=== PATIENT | female | born 1985 | race African-American/Black ===

== ENCOUNTER 2020-09-30 04:15 | Inpatient (IN) | payer OTHER ==
[~2020-09-30] VITALS: Ht 165.1 cm; Wt 182.0 kg
[~2020-09-30 04:15] MED LIST: ACET325T9 PO; FURO-69 PO; GLIP10TA13 PO; GLYB2.5T2 PO; IBUP-1060 PO; LABE200T4 PO; LISI1TAB23 PO; METH500T10 PO; NIFE10CA PO; NIFE20CA PO; NIFE30TA95 PO; OXYC1TAB15 PO; OXYC1TAB19 PO; PREN1COM12 PO; SERT25TA; TRAM50TA PO
--- NOTE | 2020-09-30 04:41 | PHYS DOC ---
Past Medical History Past Medical History: Hypertension Past Surgical History: Additional Past Surgical Histo: C-sec x3. Smoking Status: Never Smoker Alcohol Use: None Drug Use: None General Adult EDM: Chief Complaint: SHORTNESS OF BREATH HPI: HPI: Patient is a 34 year old female with past medical history hypertension diabetes presents with a chief complaint of shortness of breath. Patient was diagnosed with COVID-19 this past Thursday. Patient states she had symptoms which included shortness of breath cough fever muscle aches x1 week. Patient is not vaccinated against COVID-19. Patient states over the last 2 days shortness of breath is progressed to become worse. Patient states she cannot catch her breath therefore she called 911. Upon EMS arrival patient's oxygen saturation in the upper 80s on room air. On arrival patient patient on 15 L nonrebreather with oxygen saturations 91-92%. Patient is currently febrile 100.4 axillary. Review of Systems: Review of Systems: Review of systems: Constitutional symptoms- Positive fever, no chills. Eyes- No Discharge, No Visual Loss Respiratory symptoms- Positive shortness of breath, No wheezing, No Dyspnea on Exertion positive cough Cardiovascular Systems; Positive chest pain, No Palpitations, No syncope Gastrointestinal symptoms: NO abdominal pain, no nausea, no vomiting or diarrhea. Genitourinary symptoms: No dysuria. Musculoskeletal symptoms: No back pain No extremity pain. NEUROLOGICAL Symptoms: No headache, no generalized weakness; No focal Weakness Skin: No rash. Heart Score: C/O Chest Pain: N/A Risk Factors: Risk Factors: DM, Current or recent (<one month) smoker, HTN, HLP, family history of CAD, obesity. Risk Scores: Score 0 - 3: 2.5% MACE over next 6 weeks - Discharge Home Score 4 - 6: 20.3% MACE over next 6 weeks - Admit for Clinical Observation Score 7 - 10: 72.7% MACE over next 6 weeks - Early Invasive Strategies Current Medications: Current Medications Medications (Trade) Dose Ordered Sig/Vidal Start Time Stop Time Status Last Admin Dose Admin Acetaminophen (Tylenol) 650 mg 1X ONCE 09/30/20 04:45 09/30/20 04:46 UNV Dexamethasone Sodium Phosphate (Decadron) 10 mg 1X ONCE 09/30/20 05:00 09/30/20 05:01 Allergies: Allergies: Allergies Coded Allergies Type Severity Reaction Last Updated Verified No Known Drug Allergies 2/17/14 No Physical Exam: PE: General: alert, no acute distress. Skin: warm, dry and intact, no erythema, no rash. HENT: bilateral external ears normal, oropharynx moist, nose normal. Head:: Normocephalic, atraumatic. Neck: Trachea midline. Eyes: EOMI, Normal conjunctiva, No drainage CARDIOVASCULAR: Tachycardic RESPIRATORY: No respiratory distress., Tachypneic, decreased breath sounds diffuse Back: Full range of motion. MUSCULOSKELETAL: Full range of motion of bilateral upper and lower extremities. GASTROINTESTINAL: Abdomen soft without rebound or guarding. NEUROLOGICAL: Alert and noted to person, place and time. No neurological deficits observed Psychiatric: Cooperative. Normal judgment EKG: EKG: [] Performed at 0426 Rate 99 Normal sinus rhythm No ST elevation No ST depression No acute IN Radiology/Procedures: Radiology/Procedures: [] Impression: WET READ diffuse infiltrates Course & Med Decision Making: Course & Med Decision Making Pertinent Labs and Imaging studies reviewed. (See chart for details) []Patient hypoxic. Diagnoised with COVID 19 on thursday. Treated with omental oxygen, decadron, and tylenol. Lactic acid and blood cultures obtained. Admitted to hospitalist. Started on Levaquin Dragon Disclaimer: Jerzy Disclaimer: This electronic medical record was generated, in whole or in part, using a voice recognition dictation system. Departure Departure Impression: Primary Impression: COVID-19 Additional Impression: Hypoxia Disposition: ADMITTED INPATIENT Condition: STABLE LAITH SHAH DO Sep 30, 2020 04:41
[2020-09-30] MEDS ORDERED: DEXAMETHASONE SOD PHOS 4 MG/ML VIAL IVP ONE (05:00)
[2020-09-30] MEDS ORDERED: ACETAMINOPHEN 325 MG TABLET. PO ONE (05:00)
[2020-09-30] MEDS ORDERED: ONDANSETRON PF 4 MG/2 ML VIAL. IVP PRN (05:15)
--- NOTE | 2020-09-30 05:25 | RAD ---
AP chest x-ray HISTORY: Cough, nausea, vomiting, Covid infection. FINDINGS: Heart size upper limits normal. Mediastinal silhouette is normal. No pneumothorax. No pleur al effusions. Extensive bilateral pulmonary opacities with consolidation at the right middle lobe amy houetting the minor fissure and bilateral lower lobe consolidation with air bronchograms. IMPRESSION: Extensive pulmonary opacities with areas of consolidation at the lung bases most likely m ultilobar pneumonia versus noncardiogenic pulmonary edema from ARDS. Electronically signed by: Carlos Swartz MD (09/30/2020 5:23 AM) [facility]
[2020-09-30] MEDS: MORPHINE SULFATE 4 MG/ML INJ. IVP PRN ×3 (05:33→22:34)
--- NOTE | 2020-09-30 05:48 | EKG ---
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
[2020-09-30 05:54] LABS: BASO % 0 % (0-3); EOS % 0 % (0-3); HEMATOCRIT 38.2 % (36.0-47.0); HEMOGLOBIN 12.8 g/dL (12.0-15.5); LYMPH # 0.4 x10^3/uL (1.0-4.8); LYMPH % 3 % (24-48); MEAN CORPUSCULAR HEMOGLOBIN 28 pg (25-35); MEAN CORPUSCULAR HGB CONC 34 g/dL (31-37); MEAN CORPUSCULAR VOLUME 83 fL (79-100); MONO # 0.3 x10^3/uL (0.0-1.1); MONO % 2 % (0-9); NEUT # 11.5 x10^3/uL (1.8-7.7); NEUT % 94 % (31-73); PLATELET COUNT 268 x10^3/uL (140-400); RED BLOOD COUNT 4.62 x10^6/uL (3.50-5.40); RED CELL DISTRIBUTION WIDTH 13.6 % (11.5-14.5); WHITE BLOOD COUNT 12.2 x10^3/uL (4.0-11.0)
[2020-09-30 06:10] LABS: ALBUMIN 2.2 g/dL (3.4-5.0); ALBUMIN/GLOBULIN RATIO 0.4 (1.0-1.7); CALCIUM 8.8 mg/dL (8.5-10.1); CREATININE 0.8 mg/dL (0.6-1.0); GFR 98.8; TOTAL BILIRUBIN 0.4 mg/dL (0.2-1.0); TOTAL PROTEIN 7.9 g/dL (6.4-8.2)
[2020-09-30 06:12] LABS: POTASSIUM 2.8 mmol/L (3.5-5.1)
[2020-09-30] MEDS ORDERED: POTASSIUM CHLORIDE 20 MEQ TABLET.ER. PO ONE (06:30)
[2020-09-30 09:30] LABS: % BANDS 24 % (0-9); % LYMPHS 2 % (24-48); % MONOS 3 % (0-10); % SEGS 71 % (35-66); PLT ESTIMATE ADEQUATE (ADEQUATE)
[2020-09-30] MEDS ORDERED: DEXTROSE 50% 25 GM / 50ML DISP.SYRIN. IV PRN (12:45)
[2020-09-30 13:00] VITALS: BP 165/98
[2020-09-30] MEDS ORDERED: INSULIN LISPRO 300 UNITS/3 ML VIAL. SQ ONE (13:00)
[2020-09-30] MEDS ORDERED: guaiFENesin/CODEINE 100mg/10mg 5 ML LIQUID PO PRN (14:00)
[2020-09-30 15:00] VITALS: BP 169/93
[2020-09-30] MEDS ORDERED: REMDESIVIR LOAD in IV NORMAL SALINE 250ML TV IV ONE (15:00)
[2020-09-30] MEDS: ASPIRIN CHEWABLE 81 MG TABLET. PO SCH (15:59)
[2020-09-30] MEDS: MULTIVITAMIN with MINERAL TABLET. PO SCH (15:59)
[2020-09-30] MEDS: cefTRIAXone IV Push 1 GM VIAL. IVP SCH (15:59)
[2020-09-30] MEDS: ACETAMINOPHEN 325 MG TABLET. PO PRN ×2 (16:01→22:33)
[2020-09-30] MEDS: INSULIN LISPRO 300 UNITS/3 ML VIAL. SQ SCH (17:00)
[2020-09-30 19:00] VITALS: BP 138/79
[2020-09-30] MEDS ORDERED: HYDR25TA10 PO (20:26)
[2020-09-30] MEDS ORDERED: LOSA50TA15 PO (20:26)
[2020-09-30] MEDS ORDERED: FLUO60TA PO (20:26)
--- NOTE | 2020-09-30 20:29 | NUR ---
I.E. HOME MEDICATIONS: PATIENT UNABLE TO ACCURATELY REPORT HOME MEDICATIONS AND DOSAGES. COULD ONLY NAME HYDROCHLOROTHIAZIDE.
[2020-09-30] MEDS: methylPREDNISolone SOD SUCC PF 40 MG/ML VIAL. IV SCH (20:55)
[2020-09-30] MEDS ORDERED: INSULIN GLARGINE SYRINGE. SQ SCH (21:00)
[2020-09-30 22:00] VITALS: BP 144/82
[2020-09-30] MEDS ORDERED: ENOXAPARIN 40 MG/0.4 ML SYRINGE. SQ SCH (22:00)
--- NOTE | 2020-09-30 22:13 | CONS ---
PULMONARY CONSULTATION ATTENDING PHYSICIAN: Isai Laboy MD REASON FOR CONSULTATION: Respiratory failure, COVID-19 pneumonia, ARDS. HISTORY OF PRESENT ILLNESS: The patient is a 34-year-old morbidly obese female who has a BMI of 58. The patient was diagnosed with COVID-19 past Thursday. She was brought into the hospital with increasing cough, muscle aches and progressive dyspnea. She is not vaccinated against COVID-19. The patient called 911. She was brought into the emergency room. Her oxygen saturations were in the 80s on room air. She is now currently on the floor. She has high-grade fevers up to 102.3. The patient was seen by me via telemedicine. She has been on 15 liters nonrebreather mask and in addition, she is also on 15 liters high flow cannula. Her oxygen saturations with minimal activity drop in the high 80s. She denies any nausea, vomiting, no diarrhea. She says she does have some pain all her body. She is morbidly obese. She also has other comorbidities including diabetes and hypertension. PAST MEDICAL HISTORY: Significant for hypertension, diabetes. PAST SURGICAL HISTORY: . SOCIAL HISTORY: Nonsmoker. ALLERGIES: None. MEDICATIONS: Reviewed as listed in the MRAD including IV Solu-Medrol, doxycycline, remdesivir, and Rocephin. REVIEW OF SYSTEMS: A 12-point system obtained. Pertinent positives discussed in my presence illness, otherwise noncontributory. All systems that were negative were reviewed as well. FAMILY HISTORY: Noncontributory to lungs. PHYSICAL EXAMINATION: GENERAL: She is ill appearing. VITAL SIGNS: Blood pressure 138/79, pulse ox is 89-90% on maximum amount of oxygen as discussed above. Fever of 102.3. She appears mildly tachypneic. She is morbidly obese. EXTREMITIES: With trace pitting edema. No physical exam performed, but this is a visual inspection of the patient. LABORATORY DATA: Reviewed. White cell count 12.2, hemoglobin 12.8, platelets are 268. Potassium 2.8, BUN 6, creatinine 0.8. Chest x-ray reviewed. It revealed bilateral infiltrates. IMPRESSION: 1. Acute hypoxic respiratory failure secondary to COVID-19 viral pneumonia/ARDS/acute lung injury. 2. Underlying morbid obesity with a BMI of 58, is another main contributing factor to the severity of hypoxia. 3. No significant tobacco history. 4. Abnormal chest x-ray with bilateral interstitial infiltrates consistent with viral pneumonia. 5. Hypokalemia. 6. High-grade fever secondary to COVID-19 viral infection. RECOMMENDATIONS: 1. Discussed with RN and the patient. At this time, I would initiate Vapotherm at 100% FiO2 and 40 liters flow. I am concerned about her respiratory status and a high risk for intubation. I will transfer to the ICU if bed is available. 2. Continue present IV steroids. 3. Remdesivir per protocol. 4. Continue empiric antibiotics. 5. Monitor for fever. 6. Add Lovenox for DVT prophylaxis. 7. Replace potassium. 8. Discussed with RN. Chart reviewed, imaging studies reviewed. The patient is very critically ill. Critical care time 35 minutes including decision making. ANETTE DR: NATALYA/spencer TID: [id number]
[2020-09-30] MEDS ORDERED: STERILE WATER for RESP 1,000 ML BAG. INH PRN (22:15)
[2020-09-30] MEDS: DOXYCYCLINE HYCLATE 100 MG in IV DEXTROSE 5% 100ML 100 ML IV SCH (22:35)
[2020-10-01] VITALS (20 sets, daily range): BP systolic 0–167; BP diastolic 81–170
--- NOTE | 2020-10-01 04:41 | NUR ---
PT TRANSFERRED TO ROOM [address] [place] [address] AT APPROX 2130. PT WAS ON 15L O2 VIA NRB, O2 SATURATION 88%, AND VISIBLY ANXIOUS. REMDESIVIR RESTARTED, AND TELEHEALTH VISIT WITH DR CURTIS PERFORMED AT BEDSIDE. PER DR CURTIS, VAPOTHERM WAS ORDERED AND PT STATED SHE WAS AGREEABLE TO INTUBATION IF NEEDED. CALL TO DR MARIE PLACED FOR ORDER FOR MOSCOSO CATHETER AND IV ATIVAN FOR ANXIETY. PT WAS MOVED TO ROOM 66 D/T MONITOR CONNECTION ISSUES IN ROOM 676, VAPOTHERM INITIATED AT 40LPM OF O2 PLUS 15L NRB. MORPHINE AND ATIVAN ADMINISTERED, O2 SATURATION NOW 96%. PT WAS EDUCATED ON NEED FOR VAPOTHERM, POSSIBLE NEED FOR INTUBATION, NEED FOR PICC LINE, AND USE OF CALL LIGHT. PT CURRENTLY APPEARS TO BE RESTING COMFORTABLY AT THIS TIME. WILL CONTINUE TO MONITOR.
[2020-10-01 07:35] LABS: BASE EXCESS ABG 4 mmol/L (-3-3); HCO3 ABG 26 mmol/L (21-28); PCO2 ABG 32 mmHg (35-46); PO2 ABG 55 mmHg (85-108); SAT O2 ABG 93 % (92-99)
[2020-10-01 07:37] LABS: FIO2 ABG 100% VAPOTHERM
[2020-10-01] MEDS: ASPIRIN CHEWABLE 81 MG TABLET. PO SCH (08:21)
[2020-10-01] MEDS: MULTIVITAMIN with MINERAL TABLET. PO SCH (08:21)
[2020-10-01] MEDS: methylPREDNISolone SOD SUCC PF 40 MG/ML VIAL. IV SCH ×2 (08:21→21:39)
[2020-10-01] MEDS: FAMOTIDINE 20 MG/2 ML VIAL IVP SCH ×2 (08:21→21:39)
[2020-10-01] MEDS ORDERED: ETOMIDATE 20 MG/10 ML VIAL. IV ONE ×2 (09:11→09:30)
[2020-10-01] MEDS ORDERED: SUCCINYLCHOLINE 200 MG/10 ML VIAL. ONE (09:11)
--- NOTE | 2020-10-01 09:21 | PDOC ---
PULMONARY PROGRESS NOTES DATE: 10/01/20 TIME: 09:18 Subjective Patient is currently on 100% Vapotherm at 40 L with additional 100% nonrebreather, patient has tachycardic, tachypneic and hypertensive, she appears in mild distress Nursing reports that she is intermittently hypoxic, and taking off her mask Afebrile overnight Vitals Vital Signs Date Time Temp Pulse Resp B/P (MAP) Pulse Ox O2 Delivery O2 Flow Rate FiO2 10/01/20 08:05 66 vapotherm 40.0 10/01/20 02:40 95.7 112 19 136/87 (103) 95.7 Comments Patient seen during pandemic Mild distress Accessory muscle use No obvious rash or edema Labs Laboratory Tests Test 09/30/20 05:15 09/30/20 12:21 09/30/20 16:50 09/30/20 20:28 White Blood Count 12.2 x10^3/uL (4.0-11.0) Red Blood Count 4.62 x10^6/uL (3.50-5.40) Hemoglobin 12.8 g/dL (12.0-15.5) Hematocrit 38.2 % (36.0-47.0) Mean Corpuscular Volume 83 fL (79-100) Mean Corpuscular Hemoglobin 28 pg (25-35) Mean Corpuscular Hemoglobin Concent 34 g/dL (31-37) Red Cell Distribution Width 13.6 % (11.5-14.5) Platelet Count 268 x10^3/uL (140-400) Neutrophils (%) (Auto) 94 % (31-73) Lymphocytes (%) (Auto) 3 % (24-48) Monocytes (%) (Auto) 2 % (0-9) Eosinophils (%) (Auto) 0 % (0-3) Basophils (%) (Auto) 0 % (0-3) Neutrophils # (Auto) 11.5 x10^3/uL (1.8-7.7) Lymphocytes # (Auto) 0.4 x10^3/uL (1.0-4.8) Monocytes # (Auto) 0.3 x10^3/uL (0.0-1.1) Eosinophils # (Auto) 0.0 x10^3/uL (0.0-0.7) Basophils # (Auto) 0.0 x10^3/uL (0.0-0.2) Segmented Neutrophils % 71 % (35-66) Band Neutrophils % 24 % (0-9) Lymphocytes % 2 % (24-48) Monocytes % 3 % (0-10) Platelet Estimate Adequate (ADEQUATE) Sodium Level 138 mmol/L (136-145) Potassium Level 2.8 mmol/L (3.5-5.1) Chloride Level 96 mmol/L (98-107) Carbon Dioxide Level 26 mmol/L (21-32) Anion Gap 16 (6-14) Blood Urea Nitrogen 6 mg/dL (7-20) Creatinine 0.8 mg/dL (0.6-1.0) Estimated GFR (Cockcroft-Gault) 98.8 BUN/Creatinine Ratio 8 (6-20) Glucose Level 366 mg/dL (70-99) Lactic Acid Level 1.3 mmol/L (0.4-2.0) Calcium Level 8.8 mg/dL (8.5-10.1) Total Bilirubin 0.4 mg/dL (0.2-1.0) Aspartate Amino Transf (AST/SGOT) 50 U/L (15-37) Alanine Aminotransferase (ALT/SGPT) 46 U/L (14-59) Alkaline Phosphatase 93 U/L (46-116) Total Protein 7.9 g/dL (6.4-8.2) Albumin 2.2 g/dL (3.4-5.0) Albumin/Globulin Ratio 0.4 (1.0-1.7) Glucose (Fingerstick) 404 mg/dL (70-99) 326 mg/dL (70-99) 307 mg/dL (70-99) Test 10/01/20 07:30 O2 Saturation 93 % (92-99) Arterial Blood pH 7.53 (7.35-7.45) Arterial Blood pCO2 at Patient Temp 32 mmHg (35-46) Arterial Blood pO2 at Patient Temp 55 mmHg (85-108) Arterial Blood HCO3 26 mmol/L (21-28) Arterial Blood Base Excess 4 mmol/L (-3-3) FiO2 100% vapotherm Laboratory Tests Test 09/30/20 12:21 09/30/20 16:50 09/30/20 20:28 10/01/20 07:30 Glucose (Fingerstick) 404 mg/dL (70-99) 326 mg/dL (70-99) 307 mg/dL (70-99) O2 Saturation 93 % (92-99) Arterial Blood pH 7.53 (7.35-7.45) Arterial Blood pCO2 at Patient Temp 32 mmHg (35-46) Arterial Blood pO2 at Patient Temp 55 mmHg (85-108) Arterial Blood HCO3 26 mmol/L (21-28) Arterial Blood Base Excess 4 mmol/L (-3-3) FiO2 100% vapotherm Medications Active Scripts Medications Dose Route/Sig Max Daily Dose Days Date Category Fluoxetine Hcl 60 Mg Tablet 1 Tab PO DAILY 09/30/20 Reported Losartan Potassium 50 Mg Tablet 1 Tab PO DAILY 09/30/20 Reported Hydrochlorothiazide 25 Mg Tablet 1 Tab PO DAILY 09/30/20 Reported Labetalol Hcl 200 Mg Tablet 1 Tab PO BID 12/28/14 Rx Lasix (Furosemide) 20 Mg Tablet 1 Tab PO DAILY 12/28/14 Rx Percocet 5-325 Mg Tablet (Oxycodone/Acetaminophen) 1 Each Tablet 1 Tab PO Q4HRS W/A 12/28/14 Rx Ibuprofen 800 Mg Tablet 800 Mg PO Q6H PRN 12/28/14 Rx Methyldopa 500 Mg Tablet 500 Mg PO QID 12/23/14 Reported Zoloft (Sertraline Hcl) 25 Mg Tablet 25 Mg .ROUTE DAILY 12/23/14 Reported Glyburide 2.5 Mg Tablet 2.5 Mg PO QID 12/23/14 Reported Procardia (Nifedipine) 10 Mg Capsule 60 Mg PO DAILY 12/23/14 Reported Tylenol (Acetaminophen) 325 Mg Tablet 325 Mg PO 08/25/13 Reported Prena1 Plus Combo Pack ( No.39/Iron/Fa #6/Dha) 1 Each Combo..pkg 1 Each PO 08/25/13 Reported Impression . IMPRESSION: 1. Acute hypoxic respiratory failure secondary to COVID-19 viral pneumonia/ARDS/acute lung injury.----- worsening, plan for intubation 2. Underlying morbid obesity with a BMI of 58, is another main contributing factor to the severity of hypoxia. 3. No significant tobacco history. 4. Abnormal chest x-ray with bilateral interstitial infiltrates consistent with viral pneumonia. 5. Hypokalemia. 6. High-grade fever secondary to COVID-19 viral infection. Plan . Updated 10/01/2020 Patient is in mild distress, currently on Vapotherm 40 L 100% with additional 100% nonrebreather, proceed with intubation Chest x-ray and ABG, make changes as needed Continue IV steroids for full 10-day course, started on 09/30/2020 Continue remdesivir for full course Continue empiric antibiotics, currently on Rocephin and doxycycline HTN per PCP Monitor electrolytes per PCP Consult dietitian for tube feeding recommendations DVT/GI prophylaxis:lovenox Discussed with RN and RT message left for . will try to reach him again Critical care time 30 minutes 09/30/20 RECOMMENDATIONS: 1. Discussed with RN and the patient. At this time, I would initiate Vapotherm at 100% FiO2 and 40 liters flow. I am concerned about her respiratory status and a high risk for intubation. I will transfer to the ICU if bed is available. 2. Continue present IV steroids. 3. Remdesivir per protocol. 4. Continue empiric antibiotics. 5. Monitor for fever. 6. Add Lovenox for DVT prophylaxis. 7. Replace potassium. 8. Discussed with RN. Chart reviewed, imaging studies reviewed. The patient is very critically ill. NILO CURTIS MD Oct 01, 2020 09:21
[2020-10-01] MEDS: PROPOFOL 100 ML IV PRN ×5 (09:44→21:35)
[2020-10-01] MEDS ORDERED: SUCCINYLCHOLINE 200 MG/10 ML VIAL. IV ONE (09:45)
[2020-10-01] MEDS: MIDAZOLAM 100mg/100ml NS BAG 100 ML IV PRN ×2 (09:45→18:02)
[2020-10-01] MEDS ORDERED: PROPOFOL 10 MG/ML (20ML) VIAL. IV ONE (09:45)
[2020-10-01] MEDS: VECURONIUM BOLUS 10 MG VIAL. IV PRN (09:48)
--- NOTE | 2020-10-01 10:08 | PDOC1 ---
History and Physical Date of Admission Date of Admission DATE: 10/01/20 TIME: 10:05 Identification/Chief Complaint Chief Complaint SOA COVID POS History of Present Illness History of Present Illness 34 year old female past medical history hypertension diabetes presented with a chief complaint of shortness of breath. diagnosed with COVID-19 this past Thursday. in er c/o shortness of breath cough fever muscle aches x1 week. //not vaccinated against COVID-19. Patient states over the last 2 days shortness of breath is progressed to become worse. Patient states she cannot catch her breath therefore she called 911. Upon EMS arrival patient's oxygen saturation in the upper 80s on room air. On arrival in ER patient patient on 15 L nonrebreather NOW IN NEED OF INTUBATION FOR Covid 19 pneumonia // Viral sepsis Acute hypoxic resp failure Super morbid obesity CXR C/W Extensive pulmonary opacities with areas of consolidation // multilobar pneumonia versus noncardiogenic pulmonary edema from ARDS. Past Medical History Past Medical History Past Medical History Past Medical History: Hypertension Past Surgical History: Additional Past Surgical Histo: C-sec x3. Smoking Status: Never Smoker Alcohol Use: None Drug Use: None FHX OBESITY Family History Family History: Hypertension Social History Smoke: No ALCOHOL: none Drugs: None Current Problem List Problem List Problems Medical Problems: (1) COVID-19 Status: Acute (2) Hypoxia Status: Acute Current Medications Current Medications Current Medications Dexamethasone Sodium Phosphate (Decadron) 10 mg 1X ONCE IVP Last administered on 09/30/20at 04:48; Start 09/30/20 at 05:00; Stop 09/30/20 at 05:01; Status DC Acetaminophen (Tylenol) 650 mg 1X ONCE PO Last administered on 09/30/20at 04:56; Start 09/30/20 at 05:00; Stop 09/30/20 at 05:01; Status DC Ondansetron HCl (Zofran) 4 mg PRN Q8HRS PRN IVP NAUSEA/VOMITING 1ST CHOICE Last administered on 09/30/20at 05:32; Start 09/30/20 at 05:15; Stop 10/01/20 at 05:14; Status DC Morphine Sulfate (Morphine Sulfate) 4 mg PRN Q2HR PRN IVP SEVERE PAIN 7-10 Last administered on 09/30/20at 22:34; Start 09/30/20 at 05:15; Stop 10/01/20 at 05:14; Status DC Levofloxacin/ Dextrose 150 ml @ 100 mls/hr 1X ONCE IV Last administered on 09/30/20at 08:12; Start 09/30/20 at 06:00; Stop 09/30/20 at 07:29; Status DC Potassium Chloride (Klor-Con) 40 meq 1X ONCE PO Last administered on 09/30/20at 08:12; Start 09/30/20 at 06:30; Stop 09/30/20 at 06:31; Status DC Insulin Human Lispro (HumaLOG) 10 units 1X ONCE SQ Last administered on 09/30/20at 12:50; Start 09/30/20 at 13:00; Stop 09/30/20 at 13:01; Status DC Insulin Glargine (Lantus Syringe) 10 unit QHS SQ Last administered on 09/30/20at 20:56; Start 09/30/20 at 21:00 Insulin Human Lispro (HumaLOG) 0-7 UNITS TIDWMEALS SQ Last administered on 09/30/20at 17:00; Start 09/30/20 at 17:00 Dextrose (Dextrose 50%-Water Syringe) 12.5 gm PRN Q15MIN PRN IV SEE COMMENTS; Start 09/30/20 at 12:45 Acetaminophen (Tylenol) 650 mg PRN Q6HRS PRN PO MILD PAIN / TEMP > 100.3'F Last administered on 09/30/20at 22:33; Start 09/30/20 at 13:45 Remdesivir 200 mg/ Sodium Chloride 210 ml @ 210 mls/hr 1X ONCE IV Last administered on 09/30/20at 15:59; Start 09/30/20 at 15:00; Stop 09/30/20 at 15 :59; Status DC Remdesivir 100 mg/ Sodium Chloride 230 ml @ 460 mls/hr Q24H IV ; Start 10/01/20 at 15:00; Stop 10/04/20 at 15:29 Aspirin (Aspirin Chewable) 81 mg DAILYWBKFT PO Last administered on 10/01/20at 08:21; Start 09/30/20 at 15:00 Guaifenesin/ Codeine Phosphate (Robitussin Ac) 5 ml PRN Q6HRS PRN PO COUGH Last administered on 09/30/20 16:59; Start 09/30/20 at 14:00 Multivitamins (Thera M Plus) 1 tab DAILY PO Last administered on 10/01/20 08:21; Start 09/30/20 at 15:00 Ceftriaxone Sodium (Rocephin) 1 gm Q24H IVP Last administered on 09/30/20at 15:59; Start 09/30/20 at 15:00 Doxycycline Hyclate 100 mg/ Dextrose 100 ml @ 50 mls/hr Q12HR IV Last administered on 09/30/20at 22:35; Start 09/30/20 at 21:00 Methylprednisolone Sodium Succinate (SOLU-Medrol 40MG VIAL) 40 mg BID IV Last administered on 10/01/20 08:21; Start 09/30/20 at 21:00 Enoxaparin Sodium (Lovenox 40mg Syringe) 40 mg Q24H SQ ; Start 09/30/20 at 22:00; Status Cancel Enoxaparin Sodium (Lovenox 60mg Syringe) 60 mg Q12HR SQ Last administered on 10/01/20 08:22; Start 09/30/20 at 22:00 Sterile Water (WATER for RESP) 1,000 ml CONT PRN INH VIA VAPOTHERM DEVICE; St art 09/30/20 at 22:15 Lorazepam (Ativan Inj) 2 mg PRN Q4HRS PRN IVP ANXIETY / AGITATION Last administered on 10/01/20 04:20; Start 09/30/20 at 22:15 Famotidine (Pepcid Vial) 20 mg BID IVP Last administered on 10/01/20 08:21; Start 10/01/20 at 09:00 Fentanyl Citrate 30 ml @ 0 mls/hr CONT PRN IV SEE PROTOCOL Last administered on 10/01/20 09:55; Start 10/01/20 at 08:45 Propofol 100 ml @ 0 mls/hr CONT PRN IV PER PROTOCOL Last administered on 10/01/20 09:44; Start 10/01/20 at 08:45 Midazolam HCl 100 ml @ 0 mls/hr CONT PRN IV SEE PROTOCOL Last administered on 10/01/20 09:45; Start 10/01/20 at 08:45 Vecuronium Lingle (Norcuron Bolus) 6 mg Q4HRS PRN IV VENTILATOR COMPLIANCE Last administered on 10/01/20at 09:48; Start 10/01/20 at 08:45 Succinylcholine Chloride (Anectine) 200 mg STK-MED ONCE .ROUTE ; Start 10/01/20 at 09:11; Stop 10/01/20 at 09:11; Status DC Etomidate (Amidate) 20 mg STK-MED ONCE IV ; Start 10/01/20 at 09:11; Stop 10/01/20 at 09:11; Status DC Succinylcholine Chloride (Anectine) 100 mg 1X ONCE IV Last administered on 10/01/20at 09:42; Start 10/01/20 at 09:45; Stop 10/01/20 at 09:47; Status DC Propofol (Diprivan) 80 mg 1X ONCE IV Last administered on 10/01/20at 09:42; Start 10/01/20 at 09:45; Stop 10/01/20 at 09:47; Status DC Active Scripts Active Labetalol Hcl 200 Mg Tablet 1 Tab PO BID Lasix (Furosemide) 20 Mg Tablet 1 Tab PO DAILY Percocet 5-325 Mg Tablet (Oxycodone/Acetaminophen) 1 Each Tablet 1 Tab PO Q4HRS W/A Ibuprofen 800 Mg Tablet 800 Mg PO Q6H PRN Reported Fluoxetine Hcl 60 Mg Tablet 1 Tab PO DAILY Losartan Potassium 50 Mg Tablet 1 Tab PO DAILY Hydrochlorothiazide 25 Mg Tablet 1 Tab PO DAILY Methyldopa 500 Mg Tablet 500 Mg PO QID Zoloft (Sertraline Hcl) 25 Mg Tablet 25 Mg .ROUTE DAILY Glyburide 2.5 Mg Tablet 2.5 Mg PO QID Procardia (Nifedipine) 10 Mg Capsule 60 Mg PO DAILY Tylenol (Acetaminophen) 325 Mg Tablet 325 Mg PO Prena1 Plus Combo Pack ( No.39/Iron/Fa #6/Dha) 1 Each Combo..pkg 1 Each PO Allergies Allergies: Coded Allergies: No Known Drug Allergies (Unverified , 04/04/13) ROS Review of System Constitutional symptoms- Positive fever, no chills. Eyes- No Discharge, No Visual Loss Respiratory symptoms- Positive shortness of breath, No wheezing, No Dyspnea on Exertion positive cough Cardiovascular Systems; Positive chest pain, No Palpitations, No syncope Gastrointestinal symptoms: NO abdominal pain, no nausea, no vomiting or diarrhea. Genitourinary symptoms: No dysuria. Musculoskeletal symptoms: No back pain No extremity pain. NEUROLOGICAL Symptoms: No headache, no generalized weakness; No focal Weakness Skin: No rash. 14 PT ROS OTHERWISE NEG General: YES: Fatigue Physical Exam Physical Exam Head:: Normocephalic, atraumatic. Neck: Trachea midline. Eyes: EOMI, Normal conjunctiva, No drainage CARDIOVASCULAR: Tachycardic RESPIRATORY: No respiratory distress., Tachypneic, decreased breath sounds diffuse Back: Full range of motion. MUSCULOSKELETAL: Full range of motion of bilateral upper and lower extremities. GASTROINTESTINAL: Abdomen soft without rebound or guarding. HEENT: Atraumatic Extremities: No cyanosis Vitals Vitals Vital Signs Date Time Temp Pulse Resp B/P (MAP) Pulse Ox O2 Delivery O2 Flow Rate FiO2 10/01/20 09:55 24 80 10/01/20 09:44 Ventilator 10/01/20 08:05 40.0 10/01/20 02:40 95.7 112 136/87 (103) 95.7 Labs Labs Laboratory Tests Test 09/30/20 05:15 09/30/20 12:21 09/30/20 16:50 09/30/20 20:28 White Blood Count 12.2 x10^3/uL (4.0-11.0) Red Blood Count 4.62 x10^6/uL (3.50-5.40) Hemoglobin 12.8 g/dL (12.0-15.5) Hematocrit 38.2 % (36.0-47.0) Mean Corpuscular Volume 83 fL (79-100) Mean Corpuscular Hemoglobin 28 pg (25-35) Mean Corpuscular Hemoglobin Concent 34 g/dL (31-37) Red Cell Distribution Width 13.6 % (11.5-14.5) Platelet Count 268 x10^3/uL (140-400) Neutrophils (%) (Auto) 94 % (31-73) Lymphocytes (%) (Auto) 3 % (24-48) Monocytes (%) (Auto) 2 % (0-9) Eosinophils (%) (Auto) 0 % (0-3) Basophils (%) (Auto) 0 % (0-3) Neutrophils # (Auto) 11.5 x10^3/uL (1.8-7.7) Lymphocytes # (Auto) 0.4 x10^3/uL (1.0-4.8) Monocytes # (Auto) 0.3 x10^3/uL (0.0-1.1) Eosinophils # (Auto) 0.0 x10^3/uL (0.0-0.7) Basophils # (Auto) 0.0 x10^3/uL (0.0-0.2) Segmented Neutrophils % 71 % (35-66) Band Neutrophils % 24 % (0-9) Lymphocytes % 2 % (24-48) Monocytes % 3 % (0-10) Platelet Estimate Adequate (ADEQUATE) Sodium Level 138 mmol/L (136-145) Potassium Level 2.8 mmol/L (3.5-5.1) Chloride Level 96 mmol/L (98-107) Carbon Dioxide Level 26 mmol/L (21-32) Anion Gap 16 (6-14) Blood Urea Nitrogen 6 mg/dL (7-20) Creatinine 0.8 mg/dL (0.6-1.0) Estimated GFR (Cockcroft-Gault) 98.8 BUN/Creatinine Ratio 8 (6-20) Glucose Level 366 mg/dL (70-99) Lactic Acid Level 1.3 mmol/L (0.4-2.0) Calcium Level 8.8 mg/dL (8.5-10.1) Total Bilirubin 0.4 mg/dL (0.2-1.0) Aspartate Amino Transf (AST/SGOT) 50 U/L (15-37) Alanine Aminotransferase (ALT/SGPT) 46 U/L (14-59) Alkaline Phosphatase 93 U/L (46-116) Total Protein 7.9 g/dL (6.4-8.2) Albumin 2.2 g/dL (3.4-5.0) Albumin/Globulin Ratio 0.4 (1.0-1.7) Glucose (Fingerstick) 404 mg/dL (70-99) 326 mg/dL (70-99) 307 mg/dL (70-99) Test 10/01/20 07:30 O2 Saturation 93 % (92-99) Arterial Blood pH 7.53 (7.35-7.45) Arterial Blood pCO2 at Patient Temp 32 mmHg (35-46) Arterial Blood pO2 at Patient Temp 55 mmHg (85-108) Arterial Blood HCO3 26 mmol/L (21-28) Arterial Blood Base Excess 4 mmol/L (-3-3) FiO2 100% vapotherm Laboratory Tests Test 09/30/20 12:21 09/30/20 16:50 09/30/20 20:28 10/01/20 07:30 Glucose (Fingerstick) 404 mg/dL (70-99) 326 mg/dL (70-99) 307 mg/dL (70-99) O2 Saturation 93 % (92-99) Arterial Blood pH 7.53 (7.35-7.45) Arterial Blood pCO2 at Patient Temp 32 mmHg (35-46) Arterial Blood pO2 at Patient Temp 55 mmHg (85-108) Arterial Blood HCO3 26 mmol/L (21-28) Arterial Blood Base Excess 4 mmol/L (-3-3) FiO2 100% vapotherm Images Images PATIENT: GABRIEL BROWN ACCOUNT: [id number] : 1985 LOCATION: ER AGE: 34 SEX: F EXAM STATUS: PRE ER ORD. PHYSICIAN: LAITH SHAH DO REASON: sob, COUGH, N/V/D, COVID + PROCEDURE: CHEST AP ONLY AP chest x-ray HISTORY: Cough, nausea, vomiting, Covid infection. FINDINGS: Heart size upper limits normal. Mediastinal silhouette is normal. No pneumothorax. No pleural effusions. Extensive bilateral pulmonary opacities with consolidation at the right middle lobe silhouetting the minor fissure and bilateral lower lobe consolidation with air bronchograms. IMPRESSION: Extensive pulmonary opacities with areas of consolidation at the lung bases most likely multilobar pneumonia versus noncardiogenic pulmonary edema from ARDS. Electronically signed by: Edgar Medina MD (09/30/2020 5:23 AM) [facility] DICTATED and SIGNED BY: EDGAR MEDINA MD DATE: 09/30/20 [id number] VTE Prophylaxis Ordered VTE Prophylaxis Devices: Yes VTE Pharmacological Prophylaxi: Yes Assessment/Plan Assessment/Plan IMPRESSION: Covid 19 pneumonia/ ARDS Viral sepsis Acute hypoxic resp failure Super morbid obesity Extensive pulmonary opacities with areas of consolidation // multilobar pneumonia versus noncardiogenic pulmonary edema from ARDS. plan ADMIT ICU BED Consult pulmonary dvt prophylaxis Vapotherm 40 L 100% with additional 100% nonrebreather, plan intubation 8-16 IV STEROIDS COVID 19 PROTOCOL IV DOXYCYCLINE 100MG BID SERIAL CXR Critically ill 35 MIN CC TIME Justifications for Admission Other Justification JERZY PRICE MD Oct 01, 2020 10:08
[2020-10-01] MEDS ORDERED: HEPARIN for SUB-Q USE 5,000 UNIT/ML VIAL. SQ SCH (10:15)
[2020-10-01] MEDS ORDERED: ONDANSETRON PF 4 MG/2 ML VIAL. IVP PRN (10:15)
[2020-10-01] MEDS ORDERED: BISACODYL 10 MG SUPP.RECT. PR PRN (10:15)
[2020-10-01] MEDS ORDERED: 0.9 % SODIUM CHLORIDE 10 ML DISP.SYRIN. IV PRN (10:15)
[2020-10-01] MEDS: INSULIN LISPRO 300 UNITS/3 ML VIAL. SQ SCH ×3 (10:45→18:07)
[2020-10-01] MEDS ORDERED: FAMOTIDINE 20 MG/2 ML VIAL IVP SCH (11:00)
--- NOTE | 2020-10-01 11:29 | NUR ---
SS following for discharge planning. SS reviewed pt chart and discussed with pt RN. Pt is from home and is now intubated and is currently on the vent at 100%. COVID19 positive. Pt on IV Remdesivir, IV Solu Medrol, IV Rocephin, and IV Doxycycline. Pt on Vec pushes, Fentanyl, Versed, and Propofol. Not stable. SS will continue to follow for discharge planning.
[2020-10-01] MEDS: DOXYCYCLINE HYCLATE 100 MG in IV DEXTROSE 5% 100ML 100 ML IV SCH ×2 (11:39→21:39)
[2020-10-01] MEDS: IV NORMAL SALINE 1000ML BAG 1,000 ML IV SCH ×2 (11:41→20:15)
--- NOTE | 2020-10-01 11:59 | NUR ---
At 0935 patient intubated requiring rapid titration of versed d/t non-compliance with ventilator. Starting rate at 1mg/hr and patient stabilized at 10mg/hr with a RASS score of -2. Versed gtt currently infusing at 10. Max rate during this time was 10mg/hr of medication administered during charting block and ended at 1000. Patient in rhythm, HR-105 , [id number]
--- NOTE | 2020-10-01 12:00 | RAD ---
XR CHEST 1V History: Reason: ett and gatric tube placement / Spl. Instructions: / History: Comparison: September 30, 2020 Findings: Increased diffuse pulmonary consolidations, right greater than left. Possible small left pleural effu glen. No pneumothorax. Interval right mainstem intubation. Enteric tube with tip below the diaphragm beyond the image. Impression: 1. Right mainstem intubation. Recommend retraction. 2. Increased diffuse pulmonary consolidations. FOR INTERNAL CODING PURPOSES Critical result: Findings discussed with nursing team Alex at 10/01/2020 11:56 AM. RESULT CODE: (C) Electronically signed by: Bertin Briceno DO (10/01/2020 11:57 AM) [id number]
[2020-10-01 12:07] LABS: BASE EXCESS COOX 3 mmol/L (-3-3); HCO3 COOX 28 mmol/L (21-28); METHEMOGLOBIN 0.4 % (0.0-1.9); OXYHEMOGLOBIN 96.5 %; PCO2 COOX 43 mmHg (35-46); PO2 COOX 93 mmHg (85-108); SAT O2 COOX 97 % (92-99)
[2020-10-01] MEDS: ACETAMINOPHEN 650 MG/20.3 ML SOLUTION. PEG PRN (12:29)
--- NOTE | 2020-10-01 13:47 | NUR ---
Allergies and reactions nkda INR none BUN 6 Cr 0.8 Platelets 268 Blood culture done yes 09-30-20 blood culture results no growth yet Order Verified yes Consent signed yes Previous PICC placement unknown Past Medical/Surgical history and current diagnosis reviewed yes Diabetes Problems breathing lying flat Septicemia/Bacteremia Special considerations for PICC line placement Infections Severe peripheral edema PICC placement indication Caustic medication class drug usage, Multiple/ Frequent blood draws, Poor peripheral intravenous access Paulina Monteiro RN PICC Nurse Addendum: 10/01/20 at 1355 by PAULINA MONTEIRO RN Amended: Links added.
--- NOTE | 2020-10-01 13:53 | NUR ---
Procedure: Following complete explanation of the PICC procedure including the indications, risks, and potential complications, informed consent was obtained. The possibility for infection was discussed along with signs, symptoms, and prevention. All the questions were answered.yes Written and verbal patient education was provided. yes Hand hygiene performed. yes Standardized central line checklist was utilized. yes The patient was placed in the supine position, the arm was prepped with chlorhexidine and patient draped with maximum sterile barrier. 2 mL 1% lidocaine was infiltrated into the skin to provide local anesthesia. A thorough assessment of right upper extremity completed. Using real-time ultrasound guidance and standardized micro puncture set, the basilic vein was punctured and a peel away sheath was placed using the modified Seldinger technique. A tip location device was used to ensure adequate catheter placement. The catheter was secured using a securement device and an antimicrobial patch was applied directly on the insertion site followed by a transparent dressing. All ports withdraw blood and flush without resistance. Patient tolerated the procedure without apparent complication(s). triple Lumen Power PICC placement successful and uncomplicated. Placement verified by EKG tip confirmation system and/or chest x-ray. Tip located in the CAJ Complications:none Addendum: 10/01/20 at 1355 by PEPE BERGER RN Amended: Links added.
[2020-10-01] MEDS: REMDESIVIR 100mg in NORMAL SALINE 250ML X 4 DAYS IV SCH (15:40)
[2020-10-01] MEDS: cefTRIAXone IV Push 1 GM VIAL. IVP SCH (15:40)
--- NOTE | 2020-10-01 17:20 | RAD ---
XR CHEST 1V CLINICAL INDICATIONS: Reason: ET tube repositioning, check position COMPARISON: Same day performed at 10:51 AM FINDINGS/ IMPRESSION: ET tube has been pulled back and now the tip is located 6 cm above the level of the ronald a. NG tube tip cannot be seen in this study. Right upper extremity PICC line has been placed and the tip is seen within the mid superior vena cava above the level of the right atrium. No pneumothorax is seen. Diffuse bilateral consolidative lung infiltrates are again apparent with relative sparing of b oth upper lobes. This is unchanged on right side. There has been mild improvement within the left mid lung zone from the prior study. Dense consolidation is still present within the left lower lung zone. Heart size and mediastinum are stable. Electronically signed by: Nolan Peace MD (10/01/2020 5:17 PM) [id number]
--- NOTE | 2020-10-01 19:09 | PDOC ---
Provider Note Date of Service: DATE: 10/01/20 TIME: 19:03 Provider Note Called to ICU for respiratory distress due to COVID 19. Propofol 80 mg and Anectine 100 mg IV for anesthesia. Intubated 1st try with [place] scope and #7.0 ETT. Cuff up. Equal and bilat breath sounds. CO2 detected by CO2 detector. Taped in place by R.T. Placed on vert. CXR pending. No complications. Justifications for Admission Other Justification ABDULAZIZ IBRAHIM MD Oct 01, 2020 19:08
[2020-10-01] MEDS ORDERED: INSULIN GLARGINE SYRINGE. SQ SCH (21:00)
[2020-10-02] VITALS (25 sets, daily range): BP systolic 99–132; BP diastolic 67–91
[2020-10-02] MEDS: PROPOFOL 100 ML IV PRN ×7 (00:25→22:52)
[2020-10-02] MEDS: MIDAZOLAM 100mg/100ml NS BAG 100 ML IV PRN ×2 (04:15→14:08)
--- NOTE | 2020-10-02 04:54 | RAD ---
AP chest x-ray HISTORY: Pneumonia. COMPARISON: Chest x-ray October 02, 2019 FINDINGS: Endotracheal tube tip 3 cm above the masood. Nasogastric tube extends to the abdomen. Right PICC line tip right atrium. Mild cardiomegaly is stable. No pneumothorax. There are extensive bilate ral pulmonary opacities grossly stable with areas of consolidation at the peripheral aspect of the mi d to inferior lungs. IMPRESSION: Lines and tubes as described above. Chest disease is stable. Electronically signed by: Carlos Swartz MD (10/02/2020 4:52 AM) [facility]
[2020-10-02 05:58] LABS: BASO % 0 % (0-3); EOS % 0 % (0-3); HEMATOCRIT 33.8 % (36.0-47.0); HEMOGLOBIN 11.2 g/dL (12.0-15.5); LYMPH # 0.5 x10^3/uL (1.0-4.8); LYMPH % 4 % (24-48); MEAN CORPUSCULAR HEMOGLOBIN 28 pg (25-35); MEAN CORPUSCULAR HGB CONC 33 g/dL (31-37); MEAN CORPUSCULAR VOLUME 83 fL (79-100); MONO # 0.6 x10^3/uL (0.0-1.1); MONO % 5 % (0-9); NEUT # 12.3 x10^3/uL (1.8-7.7); NEUT % 91 % (31-73); PLATELET COUNT 321 x10^3/uL (140-400); RED BLOOD COUNT 4.07 x10^6/uL (3.50-5.40); RED CELL DISTRIBUTION WIDTH 14.4 % (11.5-14.5); WHITE BLOOD COUNT 13.4 x10^3/uL (4.0-11.0)
[2020-10-02] MEDS ORDERED: DEXTROSE 50% 25 GM / 50ML DISP.SYRIN. IV PRN (06:00)
[2020-10-02] MEDS: IV NORMAL SALINE 1000ML BAG 1,000 ML IV SCH ×2 (06:03→18:37)
[2020-10-02] MEDS: INSULIN LISPRO 300 UNITS/3 ML VIAL. SQ SCH ×7 (06:08→18:00)
[2020-10-02 06:16] LABS: ALBUMIN 1.6 g/dL (3.4-5.0); ALBUMIN/GLOBULIN RATIO 0.3 (1.0-1.7); CALCIUM 8.6 mg/dL (8.5-10.1); GFR 76.3; POTASSIUM 3.6 mmol/L (3.5-5.1); TOTAL BILIRUBIN 0.3 mg/dL (0.2-1.0); TOTAL PROTEIN 7.2 g/dL (6.4-8.2)
[2020-10-02] MEDS: methylPREDNISolone SOD SUCC PF 40 MG/ML VIAL. IV SCH (08:13)
[2020-10-02] MEDS: MULTIVITAMINS,THERAPEUTIC 5 ML ORAL LIQUID. PEG SCH (08:13)
[2020-10-02] MEDS: ASPIRIN CHEWABLE 81 MG TABLET. PO SCH (08:13)
[2020-10-02] MEDS: FAMOTIDINE 20 MG/2 ML VIAL IVP SCH ×2 (08:14→21:25)
[2020-10-02] MEDS: DOXYCYCLINE HYCLATE 100 MG in IV DEXTROSE 5% 100ML 100 ML IV SCH ×2 (08:19→21:28)
[2020-10-02] MEDS: ELECTROLYTE (ICU) PROTOCOL. MC SCH (08:19)
[2020-10-02 08:55] LABS: BASE EXCESS ABG 0 mmol/L (-3-3); HCO3 ABG 24 mmol/L (21-28); PCO2 ABG 36 mmHg (35-46); PO2 ABG 66 mmHg (85-108); SAT O2 ABG 94 % (92-99)
[2020-10-02] MEDS ORDERED: INSULIN GLARGINE SYRINGE. SQ SCH (09:00)
[2020-10-02 09:43] LABS: FIO2 ABG 100% VENT
--- NOTE | 2020-10-02 09:59 | PDOC ---
[employer] PROGRESS NOTE Date of Service DOS: DATE: 10/02/20 TIME: 09:51 Chief Complaint Chief Complaint Covid 19 pneumonia/ ARDS Viral sepsis Acute hypoxic resp failure Super morbid obesity Extensive pulmonary opacities with areas of consolidation // multilobar pneumonia versus noncardiogenic pulmonary edema from ARDS. plan ADMIT ICU BED Consult pulmonary dvt prophylaxis Vapotherm 40 L 100% with additional 100% nonrebreather, plan intubation 8- IV STEROIDS COVID 19 PROTOCOL IV DOXYCYCLINE 100MG BID SERIAL CXR Critically ill History of Present Illness History of Present Illness 34 year old female past medical history hypertension diabetes presented with a chief complaint of shortness of breath. diagnosed with COVID-19 this past Thursday. in er c/o shortness of breath cough fever muscle aches x1 week. //not vaccinated against COVID-19. Patient states over the last 2 days shortness of breath is progressed to become worse. Patient states she cannot catch her breath therefore she called 911. Upon EMS arrival patient's oxygen saturation in the upper 80s on room air. On arrival in ER patient patient on 15 L nonrebreather NOW IN NEED OF INTUBATION FOR Covid 19 pneumonia // Viral sepsis Acute hypoxic resp failure Super morbid obesity CXR C/W Extensive pulmonary opacities with areas of consolidation // multilobar pneumonia versus noncardiogenic pulmonary edema from ARDS. 10/02/2020: Afe low-grade fever in ICU yesterday (99.6 F). Intubated in ICU yesterday, on vent with FiO2 100%, PEEP 8. She was initiated on remdesivir. We will continue treatment with IV steroids and antibiotics. Still hyperglycemic today; will adjust insulin. Appreciate pulmonology recommendations and management patient. Critical care time 30 minutes spent reviewing charts, reviewing labs, examination, discussion with RN. Vitals/I&O Vitals/I&O: Vital Signs Date Time Temp Pulse Resp B/P (MAP) Pulse Ox O2 Delivery O2 Flow Rate FiO2 10/02/20 07:52 94 Ventilator 10/02/20 06:00 92 20 107/73 (84) 10/02/20 04:00 99.6 99.6 10/01/20 10:25 98.0 I & O 10/01/20 10/01/20 10/02/20 15:00 23:00 07:00 Intake Total 100 ml 1201 ml 1905 ml Output Total 750 ml 430 ml 715 ml Balance -650 ml 771 ml 1190 ml Physical Exam General: Other (Intubated and sedated) Heart: Regular rate Lungs: Other (Intubated) Abdomen: Soft, No tenderness Extremities: No clubbing, No cyanosis Skin: No rashes, No breakdown Labs Labs: Laboratory Tests Test 10/01/20 10:37 10/01/20 11:55 10/01/20 12:18 10/01/20 14:30 Glucose (Fingerstick) 309 mg/dL (70-99) 301 mg/dL (70-99) O2 Saturation 97 % (92-99) Arterial Blood pH 7.43 (7.35-7.45) Arterial Blood pCO2 at Patient Temp 43 mmHg (35-46) Arterial Blood pO2 at Patient Temp 93 mmHg (85-108) Arterial Blood HCO3 28 mmol/L (21-28) Arterial Blood Base Excess 3 mmol/L (-3-3) Oxyhemoglobin 96.5 % Methemoglobin 0.4 % (0.0-1.9) Carbon Monoxide, Quantitative 0.3 % (0.0-1.9) FiO2 100 Lactate Dehydrogenase 554 U/L (81-234) Troponin I Quantitative 0.434 ng/mL (0.000-0.055) Thyroid Stimulating Hormone (TSH) 0.140 uIU/mL (0.358-3.74) Test 10/01/20 18:05 10/01/20 23:40 10/02/20 05:30 10/02/20 05:33 Glucose (Fingerstick) 319 mg/dL (70-99) 344 mg/dL (70-99) 370 mg/dL (70-99) White Blood Count 13.4 x10^3/uL (4.0-11.0) Red Blood Count 4.07 x10^6/uL (3.50-5.40) Hemoglobin 11.2 g/dL (12.0-15.5) Hematocrit 33.8 % (36.0-47.0) Mean Corpuscular Volume 83 fL (79-100) Mean Corpuscular Hemoglobin 28 pg (25-35) Mean Corpuscular Hemoglobin Concent 33 g/dL (31-37) Red Cell Distribution Width 14.4 % (11.5-14.5) Platelet Count 321 x10^3/uL (140-400) Neutrophils (%) (Auto) 91 % (31-73) Lymphocytes (%) (Auto) 4 % (24-48) Monocytes (%) (Auto) 5 % (0-9) Eosinophils (%) (Auto) 0 % (0-3) Basophils (%) (Auto) 0 % (0-3) Neutrophils # (Auto) 12.3 x10^3/uL (1.8-7.7) Lymphocytes # (Auto) 0.5 x10^3/uL (1.0-4.8) Monocytes # (Auto) 0.6 x10^3/uL (0.0-1.1) Eosinophils # (Auto) 0.0 x10^3/uL (0.0-0.7) Basophils # (Auto) 0.0 x10^3/uL (0.0-0.2) Sodium Level 134 mmol/L (136-145) Potassium Level 3.6 mmol/L (3.5-5.1) Chloride Level 98 mmol/L (98-107) Carbon Dioxide Level 31 mmol/L (21-32) Anion Gap 5 (6-14) Blood Urea Nitrogen 24 mg/dL (7-20) Creatinine 1.0 mg/dL (0.6-1.0) Estimated GFR (Cockcroft-Gault) 76.3 BUN/Creatinine Ratio 24 (6-20) Glucose Level 355 mg/dL (70-99) Calcium Level 8.6 mg/dL (8.5-10.1) Total Bilirubin 0.3 mg/dL (0.2-1.0) Aspartate Amino Transf (AST/SGOT) 152 U/L (15-37) Alanine Aminotransferase (ALT/SGPT) 87 U/L (14-59) Alkaline Phosphatase 110 U/L (46-116) Total Protein 7.2 g/dL (6.4-8.2) Albumin 1.6 g/dL (3.4-5.0) Albumin/Globulin Ratio 0.3 (1.0-1.7) Test 10/02/20 08:00 O2 Saturation 94 % (92-99) Arterial Blood pH 7.44 (7.35-7.45) Arterial Blood pCO2 at Patient Temp 36 mmHg (35-46) Arterial Blood pO2 at Patient Temp 66 mmHg (85-108) Arterial Blood HCO3 24 mmol/L (21-28) Arterial Blood Base Excess 0 mmol/L (-3-3) FiO2 100% vent Assessment and Plan Assessmemt and Plan Problems Medical Problems: (1) COVID-19 Status: Acute (2) Hypoxia Status: Acute Comment Review of Relevant I have reviewed the following items adryan (where applicable) has been applied. Medications: Current Medications Medications (Trade) Dose Ordered Sig/Vidal Route PRN Reason Start Time Stop Time Status Last Admin Dose Admin Remdesivir 100 mg/ Sodium Chloride 230 ml @ 460 mls/hr Q24H IV 10/01/20 15:00 10/04/20 15:29 10/01/20 15:40 Sodium Chloride 1,000 ml @ 100 mls/hr Q10H IV 10/01/20 10:15 10/02/20 06:03 Insulin Human Lispro (HumaLOG) 0-7 UNITS Q6HRS SQ 10/01/20 12:00 10/02/20 06:00 DC 10/02/20 00:00 Acetaminophen (Tylenol) 650 mg PRN Q6HRS PRN PEG MILD PAIN / TEMP > 100.3'F 10/01/20 11:30 10/01/20 12:29 Multivitamins/ Minerals Therapeutic (Centrum Multivit-Mineral Liq) 5 ml DAILY PEG 10/02/20 09:00 10/02/20 08:13 Insulin Glargine (Lantus Syringe) 20 unit QHS SQ 10/01/20 21:00 10/02/20 06:00 DC 10/01/20 21:39 Insulin Glargine (Lantus Syringe) 20 unit BID SQ 10/02/20 09:00 10/02/20 08:46 Insulin Human Lispro (HumaLOG) 3 units Q6HRS SQ 10/02/20 06:00 10/02/20 06:08 Insulin Human Lispro (HumaLOG) 0-9 UNITS Q6HRS SQ 10/02/20 06:00 10/02/20 06:08 Justifications for Admission Other Justification NINOSKA CARMONA MD Oct 02, 2020 09:59
--- NOTE | 2020-10-02 10:30 | PDOC ---
PULMONARY PROGRESS NOTES DATE: 10/02/20 TIME: 10:28 Subjective intubated 10/01/20 remains on vent support 100% and PEEP of 8 low grade fever overnight Vitals Vital Signs Date Time Temp Pulse Resp B/P (MAP) Pulse Ox O2 Delivery O2 Flow Rate FiO2 10/02/20 10:00 91 20 110/67 (81) 94 Ventilator 10/02/20 08:00 99.2 99.2 10/01/20 10:25 98.0 Comments Patient seen during pandemic RRR no distress intubated No obvious rash or edema Lungs: Other (Intubated) Labs Laboratory Tests Test 09/30/20 12:21 09/30/20 16:50 09/30/20 20:28 10/01/20 07:30 Glucose (Fingerstick) 404 mg/dL (70-99) 326 mg/dL (70-99) 307 mg/dL (70-99) O2 Saturation 93 % (92-99) Arterial Blood pH 7.53 (7.35-7.45) Arterial Blood pCO2 at Patient Temp 32 mmHg (35-46) Arterial Blood pO2 at Patient Temp 55 mmHg (85-108) Arterial Blood HCO3 26 mmol/L (21-28) Arterial Blood Base Excess 4 mmol/L (-3-3) FiO2 100% vapotherm Test 10/01/20 10:37 10/01/20 11:55 10/01/20 12:18 10/01/20 14:30 Glucose (Fingerstick) 309 mg/dL (70-99) 301 mg/dL (70-99) O2 Saturation 97 % (92-99) Arterial Blood pH 7.43 (7.35-7.45) Arterial Blood pCO2 at Patient Temp 43 mmHg (35-46) Arterial Blood pO2 at Patient Temp 93 mmHg (85-108) Arterial Blood HCO3 28 mmol/L (21-28) Arterial Blood Base Excess 3 mmol/L (-3-3) Oxyhemoglobin 96.5 % Methemoglobin 0.4 % (0.0-1.9) Carbon Monoxide, Quantitative 0.3 % (0.0-1.9) FiO2 100 Lactate Dehydrogenase 554 U/L (81-234) Troponin I Quantitative 0.434 ng/mL (0.000-0.055) Thyroid Stimulating Hormone (TSH) 0.140 uIU/mL (0.358-3.74) Test 10/01/20 18:05 10/01/20 23:40 10/02/20 05:30 10/02/20 05:33 Glucose (Fingerstick) 319 mg/dL (70-99) 344 mg/dL (70-99) 370 mg/dL (70-99) White Blood Count 13.4 x10^3/uL (4.0-11.0) Red Blood Count 4.07 x10^6/uL (3.50-5.40) Hemoglobin 11.2 g/dL (12.0-15.5) Hematocrit 33.8 % (36.0-47.0) Mean Corpuscular Volume 83 fL (79-100) Mean Corpuscular Hemoglobin 28 pg (25-35) Mean Corpuscular Hemoglobin Concent 33 g/dL (31-37) Red Cell Distribution Width 14.4 % (11.5-14.5) Platelet Count 321 x10^3/uL (140-400) Neutrophils (%) (Auto) 91 % (31-73) Lymphocytes (%) (Auto) 4 % (24-48) Monocytes (%) (Auto) 5 % (0-9) Eosinophils (%) (Auto) 0 % (0-3) Basophils (%) (Auto) 0 % (0-3) Neutrophils # (Auto) 12.3 x10^3/uL (1.8-7.7) Lymphocytes # (Auto) 0.5 x10^3/uL (1.0-4.8) Monocytes # (Auto) 0.6 x10^3/uL (0.0-1.1) Eosinophils # (Auto) 0.0 x10^3/uL (0.0-0.7) Basophils # (Auto) 0.0 x10^3/uL (0.0-0.2) Sodium Level 134 mmol/L (136-145) Potassium Level 3.6 mmol/L (3.5-5.1) Chloride Level 98 mmol/L (98-107) Carbon Dioxide Level 31 mmol/L (21-32) Anion Gap 5 (6-14) Blood Urea Nitrogen 24 mg/dL (7-20) Creatinine 1.0 mg/dL (0.6-1.0) Estimated GFR (Cockcroft-Gault) 76.3 BUN/Creatinine Ratio 24 (6-20) Glucose Level 355 mg/dL (70-99) Calcium Level 8.6 mg/dL (8.5-10.1) Total Bilirubin 0.3 mg/dL (0.2-1.0) Aspartate Amino Transf (AST/SGOT) 152 U/L (15-37) Alanine Aminotransferase (ALT/SGPT) 87 U/L (14-59) Alkaline Phosphatase 110 U/L (46-116) Total Protein 7.2 g/dL (6.4-8.2) Albumin 1.6 g/dL (3.4-5.0) Albumin/Globulin Ratio 0.3 (1.0-1.7) Test 10/02/20 08:00 O2 Saturation 94 % (92-99) Arterial Blood pH 7.44 (7.35-7.45) Arterial Blood pCO2 at Patient Temp 36 mmHg (35-46) Arterial Blood pO2 at Patient Temp 66 mmHg (85-108) Arterial Blood HCO3 24 mmol/L (21-28) Arterial Blood Base Excess 0 mmol/L (-3-3) FiO2 100% vent Laboratory Tests Test 10/01/20 10:37 10/01/20 11:55 10/01/20 12:18 10/01/20 14:30 Glucose (Fingerstick) 309 mg/dL (70-99) 301 mg/dL (70-99) O2 Saturation 97 % (92-99) Arterial Blood pH 7.43 (7.35-7.45) Arterial Blood pCO2 at Patient Temp 43 mmHg (35-46) Arterial Blood pO2 at Patient Temp 93 mmHg (85-108) Arterial Blood HCO3 28 mmol/L (21-28) Arterial Blood Base Excess 3 mmol/L (-3-3) Oxyhemoglobin 96.5 % Methemoglobin 0.4 % (0.0-1.9) Carbon Monoxide, Quantitative 0.3 % (0.0-1.9) FiO2 100 Lactate Dehydrogenase 554 U/L (81-234) Troponin I Quantitative 0.434 ng/mL (0.000-0.055) Thyroid Stimulating Hormone (TSH) 0.140 uIU/mL (0.358-3.74) Test 10/01/20 18:05 10/01/20 23:40 10/02/20 05:30 10/02/20 05:33 Glucose (Fingerstick) 319 mg/dL (70-99) 344 mg/dL (70-99) 370 mg/dL (70-99) White Blood Count 13.4 x10^3/uL (4.0-11.0) Red Blood Count 4.07 x10^6/uL (3.50-5.40) Hemoglobin 11.2 g/dL (12.0-15.5) Hematocrit 33.8 % (36.0-47.0) Mean Corpuscular Volume 83 fL (79-100) Mean Corpuscular Hemoglobin 28 pg (25-35) Mean Corpuscular Hemoglobin Concent 33 g/dL (31-37) Red Cell Distribution Width 14.4 % (11.5-14.5) Platelet Count 321 x10^3/uL (140-400) Neutrophils (%) (Auto) 91 % (31-73) Lymphocytes (%) (Auto) 4 % (24-48) Monocytes (%) (Auto) 5 % (0-9) Eosinophils (%) (Auto) 0 % (0-3) Basophils (%) (Auto) 0 % (0-3) Neutrophils # (Auto) 12.3 x10^3/uL (1.8-7.7) Lymphocytes # (Auto) 0.5 x10^3/uL (1.0-4.8) Monocytes # (Auto) 0.6 x10^3/uL (0.0-1.1) Eosinophils # (Auto) 0.0 x10^3/uL (0.0-0.7) Basophils # (Auto) 0.0 x10^3/uL (0.0-0.2) Sodium Level 134 mmol/L (136-145) Potassium Level 3.6 mmol/L (3.5-5.1) Chloride Level 98 mmol/L (98-107) Carbon Dioxide Level 31 mmol/L (21-32) Anion Gap 5 (6-14) Blood Urea Nitrogen 24 mg/dL (7-20) Creatinine 1.0 mg/dL (0.6-1.0) Estimated GFR (Cockcroft-Gault) 76.3 BUN/Creatinine Ratio 24 (6-20) Glucose Level 355 mg/dL (70-99) Calcium Level 8.6 mg/dL (8.5-10.1) Total Bilirubin 0.3 mg/dL (0.2-1.0) Aspartate Amino Transf (AST/SGOT) 152 U/L (15-37) Alanine Aminotransferase (ALT/SGPT) 87 U/L (14-59) Alkaline Phosphatase 110 U/L (46-116) Total Protein 7.2 g/dL (6.4-8.2) Albumin 1.6 g/dL (3.4-5.0) Albumin/Globulin Ratio 0.3 (1.0-1.7) Test 10/02/20 08:00 O2 Saturation 94 % (92-99) Arterial Blood pH 7.44 (7.35-7.45) Arterial Blood pCO2 at Patient Temp 36 mmHg (35-46) Arterial Blood pO2 at Patient Temp 66 mmHg (85-108) Arterial Blood HCO3 24 mmol/L (21-28) Arterial Blood Base Excess 0 mmol/L (-3-3) FiO2 100% vent Medications Active Scripts Medications Dose Route/Sig Max Daily Dose Days Date Category Fluoxetine Hcl 60 Mg Tablet 1 Tab PO DAILY 09/30/20 Reported Losartan Potassium 50 Mg Tablet 1 Tab PO DAILY 09/30/20 Reported Hydrochlorothiazide 25 Mg Tablet 1 Tab PO DAILY 09/30/20 Reported Labetalol Hcl 200 Mg Tablet 1 Tab PO BID 12/28/14 Rx Lasix (Furosemide) 20 Mg Tablet 1 Tab PO DAILY 12/28/14 Rx Percocet 5-325 Mg Tablet (Oxycodone/Acetaminophen) 1 Each Tablet 1 Tab PO Q4HRS W/A 12/28/14 Rx Ibuprofen 800 Mg Tablet 800 Mg PO Q6H PRN 12/28/14 Rx Methyldopa 500 Mg Tablet 500 Mg PO QID 12/23/14 Reported Zoloft (Sertraline Hcl) 25 Mg Tablet 25 Mg .ROUTE DAILY 12/23/14 Reported Glyburide 2.5 Mg Tablet 2.5 Mg PO QID 12/23/14 Reported Procardia (Nifedipine) 10 Mg Capsule 60 Mg PO DAILY 12/23/14 Reported Tylenol (Acetaminophen) 325 Mg Tablet 325 Mg PO 08/25/13 Reported Prena1 Plus Combo Pack ( No.39/Iron/Fa #6/Dha) 1 Each Combo..pkg 1 Each PO 08/25/13 Reported Impression . IMPRESSION: 1. Acute hypoxic respiratory failure secondary to COVID-19 viral pneumonia/ARDS/acute lung injury.----- worsening,now intubated 2. Underlying morbid obesity with a BMI of 58, is another main contributing factor to the severity of hypoxia. 3. No significant tobacco history. 4. Abnormal chest x-ray with bilateral interstitial infiltrates consistent with viral pneumonia. 5. Hypokalemia. 6. High-grade fever secondary to COVID-19 viral infection. Plan . Updated 10/02/2020 Continue current vent support 20/500/100/8 Chest x-ray and ABG, make changes as needed-- no changes today Continue IV steroids for full 10-day course, started on 09/30/2020 Continue remdesivir for full course Continue empiric antibiotics, currently on Rocephin and doxycycline Continue tube feeding recommendations DVT/GI prophylaxis:lovenox Discussed with RN and RT D/W Critical care time 30 minutes NILO CURTIS MD Oct 02, 2020 10:30
[2020-10-02] MEDS: glyBURIDE 1.25 MG TABLET PO SCH ×3 (12:31→21:39)
[2020-10-02] MEDS ORDERED: INSULIN LISPRO 300 UNITS/3 ML VIAL. SQ ONE ×3 (13:00→21:30)
[2020-10-02] MEDS: cefTRIAXone IV Push 1 GM VIAL. IVP SCH (15:55)
[2020-10-02] MEDS: REMDESIVIR 100mg in NORMAL SALINE 250ML X 4 DAYS IV SCH (15:56)
[2020-10-02] MEDS: ACETAMINOPHEN 650 MG/20.3 ML SOLUTION. PEG PRN (20:24)
--- NOTE | 2020-10-02 21:10 | NUR ---
Patient FSBS at 2205 resulted 304; paged Dr Bass at 2100. Dr Bass returned page, notified of FSBS result. Orders received to give Humalog Insulin 11UNITS subcutaneous now, change FSBS and Insulin sliding scale to Q4HRS, and increase sliding scale insulin to an additona 2UNITS/Level for eating and bedtime. See labs/orders.
[2020-10-02] MEDS: INSULIN GLARGINE SYRINGE. SQ SCH (21:27)
[2020-10-03] VITALS (24 sets, daily range): BP systolic 114–144; BP diastolic 71–93
[2020-10-03] MEDS: INSULIN LISPRO 300 UNITS/3 ML VIAL. SQ SCH ×10 (00:17→20:39)
[2020-10-03] MEDS: MIDAZOLAM 100mg/100ml NS BAG 100 ML IV PRN ×2 (01:48→12:34)
[2020-10-03] MEDS: PROPOFOL 100 ML IV PRN ×6 (02:34→19:52)
--- NOTE | 2020-10-03 06:17 | RAD ---
AP chest x-ray HISTORY: Respiratory failure. COMPARISON: Chest x-ray October 03, 2011 FINDINGS: Endotracheal tube tip 4 cm above the masood. Nasogastric tube extends to the abdomen. Mild cardiomegaly stable. Right PICC line tip is obscured by overlying soft tissue density extends at leas t to the SVC. No pneumothorax. Pulmonary opacities with areas of dense consolidation at the lateral r ight upper lobe and at the bilateral lower lobes grossly stable. There appears be some improved aerat ion with decreased density of the left perihilar upper lobe and lingula. IMPRESSION: Lines and tubes as described above. Extensive pulmonary infiltrates again demonstrated wi th some improved aeration at the left perihilar upper lobe and lingula as described above. Electronically signed by: Carlos Swartz MD (10/03/2020 6:14 AM) [facility]
--- NOTE | 2020-10-03 06:59 | PDOC ---
PULMONARY PROGRESS NOTES DATE: 10/03/20 TIME: 06:57 Subjective intubated 10/01/20 remains on vent support 100% and PEEP of 8 Fever overnight no overnight concerns from nursing Vitals Vital Signs Date Time Temp Pulse Resp B/P (MAP) Pulse Ox O2 Delivery O2 Flow Rate FiO2 10/03/20 06:47 87 20 122/79 (93) 98 Ventilator 10/03/20 04:00 100.1 100.1 Comments Patient seen during pandemic RRR no distress intubated No obvious rash or edema Lungs: Other (Intubated) Labs Laboratory Tests Test 10/01/20 07:30 10/01/20 10:37 10/01/20 11:55 10/01/20 12:18 O2 Saturation 93 % (92-99) 97 % (92-99) Arterial Blood pH 7.53 (7.35-7.45) 7.43 (7.35-7.45) Arterial Blood pCO2 at Patient Temp 32 mmHg (35-46) 43 mmHg (35-46) Arterial Blood pO2 at Patient Temp 55 mmHg (85-108) 93 mmHg (85-108) Arterial Blood HCO3 26 mmol/L (21-28) 28 mmol/L (21-28) Arterial Blood Base Excess 4 mmol/L (-3-3) 3 mmol/L (-3-3) FiO2 100% vapotherm 100 Glucose (Fingerstick) 309 mg/dL (70-99) 301 mg/dL (70-99) Oxyhemoglobin 96.5 % Methemoglobin 0.4 % (0.0-1.9) Carbon Monoxide, Quantitative 0.3 % (0.0-1.9) Test 10/01/20 14:30 10/01/20 18:05 10/01/20 23:40 10/02/20 05:30 Lactate Dehydrogenase 554 U/L (81-234) Troponin I Quantitative 0.434 ng/mL (0.000-0.055) Thyroid Stimulating Hormone (TSH) 0.140 uIU/mL (0.358-3.74) Glucose (Fingerstick) 319 mg/dL (70-99) 344 mg/dL (70-99) White Blood Count 13.4 x10^3/uL (4.0-11.0) Red Blood Count 4.07 x10^6/uL (3.50-5.40) Hemoglobin 11.2 g/dL (12.0-15.5) Hematocrit 33.8 % (36.0-47.0) Mean Corpuscular Volume 83 fL (79-100) Mean Corpuscular Hemoglobin 28 pg (25-35) Mean Corpuscular Hemoglobin Concent 33 g/dL (31-37) Red Cell Distribution Width 14.4 % (11.5-14.5) Platelet Count 321 x10^3/uL (140-400) Neutrophils (%) (Auto) 91 % (31-73) Lymphocytes (%) (Auto) 4 % (24-48) Monocytes (%) (Auto) 5 % (0-9) Eosinophils (%) (Auto) 0 % (0-3) Basophils (%) (Auto) 0 % (0-3) Neutrophils # (Auto) 12.3 x10^3/uL (1.8-7.7) Lymphocytes # (Auto) 0.5 x10^3/uL (1.0-4.8) Monocytes # (Auto) 0.6 x10^3/uL (0.0-1.1) Eosinophils # (Auto) 0.0 x10^3/uL (0.0-0.7) Basophils # (Auto) 0.0 x10^3/uL (0.0-0.2) Sodium Level 134 mmol/L (136-145) Potassium Level 3.6 mmol/L (3.5-5.1) Chloride Level 98 mmol/L (98-107) Carbon Dioxide Level 31 mmol/L (21-32) Anion Gap 5 (6-14) Blood Urea Nitrogen 24 mg/dL (7-20) Creatinine 1.0 mg/dL (0.6-1.0) Estimated GFR (Cockcroft-Gault) 76.3 BUN/Creatinine Ratio 24 (6-20) Glucose Level 355 mg/dL (70-99) Calcium Level 8.6 mg/dL (8.5-10.1) Total Bilirubin 0.3 mg/dL (0.2-1.0) Aspartate Amino Transf (AST/SGOT) 152 U/L (15-37) Alanine Aminotransferase (ALT/SGPT) 87 U/L (14-59) Alkaline Phosphatase 110 U/L (46-116) Total Protein 7.2 g/dL (6.4-8.2) Albumin 1.6 g/dL (3.4-5.0) Albumin/Globulin Ratio 0.3 (1.0-1.7) Test 10/02/20 05:33 10/02/20 08:00 10/02/20 11:28 10/02/20 15:20 Glucose (Fingerstick) 370 mg/dL (70-99) 368 mg/dL (70-99) O2 Saturation 94 % (92-99) Arterial Blood pH 7.44 (7.35-7.45) Arterial Blood pCO2 at Patient Temp 36 mmHg (35-46) Arterial Blood pO2 at Patient Temp 66 mmHg (85-108) Arterial Blood HCO3 24 mmol/L (21-28) Arterial Blood Base Excess 0 mmol/L (-3-3) FiO2 100% vent Prothrombin Time 15.0 SEC (11.7-14.0) Prothromb Time International Ratio 1.2 (0.8-1.1) Activated Partial Thromboplast Time 31 SEC (24-38) Test 10/02/20 17:57 10/02/20 20:05 10/03/20 00:13 10/03/20 06:00 Glucose (Fingerstick) 356 mg/dL (70-99) 304 mg/dL (70-99) 243 mg/dL (70-99) 199 mg/dL (70-99) Laboratory Tests Test 10/02/20 08:00 10/02/20 11:28 10/02/20 15:20 10/02/20 17:57 O2 Saturation 94 % (92-99) Arterial Blood pH 7.44 (7.35-7.45) Arterial Blood pCO2 at Patient Temp 36 mmHg (35-46) Arterial Blood pO2 at Patient Temp 66 mmHg (85-108) Arterial Blood HCO3 24 mmol/L (21-28) Arterial Blood Base Excess 0 mmol/L (-3-3) FiO2 100% vent Glucose (Fingerstick) 368 mg/dL (70-99) 356 mg/dL (70-99) Prothrombin Time 15.0 SEC (11.7-14.0) Prothromb Time International Ratio 1.2 (0.8-1.1) Activated Partial Thromboplast Time 31 SEC (24-38) Test 10/02/20 20:05 10/03/20 00:13 10/03/20 06:00 Glucose (Fingerstick) 304 mg/dL (70-99) 243 mg/dL (70-99) 199 mg/dL (70-99) Medications Active Scripts Medications Dose Route/Sig Max Daily Dose Days Date Category Fluoxetine Hcl 60 Mg Tablet 1 Tab PO DAILY 09/30/20 Reported Losartan Potassium 50 Mg Tablet 1 Tab PO DAILY 09/30/20 Reported Hydrochlorothiazide 25 Mg Tablet 1 Tab PO DAILY 09/30/20 Reported Labetalol Hcl 200 Mg Tablet 1 Tab PO BID 12/28/14 Rx Lasix (Furosemide) 20 Mg Tablet 1 Tab PO DAILY 12/28/14 Rx Percocet 5-325 Mg Tablet (Oxycodone/Acetaminophen) 1 Each Tablet 1 Tab PO Q4HRS W/A 12/28/14 Rx Ibuprofen 800 Mg Tablet 800 Mg PO Q6H PRN 12/28/14 Rx Methyldopa 500 Mg Tablet 500 Mg PO QID 12/23/14 Reported Zoloft (Sertraline Hcl) 25 Mg Tablet 25 Mg .ROUTE DAILY 12/23/14 Reported Glyburide 2.5 Mg Tablet 2.5 Mg PO QID 12/23/14 Reported Procardia (Nifedipine) 10 Mg Capsule 60 Mg PO DAILY 12/23/14 Reported Tylenol (Acetaminophen) 325 Mg Tablet 325 Mg PO 08/25/13 Reported Prena1 Plus Combo Pack ( No.39/Iron/Fa #6/Dha) 1 Each Combo..pkg 1 Each PO 08/25/13 Reported Comments Chest x-ray reviewed dated 10/03/2020. Extensive bilateral infiltrates. Slightly decreased in the right lower lobe. Impression . IMPRESSION: 1. Acute hypoxic respiratory failure secondary to COVID-19 viral pneumonia/ARDS/acute lung injury.----- worsening,now intubated 10/01/20 2. Underlying morbid obesity with a BMI of 58, is another main contributing factor to the severity of hypoxia. 3. No significant tobacco history. 4. Abnormal chest x-ray with bilateral interstitial infiltrates consistent with viral pneumonia. 5. Hypokalemia. 6. High-grade fever secondary to COVID-19 viral infection. Plan . Updated 10/03/2020 Continue current vent support 20/500/100/8 Chest x-ray and ABG, make changes as needed Symptomatic treatment of fever Continue IV steroids for full 10-day course, started on 09/30/2020 Continue remdesivir for full course Continue empiric antibiotics, currently on Rocephin and doxycycline Continue tube feeding recommendations DVT/GI prophylaxis:lovenox Discussed with RN and RT Critical care time 30 minutes NILO CURTIS MD Oct 03, 2020 06:59
[2020-10-03] MEDS: ACETAMINOPHEN 650 MG/20.3 ML SOLUTION. PEG PRN (07:37)
[2020-10-03] MEDS: MULTIVITAMINS,THERAPEUTIC 5 ML ORAL LIQUID. PEG SCH (07:37)
[2020-10-03] MEDS: ASPIRIN CHEWABLE 81 MG TABLET. PO SCH (07:37)
[2020-10-03] MEDS: FAMOTIDINE 20 MG/2 ML VIAL IVP SCH ×2 (07:38→20:31)
[2020-10-03] MEDS: DEXAMETHASONE SOD PHOS 4 MG/ML VIAL IVP SCH (07:38)
[2020-10-03] MEDS: IV NORMAL SALINE 1000ML BAG 1,000 ML IV SCH ×3 (07:39→20:39)
[2020-10-03 07:41] LABS: BASE EXCESS ABG 4 mmol/L (-3-3); HCO3 ABG 28 mmol/L (21-28); PCO2 ABG 42 mmHg (35-46); PO2 ABG 69 mmHg (85-108); SAT O2 ABG 94 % (92-99)
[2020-10-03] MEDS: DOXYCYCLINE HYCLATE 100 MG in IV DEXTROSE 5% 100ML 100 ML IV SCH ×2 (07:44→20:32)
[2020-10-03] MEDS: INSULIN GLARGINE SYRINGE. SQ SCH ×2 (08:40→20:31)
--- NOTE | 2020-10-03 08:42 | PDOC ---
[employer] PROGRESS NOTE Date of Service DOS: DATE: 10/03/20 TIME: 08:38 Chief Complaint Chief Complaint Covid 19 pneumonia/ ARDS Viral sepsis Acute hypoxic resp failure Super morbid obesity Extensive pulmonary opacities with areas of consolidation // multilobar pneumonia versus noncardiogenic pulmonary edema from ARDS. plan ADMIT ICU BED Consult pulmonary dvt prophylaxis Vapotherm 40 L 100% with additional 100% nonrebreather, plan intubation 8-16 IV STEROIDS COVID 19 PROTOCOL IV DOXYCYCLINE 100MG BID SERIAL CXR Critically ill History of Present Illness History of Present Illness 34 year old female past medical history hypertension diabetes presented with a chief complaint of shortness of breath. diagnosed with COVID-19 this past Thursday. in er c/o shortness of breath cough fever muscle aches x1 week. //not vaccinated against COVID-19. Patient states over the last 2 days shortness of breath is progressed to become worse. Patient states she cannot catch her breath therefore she called 911. Upon EMS arrival patient's oxygen saturation in the upper 80s on room air. On arrival in ER patient patient on 15 L nonrebreather NOW IN NEED OF INTUBATION FOR Covid 19 pneumonia // Viral sepsis Acute hypoxic resp failure Super morbid obesity CXR C/W Extensive pulmonary opacities with areas of consolidation // multilobar pneumonia versus noncardiogenic pulmonary edema from ARDS. 10/02/2020: Afe low-grade fever in ICU yesterday (99.6 F). Intubated in ICU yesterday, on vent with FiO2 100%, PEEP 8. She was initiated on remdesivir. We will continue treatment with IV steroids and antibiotics. Still hyperglycemic today; will adjust insulin. Appreciate pulmonology recommendations and management patient. Critical care time 30 minutes spent reviewing charts, reviewing labs, examination, discussion with RN. 10/03/2020: Febrile overnight with T-max 101.1 F. On vent with FiO2 100%, PEEP 8. Chest x-ray today showed extensive pulmonary infiltrates again demonstrated with some improved aeration at the left perihilar upper lobe and lingula. Morning labs pending at this time. Continue IV antibiotics. Continue IV Decadron to complete 10-day treatment. Continue supportive care. Critical care time 30 minutes spent reviewing charts, reviewing labs, reviewing imaging, and discussion with RN. Vitals/I&O Vitals/I&O: Vital Signs Date Time Temp Pulse Resp B/P (MAP) Pulse Ox O2 Delivery O2 Flow Rate FiO2 10/03/20 07:27 98 Ventilator 10/03/20 06:47 87 20 122/79 (93) 10/03/20 06:26 98.0 10/03/20 04:00 100.1 100.1 I & O 10/02/20 10/02/20 10/03/20 14:59 22:59 06:59 Intake Total 300 ml 2615 ml 2589 ml Output Total 625 ml 685 ml 430 ml Balance -325 ml 1930 ml 2159 ml Physical Exam General: Other (Intubated and sedated) Heart: Regular rate Lungs: Other (Intubated) Abdomen: Soft, No tenderness Extremities: No clubbing, No cyanosis Skin: No rashes, No breakdown Labs Labs: Laboratory Tests Test 10/02/20 11:28 10/02/20 15:20 10/02/20 17:57 10/02/20 20:05 Glucose (Fingerstick) 368 mg/dL (70-99) 356 mg/dL (70-99) 304 mg/dL (70-99) Prothrombin Time 15.0 SEC (11.7-14.0) Prothromb Time International Ratio 1.2 (0.8-1.1) Activated Partial Thromboplast Time 31 SEC (24-38) Test 10/03/20 00:13 10/03/20 06:00 10/03/20 07:56 Glucose (Fingerstick) 243 mg/dL (70-99) 199 mg/dL (70-99) 206 mg/dL (70-99) Assessment and Plan Assessmemt and Plan Problems Medical Problems: (1) COVID-19 Status: Acute (2) Hypoxia Status: Acute Comment Review of Relevant I have reviewed the following items adryan (where applicable) has been applied. Medications: Current Medications Medications (Trade) Dose Ordered Sig/Vidal Route PRN Reason Start Time Stop Time Status Last Admin Dose Admin Multivitamins/ Minerals Therapeutic (Centrum Multivit-Mineral Liq) 5 ml DAILY PEG 10/02/20 09:00 10/03/20 07:37 Insulin Glargine (Lantus Syringe) 20 unit BID SQ 10/02/20 09:00 10/02/20 10:17 DC 10/02/20 08:46 Dexamethasone Sodium Phosphate (Decadron) 6 mg DAILY IVP 10/03/20 09:00 10/03/20 07:38 Glyburide (Diabeta) 2.5 mg QIDACHS PO 10/02/20 11:30 10/02/20 21:39 Insulin Glargine (Lantus Syringe) 24 unit BID SQ 10/02/20 21:00 10/02/20 21:27 Insulin Human Lispro (HumaLOG) 20 units 1X ONCE SQ 10/02/20 13:00 10/02/20 13:01 DC 10/02/20 12:44 Insulin Human Lispro (HumaLOG) 15 units 1X ONCE SQ 10/02/20 19:00 10/02/20 19:01 DC 10/02/20 18:36 Insulin Human Lispro (HumaLOG) 0-9 UNITS Q6HRS SQ 10/03/20 00:00 10/03/20 06:51 DC 10/03/20 06:03 Insulin Human Lispro (HumaLOG) 11 units 1X ONCE SQ 10/02/20 21:30 10/02/20 21:31 DC 10/02/20 21:26 Insulin Human Lispro (HumaLOG) 0-9 UNITS Q4HRS SQ 10/03/20 08:00 10/03/20 08:15 Justifications for Admission Other Justification NINOSKA CARMONA MD Oct 03, 2020 08:42
[2020-10-03] MEDS: ELECTROLYTE (ICU) PROTOCOL. MC SCH (09:00)
[2020-10-03 09:04] LABS: FIO2 ABG 100/VENT
[2020-10-03 09:32] LABS: BASO # 0.1 x10^3/uL (0.0-0.2); BASO % 0 % (0-3); EOS % 0 % (0-3); HEMATOCRIT 33.7 % (36.0-47.0); HEMOGLOBIN 11.3 g/dL (12.0-15.5); LYMPH # 0.7 x10^3/uL (1.0-4.8); LYMPH % 5 % (24-48); MEAN CORPUSCULAR HEMOGLOBIN 28 pg (25-35); MEAN CORPUSCULAR HGB CONC 34 g/dL (31-37); MEAN CORPUSCULAR VOLUME 84 fL (79-100); MONO # 0.9 x10^3/uL (0.0-1.1); MONO % 7 % (0-9); NEUT # 12.3 x10^3/uL (1.8-7.7); NEUT % 88 % (31-73); PLATELET COUNT 339 x10^3/uL (140-400); RED BLOOD COUNT 4.04 x10^6/uL (3.50-5.40); RED CELL DISTRIBUTION WIDTH 14.4 % (11.5-14.5)
[2020-10-03 09:46] LABS: C-REACTIVE PROTEIN 114.8 mg/L (0-3.3); CALCIUM 8.2 mg/dL (8.5-10.1); CREATININE 0.9 mg/dL (0.6-1.0); GFR 86.2; POTASSIUM 3.5 mmol/L (3.5-5.1)
[2020-10-03] MEDS ORDERED: POTASSIUM CHLORIDE 20MEQ 100 ML IV ONE (12:00)
[2020-10-03] MEDS: cefTRIAXone IV Push 1 GM VIAL. IVP SCH (13:09)
[2020-10-03] MEDS: glyBURIDE 1.25 MG TABLET PO SCH ×4 (13:09→20:31)
[2020-10-03] MEDS: REMDESIVIR 100mg in NORMAL SALINE 250ML X 4 DAYS IV SCH ×2 (15:00→16:53)
--- NOTE | 2020-10-03 15:19 | NUR ---
SS following up with discharge planning. SS reviewed pt chart and discussed with pt RN. Pt is currently on the vent at 100%. COVID19 positive. Pt on IV Remdesivir, IV Decadron, IV Rocephin, and IV Doxycycline. Pt on Fentanyl and Versed. Not stable. SS will continue to follow for discharge planning.
[2020-10-04] VITALS (23 sets, daily range): BP systolic 113–136; BP diastolic 70–92
[2020-10-04] MEDS: PROPOFOL 100 ML IV PRN ×8 (00:01→23:08)
[2020-10-04] MEDS: MIDAZOLAM 100mg/100ml NS BAG 100 ML IV PRN ×3 (00:02→19:44)
[2020-10-04] MEDS: INSULIN LISPRO 300 UNITS/3 ML VIAL. SQ SCH ×11 (00:07→23:04)
[2020-10-04 05:38] LABS: BASO % 0 % (0-3); EOS % 0 % (0-3); HEMATOCRIT 34.7 % (36.0-47.0); HEMOGLOBIN 11.3 g/dL (12.0-15.5); LYMPH # 0.7 x10^3/uL (1.0-4.8); LYMPH % 5 % (24-48); MEAN CORPUSCULAR HEMOGLOBIN 27 pg (25-35); MEAN CORPUSCULAR HGB CONC 33 g/dL (31-37); MEAN CORPUSCULAR VOLUME 84 fL (79-100); MONO # 0.9 x10^3/uL (0.0-1.1); MONO % 6 % (0-9); NEUT % 90 % (31-73); PLATELET COUNT 329 x10^3/uL (140-400); RED BLOOD COUNT 4.14 x10^6/uL (3.50-5.40); RED CELL DISTRIBUTION WIDTH 14.3 % (11.5-14.5); WHITE BLOOD COUNT 15.6 x10^3/uL (4.0-11.0)
[2020-10-04 05:59] LABS: CALCIUM 8.3 mg/dL (8.5-10.1); CREATININE 0.8 mg/dL (0.6-1.0); GFR 98.8; POTASSIUM 3.5 mmol/L (3.5-5.1)
[2020-10-04] MEDS: ASPIRIN CHEWABLE 81 MG TABLET. PO SCH (07:55)
[2020-10-04] MEDS: MULTIVITAMINS,THERAPEUTIC 5 ML ORAL LIQUID. PEG SCH (07:56)
[2020-10-04] MEDS: FAMOTIDINE 20 MG/2 ML VIAL IVP SCH ×2 (07:56→21:27)
[2020-10-04] MEDS: glyBURIDE 1.25 MG TABLET PO SCH ×4 (07:56→21:31)
[2020-10-04] MEDS ORDERED: POTASSIUM BICARB 20 MEQ EFFERVESCENT TABLET. PEG ONE (08:00)
[2020-10-04] MEDS: ELECTROLYTE (ICU) PROTOCOL. MC SCH (08:01)
[2020-10-04] MEDS: DEXAMETHASONE SOD PHOS 4 MG/ML VIAL IVP SCH (08:02)
[2020-10-04] MEDS: IV NORMAL SALINE 1000ML BAG 1,000 ML IV SCH ×2 (08:11→21:18)
[2020-10-04] MEDS: INSULIN GLARGINE SYRINGE. SQ SCH ×3 (08:20→21:28)
--- NOTE | 2020-10-04 08:23 | PDOC ---
[employer] PROGRESS NOTE Date of Service DOS: DATE: 10/04/20 TIME: 08:17 Chief Complaint Chief Complaint Covid 19 pneumonia/ ARDS Viral sepsis Acute hypoxic resp failure Super morbid obesity Extensive pulmonary opacities with areas of consolidation // multilobar pneumonia versus noncardiogenic pulmonary edema from ARDS. plan ADMIT ICU BED Consult pulmonary dvt prophylaxis Vapotherm 40 L 100% with additional 100% nonrebreather, plan intubation 8-16 IV STEROIDS COVID 19 PROTOCOL IV DOXYCYCLINE 100MG BID SERIAL CXR Critically ill History of Present Illness History of Present Illness 34 year old female past medical history hypertension diabetes presented with a chief complaint of shortness of breath. diagnosed with COVID-19 this past Thursday. in er c/o shortness of breath cough fever muscle aches x1 week. //not vaccinated against COVID-19. Patient states over the last 2 days shortness of breath is progressed to become worse. Patient states she cannot catch her breath therefore she called 911. Upon EMS arrival patient's oxygen saturation in the upper 80s on room air. On arrival in ER patient patient on 15 L nonrebreather NOW IN NEED OF INTUBATION FOR Covid 19 pneumonia // Viral sepsis Acute hypoxic resp failure Super morbid obesity CXR C/W Extensive pulmonary opacities with areas of consolidation // multilobar pneumonia versus noncardiogenic pulmonary edema from ARDS. 10/02/2020: Afe low-grade fever in ICU yesterday (99.6 F). Intubated in ICU yesterday, on vent with FiO2 100%, PEEP 8. She was initiated on remdesivir. We will continue treatment with IV steroids and antibiotics. Still hyperglycemic today; will adjust insulin. Appreciate pulmonology recommendations and management patient. Critical care time 30 minutes spent reviewing charts, reviewing labs, examination, discussion with RN. 10/03/2020: Febrile overnight with T-max 101.1 F. On vent with FiO2 100%, PEEP 8. Chest x-ray today showed extensive pulmonary infiltrates again demonstrated with some improved aeration at the left perihilar upper lobe and lingula. Morning labs pending at this time. Continue IV antibiotics. Continue IV Decadron to complete 10-day treatment. Continue supportive care. Critical care time 30 minutes spent reviewing charts, reviewing labs, reviewing imaging, and discussion with RN. 10/04/2020: Febrile overnight with T-max 100.3 F. On ventilator with FiO2 100%, PEEP 8. Last dose of remdesivir today. Continue IV antibiotics. Continue IV Decadron to complete 10-day treatment. Continue supportive care. Critical care time 30 minutes spent reviewing charts, reviewing labs, reviewing imaging, and discussion with RN. Vitals/I&O Vitals/I&O: Vital Signs Date Time Temp Pulse Resp B/P (MAP) Pulse Ox O2 Delivery O2 Flow Rate FiO2 10/04/20 08:05 99 Ventilator 10/04/20 07:00 93 20 116/82 (93) 10/04/20 04:26 98.0 10/04/20 04:00 99.3 99.3 I & O 10/03/20 10/03/20 10/04/20 15:00 23:00 07:00 Intake Total 550 ml 3557 ml 2309 ml Output Total 475 ml 660 ml 490 ml Balance 75 ml 2897 ml 1819 ml Physical Exam General: Other (Intubated and sedated) Heart: Regular rate Lungs: Other (Intubated) Abdomen: Soft, No tenderness Extremities: No clubbing, No cyanosis Skin: No rashes, No breakdown Labs Labs: Laboratory Tests Test 10/03/20 09:20 10/03/20 12:41 10/03/20 16:10 10/03/20 20:37 White Blood Count 14.0 x10^3/uL (4.0-11.0) Red Blood Count 4.04 x10^6/uL (3.50-5.40) Hemoglobin 11.3 g/dL (12.0-15.5) Hematocrit 33.7 % (36.0-47.0) Mean Corpuscular Volume 84 fL (79-100) Mean Corpuscular Hemoglobin 28 pg (25-35) Mean Corpuscular Hemoglobin Concent 34 g/dL (31-37) Red Cell Distribution Width 14.4 % (11.5-14.5) Platelet Count 339 x10^3/uL (140-400) Neutrophils (%) (Auto) 88 % (31-73) Lymphocytes (%) (Auto) 5 % (24-48) Monocytes (%) (Auto) 7 % (0-9) Eosinophils (%) (Auto) 0 % (0-3) Basophils (%) (Auto) 0 % (0-3) Neutrophils # (Auto) 12.3 x10^3/uL (1.8-7.7) Lymphocytes # (Auto) 0.7 x10^3/uL (1.0-4.8) Monocytes # (Auto) 0.9 x10^3/uL (0.0-1.1) Eosinophils # (Auto) 0.0 x10^3/uL (0.0-0.7) Basophils # (Auto) 0.1 x10^3/uL (0.0-0.2) Sodium Level 141 mmol/L (136-145) Potassium Level 3.5 mmol/L (3.5-5.1) Chloride Level 103 mmol/L (98-107) Carbon Dioxide Level 31 mmol/L (21-32) Anion Gap 7 (6-14) Blood Urea Nitrogen 26 mg/dL (7-20) Creatinine 0.9 mg/dL (0.6-1.0) Estimated GFR (Cockcroft-Gault) 86.2 Glucose Level 291 mg/dL (70-99) Calcium Level 8.2 mg/dL (8.5-10.1) C-Reactive Protein, Quantitative 114.8 mg/L (0-3.3) Glucose (Fingerstick) 312 mg/dL (70-99) 321 mg/dL (70-99) 258 mg/dL (70-99) Test 10/04/20 00:05 10/04/20 05:05 10/04/20 05:11 Glucose (Fingerstick) 270 mg/dL (70-99) 232 mg/dL (70-99) White Blood Count 15.6 x10^3/uL (4.0-11.0) Red Blood Count 4.14 x10^6/uL (3.50-5.40) Hemoglobin 11.3 g/dL (12.0-15.5) Hematocrit 34.7 % (36.0-47.0) Mean Corpuscular Volume 84 fL (79-100) Mean Corpuscular Hemoglobin 27 pg (25-35) Mean Corpuscular Hemoglobin Concent 33 g/dL (31-37) Red Cell Distribution Width 14.3 % (11.5-14.5) Platelet Count 329 x10^3/uL (140-400) Neutrophils (%) (Auto) 90 % (31-73) Lymphocytes (%) (Auto) 5 % (24-48) Monocytes (%) (Auto) 6 % (0-9) Eosinophils (%) (Auto) 0 % (0-3) Basophils (%) (Auto) 0 % (0-3) Neutrophils # (Auto) 14.0 x10^3/uL (1.8-7.7) Lymphocytes # (Auto) 0.7 x10^3/uL (1.0-4.8) Monocytes # (Auto) 0.9 x10^3/uL (0.0-1.1) Eosinophils # (Auto) 0.0 x10^3/uL (0.0-0.7) Basophils # (Auto) 0.0 x10^3/uL (0.0-0.2) Sodium Level 139 mmol/L (136-145) Potassium Level 3.5 mmol/L (3.5-5.1) Chloride Level 103 mmol/L (98-107) Carbon Dioxide Level 30 mmol/L (21-32) Anion Gap 6 (6-14) Blood Urea Nitrogen 18 mg/dL (7-20) Creatinine 0.8 mg/dL (0.6-1.0) Estimated GFR (Cockcroft-Gault) 98.8 Glucose Level 234 mg/dL (70-99) Calcium Level 8.3 mg/dL (8.5-10.1) Assessment and Plan Assessmemt and Plan Problems Medical Problems: (1) COVID-19 Status: Acute (2) Hypoxia Status: Acute Comment Review of Relevant I have reviewed the following items adryan (where applicable) has been applied. Medications: Current Medications Medications (Trade) Dose Ordered Sig/Vidal Route PRN Reason Start Time Stop Time Status Last Admin Dose Admin Dexamethasone Sodium Phosphate (Decadron) 6 mg DAILY IVP 10/03/20 09:00 10/04/20 08:02 Potassium Chloride/Water 100 ml @ 100 mls/hr 1X ONCE IV 10/03/20 12:00 10/03/20 12:59 DC 10/03/20 12:35 Potassium Bicarbonate (Potassium Effervescent Tablet) 40 meq 1X ONCE PEG 10/04/20 08:00 10/04/20 08:01 DC 10/04/20 07:56 Justifications for Admission Other Justification NINOSKA CARMONA MD Oct 04, 2020 08:23
[2020-10-04 09:06] LABS: BASE EXCESS ABG 2 mmol/L (-3-3); HCO3 ABG 26 mmol/L (21-28); PCO2 ABG 40 mmHg (35-46); PO2 ABG 86 mmHg (85-108); SAT O2 ABG 97 % (92-99)
[2020-10-04 09:08] LABS: FIO2 ABG 100% VENT
--- NOTE | 2020-10-04 09:55 | NUR ---
SS following up with discharge planning. SS reviewed pt chart and discussed with pt RN. Pt is currently on the vent at 100%. COVID19 positive. Pt on IV Remdesivir, IV Decadron, IV Rocephin, and IV Doxycycline. Pt on Fentanyl, Versed, and Propofol. Not stable. SS will continue to follow for discharge planning.
[2020-10-04] MEDS: DOXYCYCLINE HYCLATE 100 MG in IV DEXTROSE 5% 100ML 100 ML IV SCH ×2 (10:45→21:18)
--- NOTE | 2020-10-04 10:50 | PDOC ---
PULMONARY PROGRESS NOTES DATE: 10/04/20 TIME: 10:49 Subjective intubated 10/01/20 remains on vent support 100% and PEEP of 8 Fever overnight no overnight concerns from nursing Vitals Vital Signs Date Time Temp Pulse Resp B/P (MAP) Pulse Ox O2 Delivery O2 Flow Rate FiO2 10/04/20 10:03 Ventilator 10/04/20 10:00 100 20 122/82 (95) 94 10/04/20 08:00 99.0 99.0 10/04/20 04:26 98.0 Comments Patient seen during pandemic RRR no distress intubated No obvious rash or edema Lungs: Other (Intubated) Labs Laboratory Tests Test 10/02/20 11:28 10/02/20 15:20 10/02/20 17:57 10/02/20 20:05 Glucose (Fingerstick) 368 mg/dL (70-99) 356 mg/dL (70-99) 304 mg/dL (70-99) Prothrombin Time 15.0 SEC (11.7-14.0) Prothromb Time International Ratio 1.2 (0.8-1.1) Activated Partial Thromboplast Time 31 SEC (24-38) Test 10/03/20 00:13 10/03/20 06:00 10/03/20 07:30 10/03/20 07:56 Glucose (Fingerstick) 243 mg/dL (70-99) 199 mg/dL (70-99) 206 mg/dL (70-99) O2 Saturation 94 % (92-99) Arterial Blood pH 7.44 (7.35-7.45) Arterial Blood pCO2 at Patient Temp 42 mmHg (35-46) Arterial Blood pO2 at Patient Temp 69 mmHg (85-108) Arterial Blood HCO3 28 mmol/L (21-28) Arterial Blood Base Excess 4 mmol/L (-3-3) FiO2 100/vent Test 10/03/20 09:20 10/03/20 12:41 10/03/20 16:10 10/03/20 20:37 White Blood Count 14.0 x10^3/uL (4.0-11.0) Red Blood Count 4.04 x10^6/uL (3.50-5.40) Hemoglobin 11.3 g/dL (12.0-15.5) Hematocrit 33.7 % (36.0-47.0) Mean Corpuscular Volume 84 fL (79-100) Mean Corpuscular Hemoglobin 28 pg (25-35) Mean Corpuscular Hemoglobin Concent 34 g/dL (31-37) Red Cell Distribution Width 14.4 % (11.5-14.5) Platelet Count 339 x10^3/uL (140-400) Neutrophils (%) (Auto) 88 % (31-73) Lymphocytes (%) (Auto) 5 % (24-48) Monocytes (%) (Auto) 7 % (0-9) Eosinophils (%) (Auto) 0 % (0-3) Basophils (%) (Auto) 0 % (0-3) Neutrophils # (Auto) 12.3 x10^3/uL (1.8-7.7) Lymphocytes # (Auto) 0.7 x10^3/uL (1.0-4.8) Monocytes # (Auto) 0.9 x10^3/uL (0.0-1.1) Eosinophils # (Auto) 0.0 x10^3/uL (0.0-0.7) Basophils # (Auto) 0.1 x10^3/uL (0.0-0.2) Sodium Level 141 mmol/L (136-145) Potassium Level 3.5 mmol/L (3.5-5.1) Chloride Level 103 mmol/L (98-107) Carbon Dioxide Level 31 mmol/L (21-32) Anion Gap 7 (6-14) Blood Urea Nitrogen 26 mg/dL (7-20) Creatinine 0.9 mg/dL (0.6-1.0) Estimated GFR (Cockcroft-Gault) 86.2 Glucose Level 291 mg/dL (70-99) Calcium Level 8.2 mg/dL (8.5-10.1) C-Reactive Protein, Quantitative 114.8 mg/L (0-3.3) Glucose (Fingerstick) 312 mg/dL (70-99) 321 mg/dL (70-99) 258 mg/dL (70-99) Test 10/04/20 00:05 10/04/20 05:05 10/04/20 05:11 10/04/20 09:00 Glucose (Fingerstick) 270 mg/dL (70-99) 232 mg/dL (70-99) White Blood Count 15.6 x10^3/uL (4.0-11.0) Red Blood Count 4.14 x10^6/uL (3.50-5.40) Hemoglobin 11.3 g/dL (12.0-15.5) Hematocrit 34.7 % (36.0-47.0) Mean Corpuscular Volume 84 fL (79-100) Mean Corpuscular Hemoglobin 27 pg (25-35) Mean Corpuscular Hemoglobin Concent 33 g/dL (31-37) Red Cell Distribution Width 14.3 % (11.5-14.5) Platelet Count 329 x10^3/uL (140-400) Neutrophils (%) (Auto) 90 % (31-73) Lymphocytes (%) (Auto) 5 % (24-48) Monocytes (%) (Auto) 6 % (0-9) Eosinophils (%) (Auto) 0 % (0-3) Basophils (%) (Auto) 0 % (0-3) Neutrophils # (Auto) 14.0 x10^3/uL (1.8-7.7) Lymphocytes # (Auto) 0.7 x10^3/uL (1.0-4.8) Monocytes # (Auto) 0.9 x10^3/uL (0.0-1.1) Eosinophils # (Auto) 0.0 x10^3/uL (0.0-0.7) Basophils # (Auto) 0.0 x10^3/uL (0.0-0.2) Sodium Level 139 mmol/L (136-145) Potassium Level 3.5 mmol/L (3.5-5.1) Chloride Level 103 mmol/L (98-107) Carbon Dioxide Level 30 mmol/L (21-32) Anion Gap 6 (6-14) Blood Urea Nitrogen 18 mg/dL (7-20) Creatinine 0.8 mg/dL (0.6-1.0) Estimated GFR (Cockcroft-Gault) 98.8 Glucose Level 234 mg/dL (70-99) Calcium Level 8.3 mg/dL (8.5-10.1) O2 Saturation 97 % (92-99) Arterial Blood pH 7.44 (7.35-7.45) Arterial Blood pCO2 at Patient Temp 40 mmHg (35-46) Arterial Blood pO2 at Patient Temp 86 mmHg (85-108) Arterial Blood HCO3 26 mmol/L (21-28) Arterial Blood Base Excess 2 mmol/L (-3-3) FiO2 100% vent Laboratory Tests Test 10/03/20 12:41 10/03/20 16:10 10/03/20 20:37 10/04/20 00:05 Glucose (Fingerstick) 312 mg/dL (70-99) 321 mg/dL (70-99) 258 mg/dL (70-99) 270 mg/dL (70-99) Test 10/04/20 05:05 10/04/20 05:11 10/04/20 09:00 White Blood Count 15.6 x10^3/uL (4.0-11.0) Red Blood Count 4.14 x10^6/uL (3.50-5.40) Hemoglobin 11.3 g/dL (12.0-15.5) Hematocrit 34.7 % (36.0-47.0) Mean Corpuscular Volume 84 fL (79-100) Mean Corpuscular Hemoglobin 27 pg (25-35) Mean Corpuscular Hemoglobin Concent 33 g/dL (31-37) Red Cell Distribution Width 14.3 % (11.5-14.5) Platelet Count 329 x10^3/uL (140-400) Neutrophils (%) (Auto) 90 % (31-73) Lymphocytes (%) (Auto) 5 % (24-48) Monocytes (%) (Auto) 6 % (0-9) Eosinophils (%) (Auto) 0 % (0-3) Basophils (%) (Auto) 0 % (0-3) Neutrophils # (Auto) 14.0 x10^3/uL (1.8-7.7) Lymphocytes # (Auto) 0.7 x10^3/uL (1.0-4.8) Monocytes # (Auto) 0.9 x10^3/uL (0.0-1.1) Eosinophils # (Auto) 0.0 x10^3/uL (0.0-0.7) Basophils # (Auto) 0.0 x10^3/uL (0.0-0.2) Sodium Level 139 mmol/L (136-145) Potassium Level 3.5 mmol/L (3.5-5.1) Chloride Level 103 mmol/L (98-107) Carbon Dioxide Level 30 mmol/L (21-32) Anion Gap 6 (6-14) Blood Urea Nitrogen 18 mg/dL (7-20) Creatinine 0.8 mg/dL (0.6-1.0) Estimated GFR (Cockcroft-Gault) 98.8 Glucose Level 234 mg/dL (70-99) Calcium Level 8.3 mg/dL (8.5-10.1) Glucose (Fingerstick) 232 mg/dL (70-99) O2 Saturation 97 % (92-99) Arterial Blood pH 7.44 (7.35-7.45) Arterial Blood pCO2 at Patient Temp 40 mmHg (35-46) Arterial Blood pO2 at Patient Temp 86 mmHg (85-108) Arterial Blood HCO3 26 mmol/L (21-28) Arterial Blood Base Excess 2 mmol/L (-3-3) FiO2 100% vent Medications Active Scripts Medications Dose Route/Sig Max Daily Dose Days Date Category Fluoxetine Hcl 60 Mg Tablet 1 Tab PO DAILY 09/30/20 Reported Losartan Potassium 50 Mg Tablet 1 Tab PO DAILY 09/30/20 Reported Hydrochlorothiazide 25 Mg Tablet 1 Tab PO DAILY 09/30/20 Reported Labetalol Hcl 200 Mg Tablet 1 Tab PO BID 12/28/14 Rx Lasix (Furosemide) 20 Mg Tablet 1 Tab PO DAILY 12/28/14 Rx Percocet 5-325 Mg Tablet (Oxycodone/Acetaminophen) 1 Each Tablet 1 Tab PO Q4HRS W/A 12/28/14 Rx Ibuprofen 800 Mg Tablet 800 Mg PO Q6H PRN 12/28/14 Rx Methyldopa 500 Mg Tablet 500 Mg PO QID 12/23/14 Reported Zoloft (Sertraline Hcl) 25 Mg Tablet 25 Mg .ROUTE DAILY 12/23/14 Reported Glyburide 2.5 Mg Tablet 2.5 Mg PO QID 12/23/14 Reported Procardia (Nifedipine) 10 Mg Capsule 60 Mg PO DAILY 12/23/14 Reported Tylenol (Acetaminophen) 325 Mg Tablet 325 Mg PO 08/25/13 Reported Prena1 Plus Combo Pack ( No.39/Iron/Fa #6/Dha) 1 Each Combo..pkg 1 Each PO 08/25/13 Reported Comments Chest x-ray reviewed dated 10/03/2020. Extensive bilateral infiltrates. Slightly decreased in the right lower lobe. Impression . IMPRESSION: 1. Acute hypoxic respiratory failure secondary to COVID-19 viral pneumonia/ARDS/acute lung injury.----- worsening,now intubated 10/01/20 2. Underlying morbid obesity with a BMI of 58, is another main contributing factor to the severity of hypoxia. 3. No significant tobacco history. 4. Abnormal chest x-ray with bilateral interstitial infiltrates consistent with viral pneumonia. 5. Hypokalemia. 6. High-grade fever secondary to COVID-19 viral infection. Plan . Updated 10/04/2020 Continue current vent support 20/500/90/8 Chest x-ray and ABG, make changes as needed Symptomatic treatment of fever Continue IV steroids for full 10-day course, started on 09/30/2020 Continue remdesivir for full course Continue empiric antibiotics, currently on Rocephin and doxycycline Continue tube feeding recommendations DVT/GI prophylaxis:lovenox Discussed with RN and RT Critical care time 30 minutes Updated 10/03/2020 Continue current vent support 20/500/100/8 Chest x-ray and ABG, make changes as needed Symptomatic treatment of fever Continue IV steroids for full 10-day course, started on 09/30/2020 Continue remdesivir for full course Continue empiric antibiotics, currently on Rocephin and doxycycline Continue tube feeding recommendations DVT/GI prophylaxis:lovenox Discussed with RN and RT Critical care time 30 minutes NILO CURTIS MD Oct 04, 2020 10:50
--- NOTE | 2020-10-04 13:01 | NUR ---
here and purse and tristan, phone nozzle tender and cell phone, slippers, and pajamas given to him.
[2020-10-04] MEDS: cefTRIAXone IV Push 1 GM VIAL. IVP SCH (16:42)
[2020-10-04] MEDS: REMDESIVIR 100mg in NORMAL SALINE 250ML X 4 DAYS IV SCH (16:42)
[2020-10-05] VITALS (24 sets, daily range): BP systolic 109–156; BP diastolic 69–108
[2020-10-05] MEDS: INSULIN LISPRO 300 UNITS/3 ML VIAL. SQ SCH ×7 (00:28→18:24)
[2020-10-05] MEDS: VECURONIUM BOLUS 10 MG VIAL. IV PRN ×5 (01:33→22:00)
[2020-10-05] MEDS: PROPOFOL 100 ML IV PRN ×10 (02:21→23:41)
[2020-10-05 06:40] LABS: BASO % 0 % (0-3); CALCIUM 8.2 mg/dL (8.5-10.1); CREATININE 0.7 mg/dL (0.6-1.0); EOS % 0 % (0-3); GFR 115.2; HEMATOCRIT 34.6 % (36.0-47.0); LYMPH # 0.8 x10^3/uL (1.0-4.8); LYMPH % 5 % (24-48); MEAN CORPUSCULAR HEMOGLOBIN 27 pg (25-35); MEAN CORPUSCULAR HGB CONC 32 g/dL (31-37); MEAN CORPUSCULAR VOLUME 84 fL (79-100); MONO % 6 % (0-9); NEUT # 14.8 x10^3/uL (1.8-7.7); NEUT % 89 % (31-73); PLATELET COUNT 283 x10^3/uL (140-400); POTASSIUM 3.9 mmol/L (3.5-5.1); RED BLOOD COUNT 4.11 x10^6/uL (3.50-5.40); RED CELL DISTRIBUTION WIDTH 14.7 % (11.5-14.5); WHITE BLOOD COUNT 16.7 x10^3/uL (4.0-11.0)
[2020-10-05] MEDS ORDERED: IV NORMAL SALINE 500ML BAG 500 ML IV PRN (08:00)
[2020-10-05] MEDS ORDERED: ATROPINE 0.5 MG/5 ML DISP.SYRINGE. IV PRN (08:00)
[2020-10-05 08:03] LABS: BASE EXCESS ABG 1 mmol/L (-3-3); HCO3 ABG 27 mmol/L (21-28); PCO2 ABG 45 mmHg (35-46); SAT O2 ABG 85 % (92-99)
[2020-10-05 08:04] LABS: FIO2 ABG 100; PO2 ABG 49 mmHg (85-108)
[2020-10-05] MEDS: DEXMEDETOMIDINE 400 MCG in IV NORMAL SALINE 100ML 96 ML IV PRN ×6 (08:46→23:42)
[2020-10-05] MEDS: MIDAZOLAM 100mg/100ml NS BAG 100 ML IV PRN ×2 (08:47→18:24)
[2020-10-05] MEDS: INSULIN GLARGINE SYRINGE. SQ SCH ×2 (08:51→21:50)
[2020-10-05] MEDS: DOXYCYCLINE HYCLATE 100 MG in IV DEXTROSE 5% 100ML 100 ML IV SCH ×2 (08:51→21:47)
[2020-10-05] MEDS: DEXAMETHASONE SOD PHOS 4 MG/ML VIAL IVP SCH (08:52)
[2020-10-05] MEDS: glyBURIDE 1.25 MG TABLET PO SCH ×4 (08:52→21:49)
[2020-10-05] MEDS: FAMOTIDINE 20 MG/2 ML VIAL IVP SCH ×2 (08:52→21:49)
[2020-10-05] MEDS: ASPIRIN CHEWABLE 81 MG TABLET. PO SCH (08:52)
[2020-10-05] MEDS: ELECTROLYTE (ICU) PROTOCOL. MC SCH (08:53)
[2020-10-05] MEDS: MULTIVITAMINS,THERAPEUTIC 5 ML ORAL LIQUID. PEG SCH (08:53)
--- NOTE | 2020-10-05 08:55 | PDOC ---
[employer] PROGRESS NOTE Date of Service DOS: DATE: 10/05/20 TIME: 08:54 Chief Complaint Chief Complaint Covid 19 pneumonia/ ARDS Viral sepsis Acute hypoxic resp failure Super morbid obesity Extensive pulmonary opacities with areas of consolidation // multilobar pneumonia versus noncardiogenic pulmonary edema from ARDS. plan ADMIT ICU BED Consult pulmonary dvt prophylaxis Vapotherm 40 L 100% with additional 100% nonrebreather, plan intubation 8-16 IV STEROIDS COVID 19 PROTOCOL IV DOXYCYCLINE 100MG BID SERIAL CXR Critically ill History of Present Illness History of Present Illness 34 year old female past medical history hypertension diabetes presented with a chief complaint of shortness of breath. diagnosed with COVID-19 this past Thursday. in er c/o shortness of breath cough fever muscle aches x1 week. //not vaccinated against COVID-19. Patient states over the last 2 days shortness of breath is progressed to become worse. Patient states she cannot catch her breath therefore she called 911. Upon EMS arrival patient's oxygen saturation in the upper 80s on room air. On arrival in ER patient patient on 15 L nonrebreather NOW IN NEED OF INTUBATION FOR Covid 19 pneumonia // Viral sepsis Acute hypoxic resp failure Super morbid obesity CXR C/W Extensive pulmonary opacities with areas of consolidation // multilobar pneumonia versus noncardiogenic pulmonary edema from ARDS. 10/02/2020: Afe low-grade fever in ICU yesterday (99.6 F). Intubated in ICU yesterday, on vent with FiO2 100%, PEEP 8. She was initiated on remdesivir. We will continue treatment with IV steroids and antibiotics. Still hyperglycemic today; will adjust insulin. Appreciate pulmonology recommendations and management patient. Critical care time 30 minutes spent reviewing charts, reviewing labs, examination, discussion with RN. 10/03/2020: Febrile overnight with T-max 101.1 F. On vent with FiO2 100%, PEEP 8. Chest x-ray today showed extensive pulmonary infiltrates again demonstrated with some improved aeration at the left perihilar upper lobe and lingula. Morning labs pending at this time. Continue IV antibiotics. Continue IV Decadron to complete 10-day treatment. Continue supportive care. Critical care time 30 minutes spent reviewing charts, reviewing labs, reviewing imaging, and discussion with RN. 10/04/2020: Febrile overnight with T-max 100.3 F. On ventilator with FiO2 100%, PEEP 8. Last dose of remdesivir today. Continue IV antibiotics. Continue IV Decadron to complete 10-day treatment. Continue supportive care. Critical care time 30 minutes spent reviewing charts, reviewing labs, reviewing imaging, and discussion with RN. 10/05/2020: Afebrile overnight. On vent with FiO2 100%, PEEP 8. She has completed remdesivir. We will continue with IV steroids and IV antibiotics to complete 10-day treatment (last day should be 10/11/2020). Continue supportive care. Critical care time 30 minutes spent reviewing charts, reviewing labs, reviewing imaging, and discussion with RN. Vitals/I&O Vitals/I&O: Vital Signs Date Time Temp Pulse Resp B/P (MAP) Pulse Ox O2 Delivery O2 Flow Rate FiO2 10/05/20 08:48 24 88 Ventilator 10/05/20 07:00 92 112/76 (88) 10/05/20 04:00 99.2 99.2 10/05/20 03:25 98.0 I & O 10/04/20 10/04/20 10/05/20 15:00 23:00 07:00 Intake Total 400 ml 1844 ml 1265 ml Output Total 315 ml 855 ml 435 ml Balance 85 ml 989 ml 830 ml Physical Exam General: Other (Intubated and sedated) Heart: Regular rate Lungs: Other (Intubated) Abdomen: Soft, No tenderness Extremities: No clubbing, No cyanosis Skin: No rashes, No breakdown Labs Labs: Laboratory Tests Test 10/04/20 09:00 10/04/20 12:26 10/04/20 16:48 10/04/20 23:02 O2 Saturation 97 % (92-99) Arterial Blood pH 7.44 (7.35-7.45) Arterial Blood pCO2 at Patient Temp 40 mmHg (35-46) Arterial Blood pO2 at Patient Temp 86 mmHg (85-108) Arterial Blood HCO3 26 mmol/L (21-28) Arterial Blood Base Excess 2 mmol/L (-3-3) FiO2 100% vent Glucose (Fingerstick) 262 mg/dL (70-99) 315 mg/dL (70-99) 245 mg/dL (70-99) Test 8/20/21 00:25 10/05/20 03:47 10/05/20 05:40 10/05/20 05:47 Glucose (Fingerstick) 240 mg/dL (70-99) 197 mg/dL (70-99) 186 mg/dL (70-99) White Blood Count 16.7 x10^3/uL (4.0-11.0) Red Blood Count 4.11 x10^6/uL (3.50-5.40) Hemoglobin 11.0 g/dL (12.0-15.5) Hematocrit 34.6 % (36.0-47.0) Mean Corpuscular Volume 84 fL (79-100) Mean Corpuscular Hemoglobin 27 pg (25-35) Mean Corpuscular Hemoglobin Concent 32 g/dL (31-37) Red Cell Distribution Width 14.7 % (11.5-14.5) Platelet Count 283 x10^3/uL (140-400) Neutrophils (%) (Auto) 89 % (31-73) Lymphocytes (%) (Auto) 5 % (24-48) Monocytes (%) (Auto) 6 % (0-9) Eosinophils (%) (Auto) 0 % (0-3) Basophils (%) (Auto) 0 % (0-3) Neutrophils # (Auto) 14.8 x10^3/uL (1.8-7.7) Lymphocytes # (Auto) 0.8 x10^3/uL (1.0-4.8) Monocytes # (Auto) 1.0 x10^3/uL (0.0-1.1) Eosinophils # (Auto) 0.0 x10^3/uL (0.0-0.7) Basophils # (Auto) 0.0 x10^3/uL (0.0-0.2) Sodium Level 140 mmol/L (136-145) Potassium Level 3.9 mmol/L (3.5-5.1) Chloride Level 106 mmol/L (98-107) Carbon Dioxide Level 30 mmol/L (21-32) Anion Gap 4 (6-14) Blood Urea Nitrogen 15 mg/dL (7-20) Creatinine 0.7 mg/dL (0.6-1.0) Estimated GFR (Cockcroft-Gault) 115.2 Glucose Level 199 mg/dL (70-99) Calcium Level 8.2 mg/dL (8.5-10.1) Triglycerides Level 235 mg/dL (0-150) Test 10/05/20 07:59 O2 Saturation 85 % (92-99) Arterial Blood pH 7.39 (7.35-7.45) Arterial Blood pCO2 at Patient Temp 45 mmHg (35-46) Arterial Blood pO2 at Patient Temp 49 mmHg (85-108) Arterial Blood HCO3 27 mmol/L (21-28) Arterial Blood Base Excess 1 mmol/L (-3-3) FiO2 100 Assessment and Plan Assessmemt and Plan Problems Medical Problems: (1) COVID-19 Status: Acute (2) Hypoxia Status: Acute Comment Review of Relevant I have reviewed the following items adryan (where applicable) has been applied. Medications: Current Medications Medications (Trade) Dose Ordered Sig/Vidal Route PRN Reason Start Time Stop Time Status Last Admin Dose Admin Insulin Glargine (Lantus Syringe) 28 unit BID SQ 10/04/20 09:00 10/05/20 08:51 Dexmedetomidine HCl 400 mcg/ Sodium Chloride 100 ml @ 0 mls/hr CONT PRN IV PER PROTOCOL 10/05/20 08:00 10/05/20 08:46 Justifications for Admission Other Justification NINOSKA CARMONA MD Oct 05, 2020 08:55
--- NOTE | 2020-10-05 09:49 | PDOC ---
PULMONARY PROGRESS NOTES DATE: 10/05/20 TIME: 09:47 Subjective intubated 10/01/20 remains on vent support 100% and PEEP of 8 Fever overnight Patient had increased work of breathing last night. She desaturated. Precedex was added. She is now in sync with the ventilator and saturations are in the mid 90s. Vitals Vital Signs Date Time Temp Pulse Resp B/P (MAP) Pulse Ox O2 Delivery O2 Flow Rate FiO2 10/05/20 09:21 90 Ventilator 10/05/20 09:18 20 10/05/20 09:00 93 113/70 (84) 10/05/20 08:00 99.4 99.4 10/05/20 03:25 98.0 Comments Patient seen during pandemic RRR no distress intubated No obvious rash or edema Labs Laboratory Tests Test 10/03/20 12:41 10/03/20 16:10 10/03/20 20:37 10/04/20 00:05 Glucose (Fingerstick) 312 mg/dL (70-99) 321 mg/dL (70-99) 258 mg/dL (70-99) 270 mg/dL (70-99) Test 10/04/20 05:05 10/04/20 05:11 10/04/20 09:00 10/04/20 12:26 White Blood Count 15.6 x10^3/uL (4.0-11.0) Red Blood Count 4.14 x10^6/uL (3.50-5.40) Hemoglobin 11.3 g/dL (12.0-15.5) Hematocrit 34.7 % (36.0-47.0) Mean Corpuscular Volume 84 fL (79-100) Mean Corpuscular Hemoglobin 27 pg (25-35) Mean Corpuscular Hemoglobin Concent 33 g/dL (31-37) Red Cell Distribution Width 14.3 % (11.5-14.5) Platelet Count 329 x10^3/uL (140-400) Neutrophils (%) (Auto) 90 % (31-73) Lymphocytes (%) (Auto) 5 % (24-48) Monocytes (%) (Auto) 6 % (0-9) Eosinophils (%) (Auto) 0 % (0-3) Basophils (%) (Auto) 0 % (0-3) Neutrophils # (Auto) 14.0 x10^3/uL (1.8-7.7) Lymphocytes # (Auto) 0.7 x10^3/uL (1.0-4.8) Monocytes # (Auto) 0.9 x10^3/uL (0.0-1.1) Eosinophils # (Auto) 0.0 x10^3/uL (0.0-0.7) Basophils # (Auto) 0.0 x10^3/uL (0.0-0.2) Sodium Level 139 mmol/L (136-145) Potassium Level 3.5 mmol/L (3.5-5.1) Chloride Level 103 mmol/L (98-107) Carbon Dioxide Level 30 mmol/L (21-32) Anion Gap 6 (6-14) Blood Urea Nitrogen 18 mg/dL (7-20) Creatinine 0.8 mg/dL (0.6-1.0) Estimated GFR (Cockcroft-Gault) 98.8 Glucose Level 234 mg/dL (70-99) Calcium Level 8.3 mg/dL (8.5-10.1) Glucose (Fingerstick) 232 mg/dL (70-99) 262 mg/dL (70-99) O2 Saturation 97 % (92-99) Arterial Blood pH 7.44 (7.35-7.45) Arterial Blood pCO2 at Patient Temp 40 mmHg (35-46) Arterial Blood pO2 at Patient Temp 86 mmHg (85-108) Arterial Blood HCO3 26 mmol/L (21-28) Arterial Blood Base Excess 2 mmol/L (-3-3) FiO2 100% vent Test 10/04/20 16:48 10/04/20 23:02 10/05/20 00:25 10/05/20 03:47 Glucose (Fingerstick) 315 mg/dL (70-99) 245 mg/dL (70-99) 240 mg/dL (70-99) 197 mg/dL (70-99) Test 10/05/20 05:40 10/05/20 05:47 10/05/20 07:59 White Blood Count 16.7 x10^3/uL (4.0-11.0) Red Blood Count 4.11 x10^6/uL (3.50-5.40) Hemoglobin 11.0 g/dL (12.0-15.5) Hematocrit 34.6 % (36.0-47.0) Mean Corpuscular Volume 84 fL (79-100) Mean Corpuscular Hemoglobin 27 pg (25-35) Mean Corpuscular Hemoglobin Concent 32 g/dL (31-37) Red Cell Distribution Width 14.7 % (11.5-14.5) Platelet Count 283 x10^3/uL (140-400) Neutrophils (%) (Auto) 89 % (31-73) Lymphocytes (%) (Auto) 5 % (24-48) Monocytes (%) (Auto) 6 % (0-9) Eosinophils (%) (Auto) 0 % (0-3) Basophils (%) (Auto) 0 % (0-3) Neutrophils # (Auto) 14.8 x10^3/uL (1.8-7.7) Lymphocytes # (Auto) 0.8 x10^3/uL (1.0-4.8) Monocytes # (Auto) 1.0 x10^3/uL (0.0-1.1) Eosinophils # (Auto) 0.0 x10^3/uL (0.0-0.7) Basophils # (Auto) 0.0 x10^3/uL (0.0-0.2) Sodium Level 140 mmol/L (136-145) Potassium Level 3.9 mmol/L (3.5-5.1) Chloride Level 106 mmol/L (98-107) Carbon Dioxide Level 30 mmol/L (21-32) Anion Gap 4 (6-14) Blood Urea Nitrogen 15 mg/dL (7-20) Creatinine 0.7 mg/dL (0.6-1.0) Estimated GFR (Cockcroft-Gault) 115.2 Glucose Level 199 mg/dL (70-99) Calcium Level 8.2 mg/dL (8.5-10.1) Triglycerides Level 235 mg/dL (0-150) Glucose (Fingerstick) 186 mg/dL (70-99) O2 Saturation 85 % (92-99) Arterial Blood pH 7.39 (7.35-7.45) Arterial Blood pCO2 at Patient Temp 45 mmHg (35-46) Arterial Blood pO2 at Patient Temp 49 mmHg (85-108) Arterial Blood HCO3 27 mmol/L (21-28) Arterial Blood Base Excess 1 mmol/L (-3-3) FiO2 100 Laboratory Tests Test 10/04/20 12:26 10/04/20 16:48 10/04/20 23:02 10/05/20 00:25 Glucose (Fingerstick) 262 mg/dL (70-99) 315 mg/dL (70-99) 245 mg/dL (70-99) 240 mg/dL (70-99) Test 10/05/20 03:47 10/05/20 05:40 10/05/20 05:47 10/05/20 07:59 Glucose (Fingerstick) 197 mg/dL (70-99) 186 mg/dL (70-99) White Blood Count 16.7 x10^3/uL (4.0-11.0) Red Blood Count 4.11 x10^6/uL (3.50-5.40) Hemoglobin 11.0 g/dL (12.0-15.5) Hematocrit 34.6 % (36.0-47.0) Mean Corpuscular Volume 84 fL (79-100) Mean Corpuscular Hemoglobin 27 pg (25-35) Mean Corpuscular Hemoglobin Concent 32 g/dL (31-37) Red Cell Distribution Width 14.7 % (11.5-14.5) Platelet Count 283 x10^3/uL (140-400) Neutrophils (%) (Auto) 89 % (31-73) Lymphocytes (%) (Auto) 5 % (24-48) Monocytes (%) (Auto) 6 % (0-9) Eosinophils (%) (Auto) 0 % (0-3) Basophils (%) (Auto) 0 % (0-3) Neutrophils # (Auto) 14.8 x10^3/uL (1.8-7.7) Lymphocytes # (Auto) 0.8 x10^3/uL (1.0-4.8) Monocytes # (Auto) 1.0 x10^3/uL (0.0-1.1) Eosinophils # (Auto) 0.0 x10^3/uL (0.0-0.7) Basophils # (Auto) 0.0 x10^3/uL (0.0-0.2) Sodium Level 140 mmol/L (136-145) Potassium Level 3.9 mmol/L (3.5-5.1) Chloride Level 106 mmol/L (98-107) Carbon Dioxide Level 30 mmol/L (21-32) Anion Gap 4 (6-14) Blood Urea Nitrogen 15 mg/dL (7-20) Creatinine 0.7 mg/dL (0.6-1.0) Estimated GFR (Cockcroft-Gault) 115.2 Glucose Level 199 mg/dL (70-99) Calcium Level 8.2 mg/dL (8.5-10.1) Triglycerides Level 235 mg/dL (0-150) O2 Saturation 85 % (92-99) Arterial Blood pH 7.39 (7.35-7.45) Arterial Blood pCO2 at Patient Temp 45 mmHg (35-46) Arterial Blood pO2 at Patient Temp 49 mmHg (85-108) Arterial Blood HCO3 27 mmol/L (21-28) Arterial Blood Base Excess 1 mmol/L (-3-3) FiO2 100 Medications Active Scripts Medications Dose Route/Sig Max Daily Dose Days Date Category Fluoxetine Hcl 60 Mg Tablet 1 Tab PO DAILY 09/30/20 Reported Losartan Potassium 50 Mg Tablet 1 Tab PO DAILY 09/30/20 Reported Hydrochlorothiazide 25 Mg Tablet 1 Tab PO DAILY 09/30/20 Reported Labetalol Hcl 200 Mg Tablet 1 Tab PO BID 12/28/14 Rx Lasix (Furosemide) 20 Mg Tablet 1 Tab PO DAILY 12/28/14 Rx Percocet 5-325 Mg Tablet (Oxycodone/Acetaminophen) 1 Each Tablet 1 Tab PO Q4HRS W/A 12/28/14 Rx Ibuprofen 800 Mg Tablet 800 Mg PO Q6H PRN 12/28/14 Rx Methyldopa 500 Mg Tablet 500 Mg PO QID 12/23/14 Reported Zoloft (Sertraline Hcl) 25 Mg Tablet 25 Mg .ROUTE DAILY 12/23/14 Reported Glyburide 2.5 Mg Tablet 2.5 Mg PO QID 12/23/14 Reported Procardia (Nifedipine) 10 Mg Capsule 60 Mg PO DAILY 12/23/14 Reported Tylenol (Acetaminophen) 325 Mg Tablet 325 Mg PO 08/25/13 Reported Prena1 Plus Combo Pack ( No.39/Iron/Fa #6/Dha) 1 Each Combo..pkg 1 Each PO 08/25/13 Reported Comments Chest x-ray reviewed dated 10/03/2020. Extensive bilateral infiltrates. Slightly decreased in the right lower lobe. Impression . IMPRESSION: 1. Acute hypoxic respiratory failure secondary to COVID-19 viral pneumonia/ARDS/acute lung injury.----- worsening,now intubated 10/01/20. Currently on 100% oxygen and 8 of PEEP. 2. Underlying morbid obesity with a BMI of 58, is another main contributing factor to the severity of hypoxia. 3. No significant tobacco history. 4. Abnormal chest x-ray with bilateral interstitial infiltrates consistent with viral pneumonia. 5. Hypokalemia. 6. High-grade fever secondary to COVID-19 viral infection. Plan . Updated 10/05/2020 Continue current vent support 20/500/100/8 Continue maximum sedation along with as needed paralytics. Chest x-ray and ABG, make changes as needed Symptomatic treatment of fever Continue IV steroids for full 10-day course, started on 09/30/2020 Continue remdesivir for full course Continue empiric antibiotics, currently on Rocephin and doxycycline Continue tube feeding recommendations DVT/GI prophylaxis:lovenox Discussed with RN and RT I talked to patient's brother Thony. I have updated him about her condition. We will continue present aggressive care. Critical care time 30 minutes Updated 10/04/2020 Continue current vent support 20/500/90/8 Chest x-ray and ABG, make changes as needed Symptomatic treatment of fever Continue IV steroids for full 10-day course, started on 09/30/2020 Continue remdesivir for full course Continue empiric antibiotics, currently on Rocephin and doxycycline Continue tube feeding recommendations DVT/GI prophylaxis:lovenox Discussed with RN and RT Critical care time 30 minutes Updated 10/03/2020 Continue current vent support 20/500/100/8 Chest x-ray and ABG, make changes as needed Symptomatic treatment of fever Continue IV steroids for full 10-day course, started on 09/30/2020 Continue remdesivir for full course Continue empiric antibiotics, currently on Rocephin and doxycycline Continue tube feeding recommendations DVT/GI prophylaxis:lovenox Discussed with RN and RT Critical care time 30 minutes NILO CURTIS MD Oct 05, 2020 09:49
[2020-10-05] MEDS ORDERED: MINERAL OIL/PETROLATUM,WHITE OPHTH OINT 3.5GM TUBE. OU PRN (13:45)
[2020-10-05] MEDS: fentaNYL HIGH DOSE PCA 55 ML IV PRN (14:55)
--- NOTE | 2020-10-05 15:30 | NUR ---
SS following up with discharge planning. SS reviewed pt chart and discussed with pt RN. Pt is currently on the vent at 100%. COVID19 positive. Pt on IV Decadron, IV Rocephin, and IV Doxycycline. Pt on Fentanyl, Versed, Propofol, and Precedex. Not stable. SS will continue to follow for discharge planning.
[2020-10-05] MEDS: cefTRIAXone IV Push 1 GM VIAL. IVP SCH (16:25)
[2020-10-06] VITALS (24 sets, daily range): BP systolic 118–147; BP diastolic 76–99
[2020-10-06] MEDS: INSULIN LISPRO 300 UNITS/3 ML VIAL. SQ SCH ×8 (00:27→18:18)
[2020-10-06] MEDS: PROPOFOL 100 ML IV PRN ×9 (02:15→23:39)
[2020-10-06] MEDS: VECURONIUM BOLUS 10 MG VIAL. IV PRN ×2 (02:39→06:03)
[2020-10-06] MEDS: DEXMEDETOMIDINE 400 MCG in IV NORMAL SALINE 100ML 96 ML IV PRN ×5 (03:00→21:54)
[2020-10-06] MEDS: MIDAZOLAM 100mg/100ml NS BAG 100 ML IV PRN ×2 (03:01→15:59)
[2020-10-06 06:16] LABS: BASO # 0.1 x10^3/uL (0.0-0.2); BASO % 1 % (0-3); EOS % 0 % (0-3); HEMATOCRIT 36.8 % (36.0-47.0); HEMOGLOBIN 11.7 g/dL (12.0-15.5); LYMPH # 0.8 x10^3/uL (1.0-4.8); LYMPH % 5 % (24-48); MEAN CORPUSCULAR HEMOGLOBIN 27 pg (25-35); MEAN CORPUSCULAR HGB CONC 32 g/dL (31-37); MEAN CORPUSCULAR VOLUME 85 fL (79-100); MONO # 1.1 x10^3/uL (0.0-1.1); MONO % 8 % (0-9); NEUT % 86 % (31-73); PLATELET COUNT 317 x10^3/uL (140-400); RED BLOOD COUNT 4.34 x10^6/uL (3.50-5.40); RED CELL DISTRIBUTION WIDTH 14.8 % (11.5-14.5); WHITE BLOOD COUNT 15.1 x10^3/uL (4.0-11.0)
[2020-10-06] MEDS: ACETAMINOPHEN 650 MG/20.3 ML SOLUTION. PEG PRN ×3 (06:22→23:28)
[2020-10-06 06:27] LABS: CALCIUM 8.7 mg/dL (8.5-10.1); CREATININE 0.9 mg/dL (0.6-1.0); GFR 86.2; POTASSIUM 4.5 mmol/L (3.5-5.1)
--- NOTE | 2020-10-06 06:48 | PDOC ---
PULMONARY PROGRESS NOTES DATE: 10/06/20 TIME: 06:44 Subjective intubated 10/01/20 remains on vent support 100% and PEEP of 8 tachypneac desat 88% uses acc muscles on vec prn sedated on prop versed fentanyl precedex max T 103 Vitals Vital Signs Date Time Temp Pulse Resp B/P (MAP) Pulse Ox O2 Delivery O2 Flow Rate FiO2 10/06/20 06:00 96 20 125/83 (97) 87 Ventilator 10/06/20 04:00 101.9 101.9 Comments Patient seen during sedated on vent nc at RRR accessory muscle use obese intubated No obvious rash or edema Labs Laboratory Tests Test 10/04/20 09:00 10/04/20 12:26 10/04/20 16:48 10/04/20 23:02 O2 Saturation 97 % (92-99) Arterial Blood pH 7.44 (7.35-7.45) Arterial Blood pCO2 at Patient Temp 40 mmHg (35-46) Arterial Blood pO2 at Patient Temp 86 mmHg (85-108) Arterial Blood HCO3 26 mmol/L (21-28) Arterial Blood Base Excess 2 mmol/L (-3-3) FiO2 100% vent Glucose (Fingerstick) 262 mg/dL (70-99) 315 mg/dL (70-99) 245 mg/dL (70-99) Test 10/05/20 00:25 10/05/20 03:47 10/05/20 05:40 10/05/20 05:47 Glucose (Fingerstick) 240 mg/dL (70-99) 197 mg/dL (70-99) 186 mg/dL (70-99) White Blood Count 16.7 x10^3/uL (4.0-11.0) Red Blood Count 4.11 x10^6/uL (3.50-5.40) Hemoglobin 11.0 g/dL (12.0-15.5) Hematocrit 34.6 % (36.0-47.0) Mean Corpuscular Volume 84 fL (79-100) Mean Corpuscular Hemoglobin 27 pg (25-35) Mean Corpuscular Hemoglobin Concent 32 g/dL (31-37) Red Cell Distribution Width 14.7 % (11.5-14.5) Platelet Count 283 x10^3/uL (140-400) Neutrophils (%) (Auto) 89 % (31-73) Lymphocytes (%) (Auto) 5 % (24-48) Monocytes (%) (Auto) 6 % (0-9) Eosinophils (%) (Auto) 0 % (0-3) Basophils (%) (Auto) 0 % (0-3) Neutrophils # (Auto) 14.8 x10^3/uL (1.8-7.7) Lymphocytes # (Auto) 0.8 x10^3/uL (1.0-4.8) Monocytes # (Auto) 1.0 x10^3/uL (0.0-1.1) Eosinophils # (Auto) 0.0 x10^3/uL (0.0-0.7) Basophils # (Auto) 0.0 x10^3/uL (0.0-0.2) Sodium Level 140 mmol/L (136-145) Potassium Level 3.9 mmol/L (3.5-5.1) Chloride Level 106 mmol/L (98-107) Carbon Dioxide Level 30 mmol/L (21-32) Anion Gap 4 (6-14) Blood Urea Nitrogen 15 mg/dL (7-20) Creatinine 0.7 mg/dL (0.6-1.0) Estimated GFR (Cockcroft-Gault) 115.2 Glucose Level 199 mg/dL (70-99) Calcium Level 8.2 mg/dL (8.5-10.1) Triglycerides Level 235 mg/dL (0-150) Test 10/05/20 07:59 10/05/20 12:08 10/05/20 18:17 10/06/20 00:23 O2 Saturation 85 % (92-99) Arterial Blood pH 7.39 (7.35-7.45) Arterial Blood pCO2 at Patient Temp 45 mmHg (35-46) Arterial Blood pO2 at Patient Temp 49 mmHg (85-108) Arterial Blood HCO3 27 mmol/L (21-28) Arterial Blood Base Excess 1 mmol/L (-3-3) FiO2 100 Glucose (Fingerstick) 244 mg/dL (70-99) 288 mg/dL (70-99) 190 mg/dL (70-99) Test 10/06/20 05:50 10/06/20 06:10 White Blood Count 15.1 x10^3/uL (4.0-11.0) Red Blood Count 4.34 x10^6/uL (3.50-5.40) Hemoglobin 11.7 g/dL (12.0-15.5) Hematocrit 36.8 % (36.0-47.0) Mean Corpuscular Volume 85 fL (79-100) Mean Corpuscular Hemoglobin 27 pg (25-35) Mean Corpuscular Hemoglobin Concent 32 g/dL (31-37) Red Cell Distribution Width 14.8 % (11.5-14.5) Platelet Count 317 x10^3/uL (140-400) Neutrophils (%) (Auto) 86 % (31-73) Lymphocytes (%) (Auto) 5 % (24-48) Monocytes (%) (Auto) 8 % (0-9) Eosinophils (%) (Auto) 0 % (0-3) Basophils (%) (Auto) 1 % (0-3) Neutrophils # (Auto) 13.0 x10^3/uL (1.8-7.7) Lymphocytes # (Auto) 0.8 x10^3/uL (1.0-4.8) Monocytes # (Auto) 1.1 x10^3/uL (0.0-1.1) Eosinophils # (Auto) 0.0 x10^3/uL (0.0-0.7) Basophils # (Auto) 0.1 x10^3/uL (0.0-0.2) Sodium Level 144 mmol/L (136-145) Potassium Level 4.5 mmol/L (3.5-5.1) Chloride Level 110 mmol/L (98-107) Carbon Dioxide Level 31 mmol/L (21-32) Anion Gap 3 (6-14) Blood Urea Nitrogen 14 mg/dL (7-20) Creatinine 0.9 mg/dL (0.6-1.0) Estimated GFR (Cockcroft-Gault) 86.2 Glucose Level 187 mg/dL (70-99) Calcium Level 8.7 mg/dL (8.5-10.1) Glucose (Fingerstick) 170 mg/dL (70-99) Laboratory Tests Test 10/05/20 07:59 10/05/20 12:08 10/05/20 18:17 10/06/20 00:23 O2 Saturation 85 % (92-99) Arterial Blood pH 7.39 (7.35-7.45) Arterial Blood pCO2 at Patient Temp 45 mmHg (35-46) Arterial Blood pO2 at Patient Temp 49 mmHg (85-108) Arterial Blood HCO3 27 mmol/L (21-28) Arterial Blood Base Excess 1 mmol/L (-3-3) FiO2 100 Glucose (Fingerstick) 244 mg/dL (70-99) 288 mg/dL (70-99) 190 mg/dL (70-99) Test 10/06/20 05:50 10/06/20 06:10 White Blood Count 15.1 x10^3/uL (4.0-11.0) Red Blood Count 4.34 x10^6/uL (3.50-5.40) Hemoglobin 11.7 g/dL (12.0-15.5) Hematocrit 36.8 % (36.0-47.0) Mean Corpuscular Volume 85 fL (79-100) Mean Corpuscular Hemoglobin 27 pg (25-35) Mean Corpuscular Hemoglobin Concent 32 g/dL (31-37) Red Cell Distribution Width 14.8 % (11.5-14.5) Platelet Count 317 x10^3/uL (140-400) Neutrophils (%) (Auto) 86 % (31-73) Lymphocytes (%) (Auto) 5 % (24-48) Monocytes (%) (Auto) 8 % (0-9) Eosinophils (%) (Auto) 0 % (0-3) Basophils (%) (Auto) 1 % (0-3) Neutrophils # (Auto) 13.0 x10^3/uL (1.8-7.7) Lymphocytes # (Auto) 0.8 x10^3/uL (1.0-4.8) Monocytes # (Auto) 1.1 x10^3/uL (0.0-1.1) Eosinophils # (Auto) 0.0 x10^3/uL (0.0-0.7) Basophils # (Auto) 0.1 x10^3/uL (0.0-0.2) Sodium Level 144 mmol/L (136-145) Potassium Level 4.5 mmol/L (3.5-5.1) Chloride Level 110 mmol/L (98-107) Carbon Dioxide Level 31 mmol/L (21-32) Anion Gap 3 (6-14) Blood Urea Nitrogen 14 mg/dL (7-20) Creatinine 0.9 mg/dL (0.6-1.0) Estimated GFR (Cockcroft-Gault) 86.2 Glucose Level 187 mg/dL (70-99) Calcium Level 8.7 mg/dL (8.5-10.1) Glucose (Fingerstick) 170 mg/dL (70-99) Medications Active Scripts Medications Dose Route/Sig Max Daily Dose Days Date Category Fluoxetine Hcl 60 Mg Tablet 1 Tab PO DAILY 09/30/20 Reported Losartan Potassium 50 Mg Tablet 1 Tab PO DAILY 09/30/20 Reported Hydrochlorothiazide 25 Mg Tablet 1 Tab PO DAILY 09/30/20 Reported Labetalol Hcl 200 Mg Tablet 1 Tab PO BID 12/28/14 Rx Lasix (Furosemide) 20 Mg Tablet 1 Tab PO DAILY 12/28/14 Rx Percocet 5-325 Mg Tablet (Oxycodone/Acetaminophen) 1 Each Tablet 1 Tab PO Q4HRS W/A 12/28/14 Rx Ibuprofen 800 Mg Tablet 800 Mg PO Q6H PRN 12/28/14 Rx Methyldopa 500 Mg Tablet 500 Mg PO QID 12/23/14 Reported Zoloft (Sertraline Hcl) 25 Mg Tablet 25 Mg .ROUTE DAILY 12/23/14 Reported Glyburide 2.5 Mg Tablet 2.5 Mg PO QID 12/23/14 Reported Procardia (Nifedipine) 10 Mg Capsule 60 Mg PO DAILY 12/23/14 Reported Tylenol (Acetaminophen) 325 Mg Tablet 325 Mg PO 08/25/13 Reported Prena1 Plus Combo Pack ( No.39/Iron/Fa #6/Dha) 1 Each Combo..pkg 1 Each PO 08/25/13 Reported Comments cxr 10/06 reviewed, b lat infilt ett too high Chest x-ray reviewed dated 10/03/2020. Extensive bilateral infiltrates. Slightly decreased in the right lower lobe. Impression . IMPRESSION: 1. Acute hypoxic respiratory failure secondary to COVID-19 viral pneumonia/ARDS/acute lung injury.----- worsening,now intubated 10/01/20. Currently on 100% oxygen and 8 of PEEP. 2. Underlying morbid obesity with a BMI of 58, is another main contributing factor to the severity of hypoxia. 3. No significant tobacco history. 4. Abnormal chest x-ray with bilateral interstitial infiltrates consistent with viral pneumonia. 5. electrolyte abnl resolved 6. High-grade fever secondary to COVID-19 viral infection. Plan . Updated 10/06/2020 Continue current vent support 20/500/100/8 uses accessory muscles desat sat 88% will start vec gtt abg reviewed, increase peep to 10 rr to 26 cxr reviewed, advance ett 2 cm t max 103 consult id Continue maximum sedation along with as needed paralytics. Symptomatic treatment of fever Continue IV steroids for full 10-day course, started on 09/30/2020 Continue remdesivir for full course Continue empiric antibiotics, currently on Rocephin and doxycycline Continue tube feeding recommendations DVT/GI prophylaxis:lovenox Discussed with RN and RT dr kohler discussed w patient's brother Thony. continue present aggressive care. Critical care time 30 minutes Updated 10/05/2020 Continue current vent support 20/500/100/8 Continue maximum sedation along with as needed paralytics. Chest x-ray and ABG, make changes as needed Symptomatic treatment of fever Continue IV steroids for full 10-day course, started on 09/30/2020 Continue remdesivir for full course Continue empiric antibiotics, currently on Rocephin and doxycycline Continue tube feeding recommendations DVT/GI prophylaxis:lovenox Discussed with RN and RT I talked to patient's brother Thony. I have updated him about her condition. We will continue present aggressive care. Critical care time 30 minutes Updated 10/04/2020 Continue current vent support 20/500/90/8 Chest x-ray and ABG, make changes as needed Symptomatic treatment of fever Continue IV steroids for full 10-day course, started on 09/30/2020 Continue remdesivir for full course Continue empiric antibiotics, currently on Rocephin and doxycycline Continue tube feeding recommendations DVT/GI prophylaxis:lovenox Discussed with RN and RT Critical care time 30 minutes Updated 10/03/2020 Continue current vent support 20/500/100/8 Chest x-ray and ABG, make changes as needed Symptomatic treatment of fever Continue IV steroids for full 10-day course, started on 09/30/2020 Continue remdesivir for full course Continue empiric antibiotics, currently on Rocephin and doxycycline Continue tube feeding recommendations DVT/GI prophylaxis:lovenox Discussed with RN and RT Critical care time 30 minutes DEMETRICE ODOM MD Oct 06, 2020 06:48
[2020-10-06] MEDS: glyBURIDE 1.25 MG TABLET PO SCH ×3 (07:30→20:42)
[2020-10-06] MEDS: VECURONIUM BROMIDE 50 MG in IV NORMAL SALINE 50ML 50 ML IV PRN ×3 (08:23→19:27)
[2020-10-06] MEDS: fentaNYL HIGH DOSE PCA 55 ML IV PRN (08:23)
[2020-10-06 08:47] LABS: BASE EXCESS ABG 2 mmol/L (-3-3); HCO3 ABG 28 mmol/L (21-28); PCO2 ABG 51 mmHg (35-46); SAT O2 ABG 81 % (92-99)
[2020-10-06 08:49] LABS: PO2 ABG 46 mmHg (85-108)
[2020-10-06] MEDS: ELECTROLYTE (ICU) PROTOCOL. MC SCH (09:00)
--- NOTE | 2020-10-06 10:07 | PDOC ---
[employer] PROGRESS NOTE Date of Service DOS: DATE: 10/06/20 TIME: 10:02 Chief Complaint Chief Complaint Covid 19 pneumonia/ ARDS Viral sepsis Acute hypoxic resp failure Super morbid obesity Extensive pulmonary opacities with areas of consolidation // multilobar pneumonia versus noncardiogenic pulmonary edema from ARDS. plan ADMIT ICU BED Consult pulmonary dvt prophylaxis Vapotherm 40 L 100% with additional 100% nonrebreather, plan intubation 8-16 IV STEROIDS COVID 19 PROTOCOL IV DOXYCYCLINE 100MG BID SERIAL CXR Critically ill History of Present Illness History of Present Illness 34 year old female past medical history hypertension diabetes presented with a chief complaint of shortness of breath. diagnosed with COVID-19 this past Thursday. in er c/o shortness of breath cough fever muscle aches x1 week. //not vaccinated against COVID-19. Patient states over the last 2 days shortness of breath is progressed to become worse. Patient states she cannot catch her breath therefore she called 911. Upon EMS arrival patient's oxygen saturation in the upper 80s on room air. On arrival in ER patient patient on 15 L nonrebreather NOW IN NEED OF INTUBATION FOR Covid 19 pneumonia // Viral sepsis Acute hypoxic resp failure Super morbid obesity CXR C/W Extensive pulmonary opacities with areas of consolidation // multilobar pneumonia versus noncardiogenic pulmonary edema from ARDS. 10/02/2020: Afe low-grade fever in ICU yesterday (99.6 F). Intubated in ICU yesterday, on vent with FiO2 100%, PEEP 8. She was initiated on remdesivir. We will continue treatment with IV steroids and antibiotics. Still hyperglycemic today; will adjust insulin. Appreciate pulmonology recommendations and management patient. Critical care time 30 minutes spent reviewing charts, reviewing labs, examination, discussion with RN. 10/03/2020: Febrile overnight with T-max 101.1 F. On vent with FiO2 100%, PEEP 8. Chest x-ray today showed extensive pulmonary infiltrates again demonstrated with some improved aeration at the left perihilar upper lobe and lingula. Morning labs pending at this time. Continue IV antibiotics. Continue IV Decadron to complete 10-day treatment. Continue supportive care. Critical care time 30 minutes spent reviewing charts, reviewing labs, reviewing imaging, and discussion with RN. 10/04/2020: Febrile overnight with T-max 100.3 F. On ventilator with FiO2 100%, PEEP 8. Last dose of remdesivir today. Continue IV antibiotics. Continue IV Decadron to complete 10-day treatment. Continue supportive care. Critical care time 30 minutes spent reviewing charts, reviewing labs, reviewing imaging, and discussion with RN. 10/05/2020: Afebrile overnight. On vent with FiO2 100%, PEEP 8. She has completed remdesivir. We will continue with IV steroids and IV antibiotics to complete 10-day treatment (last day should be 10/11/2020). Continue supportive care. Critical care time 30 minutes spent reviewing charts, reviewing labs, reviewing imaging, and discussion with RN. 10/06/2020: Febrile overnight with T-max 100.3 F. On vent with FiO2 100%, PEEP 8. WBC 15.1. Continue Tylenol as needed (rectal suppository prn if needed). We will continue with IV steroids and IV antibiotics to complete 10-day treatment (last day should be 10/11/2020). Continue supportive care. Critical care time 30 minutes spent reviewing charts, reviewing labs, reviewing imaging, and discussion with RN. Vitals/I&O Vitals/I&O: Vital Signs Date Time Temp Pulse Resp B/P (MAP) Pulse Ox O2 Delivery O2 Flow Rate FiO2 10/06/20 08:23 22 10/06/20 06:00 96 125/83 (97) 87 Ventilator 10/06/20 04:00 101.9 101.9 I & O 10/05/20 10/05/20 10/06/20 15:00 23:00 07:00 Intake Total 410 ml 1772 ml 2449.6 ml Output Total 160 ml 2870 ml 905 ml Balance 250 ml -1098 ml 1544.6 ml Physical Exam Physical Exam: Visual exam performed under COVID-19 pandemic General: Other (Intubated and sedated) Heart: Regular rate Lungs: Other (Increased work of breathing) Abdomen: Soft, No tenderness Extremities: No clubbing, No cyanosis Skin: No rashes, No breakdown Labs Labs: Laboratory Tests Test 10/05/20 12:08 10/05/20 18:17 10/06/20 00:23 10/06/20 05:50 Glucose (Fingerstick) 244 mg/dL (70-99) 288 mg/dL (70-99) 190 mg/dL (70-99) White Blood Count 15.1 x10^3/uL (4.0-11.0) Red Blood Count 4.34 x10^6/uL (3.50-5.40) Hemoglobin 11.7 g/dL (12.0-15.5) Hematocrit 36.8 % (36.0-47.0) Mean Corpuscular Volume 85 fL (79-100) Mean Corpuscular Hemoglobin 27 pg (25-35) Mean Corpuscular Hemoglobin Concent 32 g/dL (31-37) Red Cell Distribution Width 14.8 % (11.5-14.5) Platelet Count 317 x10^3/uL (140-400) Neutrophils (%) (Auto) 86 % (31-73) Lymphocytes (%) (Auto) 5 % (24-48) Monocytes (%) (Auto) 8 % (0-9) Eosinophils (%) (Auto) 0 % (0-3) Basophils (%) (Auto) 1 % (0-3) Neutrophils # (Auto) 13.0 x10^3/uL (1.8-7.7) Lymphocytes # (Auto) 0.8 x10^3/uL (1.0-4.8) Monocytes # (Auto) 1.1 x10^3/uL (0.0-1.1) Eosinophils # (Auto) 0.0 x10^3/uL (0.0-0.7) Basophils # (Auto) 0.1 x10^3/uL (0.0-0.2) Sodium Level 144 mmol/L (136-145) Potassium Level 4.5 mmol/L (3.5-5.1) Chloride Level 110 mmol/L (98-107) Carbon Dioxide Level 31 mmol/L (21-32) Anion Gap 3 (6-14) Blood Urea Nitrogen 14 mg/dL (7-20) Creatinine 0.9 mg/dL (0.6-1.0) Estimated GFR (Cockcroft-Gault) 86.2 Glucose Level 187 mg/dL (70-99) Calcium Level 8.7 mg/dL (8.5-10.1) Test 10/06/20 06:10 10/06/20 08:00 Glucose (Fingerstick) 170 mg/dL (70-99) O2 Saturation 81 % (92-99) Arterial Blood pH 7.36 (7.35-7.45) Arterial Blood pCO2 at Patient Temp 51 mmHg (35-46) Arterial Blood pO2 at Patient Temp 46 mmHg (85-108) Arterial Blood HCO3 28 mmol/L (21-28) Arterial Blood Base Excess 2 mmol/L (-3-3) Assessment and Plan Assessmemt and Plan Problems Medical Problems: (1) COVID-19 Status: Acute (2) Hypoxia Status: Acute Comment Review of Relevant I have reviewed the following items adryan (where applicable) has been applied. Medications: Current Medications Medications (Trade) Dose Ordered Sig/Vidal Route PRN Reason Start Time Stop Time Status Last Admin Dose Admin Insulin Human Lispro (HumaLOG) 0-9 UNITS Q6HRS SQ 10/05/20 12:00 10/06/20 06:14 Fentanyl Citrate 55 ml @ 0 mls/hr CONT PRN IV SEE PROTOCOL 10/05/20 10:15 10/06/20 08:23 Multi-Ingred Cream/Lotion/Oil/ Oint (Artificial Tears Eye Ointment) 1 rhys PRN Q1HR PRN OU DRY EYE 10/05/20 13:45 10/05/20 17:39 Vecuronium [place] 50 mg/ Sodium Chloride 50 ml @ 8.165 mls/ hr CONT PRN IV SEE I/O RECORD 10/06/20 06:45 10/06/20 08:23 Justifications for Admission Other Justification NINOSKA CARMONA MD Oct 06, 2020 10:07
[2020-10-06] MEDS ORDERED: ACETAMINOPHEN 650 MG SUPP.RECT. PR PRN (10:15)
[2020-10-06] MEDS: FAMOTIDINE 20 MG/2 ML VIAL IVP SCH ×2 (10:57→20:43)
[2020-10-06] MEDS: MULTIVITAMINS,THERAPEUTIC 5 ML ORAL LIQUID. PEG SCH (10:58)
[2020-10-06] MEDS: INSULIN GLARGINE SYRINGE. SQ SCH ×2 (11:01→20:42)
--- NOTE | 2020-10-06 12:13 | RAD ---
XR CHEST 1V History: Reason: Fever, respiratory failure / Spl. Instructions: / History: Comparison: October 04, 2019 Findings: Increased diffuse pulmonary consolidations. No pleural effusion. No pneumothorax. Unchanged enlarged cardiac size. Stable endotracheal tube, enteric tube and right PICC. Impression: 1. Increased diffuse pulmonary consolidations. Electronically signed by: Bertin Briceno DO (10/06/2020 12:11 PM) [id number]
--- NOTE | 2020-10-06 13:07 | CONS ---
DATE OF CONSULTATION: 10/06/2020 REFERRING PHYSICIAN: Ck Donaldson MD. REASON FOR CONSULTATION: Fever in pt with COVID viral pneumonia. HISTORY OF PRESENT ILLNESS: A 34-year-old female with COVID-19, intubated in ICU. The patient presented to the ER on 09/30/2020, with shortness of breath. History obtained from chart and medical staff. The patient was diagnosed with COVID-19 on 09/24/2020. Her shortness of breath,fever, and cough got worse. She was intubated on 09/30. The patient was started on IV ceftriaxone and doxycycline. The patient is morbidly obese, also has history of diabetes and hypertension. The patient was febrile at 101.9 this morning, remains on 100% FiO2. Her O2 needs have increased. Creatinine is about 0.9. Chest x-ray from this morning is pending. ID consultation has been requested for antibiotic management. PAST MEDICAL HISTORY: Morbid obesity, hypertension, diabetes. PAST SURGICAL HISTORY: x 3. SOCIAL HISTORY: Nonsmoker, no alcohol, no drugs. CURRENT MEDICATIONS: Dexamethasone, ceftriaxone, doxycycline and steroids, also received a dose of Levaquin prior to admission. Other medications reviewed in medication list. ALLERGIES: No known drug allergies. REVIEW OF SYSTEMS: Unable to obtain. PHYSICAL EXAMINATION: VITAL SIGNS: Temperature 101.9, pulse 96, respiratory rate 22, blood pressure 125/83, oxygen saturation 82% on 100% FiO2. ABG pO2 was 46, ABG pCO2 is 51, oxygen saturation is 81%. GENERAL: Morbidly obese female, intubated, sedated. HEENT: Normocephalic, atraumatic. Anicteric. ET tube, OGT tube present. NECK: Supple. LUNGS: Coarse breath sounds anteriorly. HEART: S1, S2. No murmurs. ABDOMEN: Obese, soft. Bowel sounds present. GENITOURINARY: Wolf in place. EXTREMITIES: No edema, no cyanosis. DERMATOLOGIC: Warm, dry, no generalized rash. Right upper extremity PICC line looks clean. NEUROLOGIC: Intubated and sedated. PSYCHIATRIC: Unable to assess. LABORATORY DATA: WBC 15.1, hemoglobin 11.7, hematocrit 36.8, platelets 317. Sodium 144, potassium 4.5, chloride 110, bicarbonate 31, BUN 14, creatinine 0.9, glucose 170, calcium 8.7. INR 1.2. MICROBIOLOGY: Blood culture negative from admission. UA not available. IMAGING: Chest x-ray on 10/03, lines and tubes as above, extensive pulmonary infiltrates again demonstrated with some improved aeration of the left perihilar upper lobe and lingula. Chest x-ray from this morning is pending. IMPRESSION: 1. COVID-19 pneumonia. 2. Acute hypoxic respiratory failure secondary to COVID-19.s/p intubation 3. Fever, likely from above but possible secondary bacterial infection cannot be ruled out. 4. Morbid obesity. 5. Diabetes mellitus. 6. Hypertension. 7. Hypokalemia. RECOMMENDATIONS: 1. Change ceftriaxone and doxycyclin to Zosyn and Zyvox. 2. Obtain blood culture, UA and urine culture. 3. Follow up labs and cultures. 4. Continue supportive care. 5. The patient is critically ill. 6. Prognosis guarded Thank you, Dr. Donaldson, for consulting Infectious Disease to participate in this patient's care. If you have any questions, do not hesitate to contact me. Discussed with RN ASHLYN/IGGY/SOT DR: ASHLYN/spencer TID: [id number] DEISYD
[2020-10-06] MEDS: PIPERACILLIN/TAZOBACTAM 3.375 GM in IV NORMAL SALINE 50ML 50 ML IV SCH ×3 (13:31→23:26)
[2020-10-06] MEDS: DEXAMETHASONE SOD PHOS 4 MG/ML VIAL IVP SCH (13:42)
[2020-10-06] MEDS: ASPIRIN CHEWABLE 81 MG TABLET. PO SCH (14:48)
[2020-10-06] MEDS: LINEZOLID 600 MG TABLET PO SCH ×2 (14:51→20:42)
[2020-10-07] VITALS (24 sets, daily range): BP systolic 128–165; BP diastolic 72–93
[2020-10-07] MEDS: DEXMEDETOMIDINE 400 MCG in IV NORMAL SALINE 100ML 96 ML IV PRN ×10 (00:30→23:52)
[2020-10-07] MEDS: INSULIN LISPRO 300 UNITS/3 ML VIAL. SQ SCH ×10 (00:48→23:54)
[2020-10-07] MEDS: fentaNYL HIGH DOSE PCA 55 ML IV PRN ×2 (00:50→19:40)
[2020-10-07] MEDS: MIDAZOLAM 100mg/100ml NS BAG 100 ML IV PRN (00:51)
[2020-10-07] MEDS: VECURONIUM BROMIDE 50 MG in IV NORMAL SALINE 50ML 50 ML IV PRN ×4 (01:27→15:13)
[2020-10-07] MEDS: PROPOFOL 100 ML IV PRN ×10 (02:13→23:52)
[2020-10-07 03:11] LABS: BILIRUBIN,URINE NEGATIVE (NEG); CLARITY,URINE CLOUDY; COLOR,URINE YELLOW; NITRITE,URINE NEGATIVE (NEG); PROTEIN,URINE 30 mg/dL (NEG-TRACE); UROBILINOGEN,URINE 0.2 mg/dL (0.2 mg/dL)
[2020-10-07 03:26] LABS: BACTERIA,URINE FEW /HPF (0-FEW); RBC,URINE TNTC /HPF (0-2); YEAST,URINE PRESENT /HPF
[2020-10-07 05:06] LABS: BASO # 0.1 x10^3/uL (0.0-0.2); BASO % 1 % (0-3); EOS % 0 % (0-3); HEMATOCRIT 34.6 % (36.0-47.0); HEMOGLOBIN 11.3 g/dL (12.0-15.5); LYMPH # 0.9 x10^3/uL (1.0-4.8); LYMPH % 7 % (24-48); MEAN CORPUSCULAR HEMOGLOBIN 27 pg (25-35); MEAN CORPUSCULAR HGB CONC 33 g/dL (31-37); MEAN CORPUSCULAR VOLUME 84 fL (79-100); MONO % 9 % (0-9); NEUT % 84 % (31-73); PLATELET COUNT 268 x10^3/uL (140-400); RED BLOOD COUNT 4.13 x10^6/uL (3.50-5.40); RED CELL DISTRIBUTION WIDTH 14.8 % (11.5-14.5)
--- NOTE | 2020-10-07 05:07 | PDOC ---
PULMONARY PROGRESS NOTES DATE: 10/07/20 TIME: 05:06 Subjective intubated 10/01/20 remains on vent support 100% and PEEP increased to 10 on vec gtt sedated on prop versed fentanyl precedex small ett secretion max T 105 Vitals Vital Signs Date Time Temp Pulse Resp B/P (MAP) Pulse Ox O2 Delivery O2 Flow Rate FiO2 10/07/20 03:00 104 26 141/75 (97) 92 Ventilator 10/07/20 01:20 98.0 10/07/20 00:01 103.1 103.1 Comments Patient seen during pandemic sedated on vent nc at RRR accessory muscle use obese intubated No obvious rash or edema Lungs: Other (Increased work of breathing) Labs Laboratory Tests Test 10/05/20 05:40 10/05/20 05:47 10/05/20 07:59 10/05/20 12:08 White Blood Count 16.7 x10^3/uL (4.0-11.0) Red Blood Count 4.11 x10^6/uL (3.50-5.40) Hemoglobin 11.0 g/dL (12.0-15.5) Hematocrit 34.6 % (36.0-47.0) Mean Corpuscular Volume 84 fL (79-100) Mean Corpuscular Hemoglobin 27 pg (25-35) Mean Corpuscular Hemoglobin Concent 32 g/dL (31-37) Red Cell Distribution Width 14.7 % (11.5-14.5) Platelet Count 283 x10^3/uL (140-400) Neutrophils (%) (Auto) 89 % (31-73) Lymphocytes (%) (Auto) 5 % (24-48) Monocytes (%) (Auto) 6 % (0-9) Eosinophils (%) (Auto) 0 % (0-3) Basophils (%) (Auto) 0 % (0-3) Neutrophils # (Auto) 14.8 x10^3/uL (1.8-7.7) Lymphocytes # (Auto) 0.8 x10^3/uL (1.0-4.8) Monocytes # (Auto) 1.0 x10^3/uL (0.0-1.1) Eosinophils # (Auto) 0.0 x10^3/uL (0.0-0.7) Basophils # (Auto) 0.0 x10^3/uL (0.0-0.2) Sodium Level 140 mmol/L (136-145) Potassium Level 3.9 mmol/L (3.5-5.1) Chloride Level 106 mmol/L (98-107) Carbon Dioxide Level 30 mmol/L (21-32) Anion Gap 4 (6-14) Blood Urea Nitrogen 15 mg/dL (7-20) Creatinine 0.7 mg/dL (0.6-1.0) Estimated GFR (Cockcroft-Gault) 115.2 Glucose Level 199 mg/dL (70-99) Calcium Level 8.2 mg/dL (8.5-10.1) Triglycerides Level 235 mg/dL (0-150) Glucose (Fingerstick) 186 mg/dL (70-99) 244 mg/dL (70-99) O2 Saturation 85 % (92-99) Arterial Blood pH 7.39 (7.35-7.45) Arterial Blood pCO2 at Patient Temp 45 mmHg (35-46) Arterial Blood pO2 at Patient Temp 49 mmHg (85-108) Arterial Blood HCO3 27 mmol/L (21-28) Arterial Blood Base Excess 1 mmol/L (-3-3) FiO2 100 Test 10/05/20 18:17 10/06/20 00:23 10/06/20 05:50 10/06/20 06:10 Glucose (Fingerstick) 288 mg/dL (70-99) 190 mg/dL (70-99) 170 mg/dL (70-99) White Blood Count 15.1 x10^3/uL (4.0-11.0) Red Blood Count 4.34 x10^6/uL (3.50-5.40) Hemoglobin 11.7 g/dL (12.0-15.5) Hematocrit 36.8 % (36.0-47.0) Mean Corpuscular Volume 85 fL (79-100) Mean Corpuscular Hemoglobin 27 pg (25-35) Mean Corpuscular Hemoglobin Concent 32 g/dL (31-37) Red Cell Distribution Width 14.8 % (11.5-14.5) Platelet Count 317 x10^3/uL (140-400) Neutrophils (%) (Auto) 86 % (31-73) Lymphocytes (%) (Auto) 5 % (24-48) Monocytes (%) (Auto) 8 % (0-9) Eosinophils (%) (Auto) 0 % (0-3) Basophils (%) (Auto) 1 % (0-3) Neutrophils # (Auto) 13.0 x10^3/uL (1.8-7.7) Lymphocytes # (Auto) 0.8 x10^3/uL (1.0-4.8) Monocytes # (Auto) 1.1 x10^3/uL (0.0-1.1) Eosinophils # (Auto) 0.0 x10^3/uL (0.0-0.7) Basophils # (Auto) 0.1 x10^3/uL (0.0-0.2) Sodium Level 144 mmol/L (136-145) Potassium Level 4.5 mmol/L (3.5-5.1) Chloride Level 110 mmol/L (98-107) Carbon Dioxide Level 31 mmol/L (21-32) Anion Gap 3 (6-14) Blood Urea Nitrogen 14 mg/dL (7-20) Creatinine 0.9 mg/dL (0.6-1.0) Estimated GFR (Cockcroft-Gault) 86.2 Glucose Level 187 mg/dL (70-99) Calcium Level 8.7 mg/dL (8.5-10.1) Test 10/06/20 08:00 10/06/20 13:46 10/06/20 18:13 10/07/20 00:09 O2 Saturation 81 % (92-99) Arterial Blood pH 7.36 (7.35-7.45) Arterial Blood pCO2 at Patient Temp 51 mmHg (35-46) Arterial Blood pO2 at Patient Temp 46 mmHg (85-108) Arterial Blood HCO3 28 mmol/L (21-28) Arterial Blood Base Excess 2 mmol/L (-3-3) Glucose (Fingerstick) 189 mg/dL (70-99) 231 mg/dL (70-99) 242 mg/dL (70-99) Test 10/07/20 00:32 10/07/20 04:48 Urine Collection Type Unknown Urine Color Yellow Urine Clarity Cloudy Urine pH 6.0 (<5.0-8.0) Urine Specific [place] >=1.030 (1.000-1.030) Urine Protein 30 mg/dL (NEG-TRACE) Urine Glucose (UA) 250 mg/dL (NEG) Urine Ketones (Stick) Negative mg/dL (NEG) Urine Blood Moderate (NEG) Urine Nitrite Negative (NEG) Urine Bilirubin Negative (NEG) Urine Urobilinogen Dipstick 0.2 mg/dL (0.2 mg/dL) Urine Leukocyte Esterase Negative (NEG) Urine RBC Tntc /HPF (0-2) Urine WBC 5-10 /HPF (0-4) Urine Squamous Epithelial Cells Few /LPF Urine Bacteria Few /HPF (0-FEW) Urine Yeast Present /HPF Glucose (Fingerstick) 189 mg/dL (70-99) Laboratory Tests Test 10/06/20 05:50 10/06/20 06:10 10/06/20 08:00 10/06/20 13:46 White Blood Count 15.1 x10^3/uL (4.0-11.0) Red Blood Count 4.34 x10^6/uL (3.50-5.40) Hemoglobin 11.7 g/dL (12.0-15.5) Hematocrit 36.8 % (36.0-47.0) Mean Corpuscular Volume 85 fL (79-100) Mean Corpuscular Hemoglobin 27 pg (25-35) Mean Corpuscular Hemoglobin Concent 32 g/dL (31-37) Red Cell Distribution Width 14.8 % (11.5-14.5) Platelet Count 317 x10^3/uL (140-400) Neutrophils (%) (Auto) 86 % (31-73) Lymphocytes (%) (Auto) 5 % (24-48) Monocytes (%) (Auto) 8 % (0-9) Eosinophils (%) (Auto) 0 % (0-3) Basophils (%) (Auto) 1 % (0-3) Neutrophils # (Auto) 13.0 x10^3/uL (1.8-7.7) Lymphocytes # (Auto) 0.8 x10^3/uL (1.0-4.8) Monocytes # (Auto) 1.1 x10^3/uL (0.0-1.1) Eosinophils # (Auto) 0.0 x10^3/uL (0.0-0.7) Basophils # (Auto) 0.1 x10^3/uL (0.0-0.2) Sodium Level 144 mmol/L (136-145) Potassium Level 4.5 mmol/L (3.5-5.1) Chloride Level 110 mmol/L (98-107) Carbon Dioxide Level 31 mmol/L (21-32) Anion Gap 3 (6-14) Blood Urea Nitrogen 14 mg/dL (7-20) Creatinine 0.9 mg/dL (0.6-1.0) Estimated GFR (Cockcroft-Gault) 86.2 Glucose Level 187 mg/dL (70-99) Calcium Level 8.7 mg/dL (8.5-10.1) Glucose (Fingerstick) 170 mg/dL (70-99) 189 mg/dL (70-99) O2 Saturation 81 % (92-99) Arterial Blood pH 7.36 (7.35-7.45) Arterial Blood pCO2 at Patient Temp 51 mmHg (35-46) Arterial Blood pO2 at Patient Temp 46 mmHg (85-108) Arterial Blood HCO3 28 mmol/L (21-28) Arterial Blood Base Excess 2 mmol/L (-3-3) Test 10/06/20 18:13 10/07/20 00:09 10/07/20 00:32 10/07/20 04:48 Glucose (Fingerstick) 231 mg/dL (70-99) 242 mg/dL (70-99) 189 mg/dL (70-99) Urine Collection Type Unknown Urine Color Yellow Urine Clarity Cloudy Urine pH 6.0 (<5.0-8.0) Urine Specific [place] >=1.030 (1.000-1.030) Urine Protein 30 mg/dL (NEG-TRACE) Urine Glucose (UA) 250 mg/dL (NEG) Urine Ketones (Stick) Negative mg/dL (NEG) Urine Blood Moderate (NEG) Urine Nitrite Negative (NEG) Urine Bilirubin Negative (NEG) Urine Urobilinogen Dipstick 0.2 mg/dL (0.2 mg/dL) Urine Leukocyte Esterase Negative (NEG) Urine RBC Tntc /HPF (0-2) Urine WBC 5-10 /HPF (0-4) Urine Squamous Epithelial Cells Few /LPF Urine Bacteria Few /HPF (0-FEW) Urine Yeast Present /HPF Medications Active Scripts Medications Dose Route/Sig Max Daily Dose Days Date Category Fluoxetine Hcl 60 Mg Tablet 1 Tab PO DAILY 09/30/20 Reported Losartan Potassium 50 Mg Tablet 1 Tab PO DAILY 09/30/20 Reported Hydrochlorothiazide 25 Mg Tablet 1 Tab PO DAILY 09/30/20 Reported Labetalol Hcl 200 Mg Tablet 1 Tab PO BID 12/28/14 Rx Lasix (Furosemide) 20 Mg Tablet 1 Tab PO DAILY 12/28/14 Rx Percocet 5-325 Mg Tablet (Oxycodone/Acetaminophen) 1 Each Tablet 1 Tab PO Q4HRS W/A 12/28/14 Rx Ibuprofen 800 Mg Tablet 800 Mg PO Q6H PRN 12/28/14 Rx Methyldopa 500 Mg Tablet 500 Mg PO QID 12/23/14 Reported Zoloft (Sertraline Hcl) 25 Mg Tablet 25 Mg .ROUTE DAILY 12/23/14 Reported Glyburide 2.5 Mg Tablet 2.5 Mg PO QID 12/23/14 Reported Procardia (Nifedipine) 10 Mg Capsule 60 Mg PO DAILY 12/23/14 Reported Tylenol (Acetaminophen) 325 Mg Tablet 325 Mg PO 08/25/13 Reported Prena1 Plus Combo Pack ( No.39/Iron/Fa #6/Dha) 1 Each Combo..pkg 1 Each PO 08/25/13 Reported Comments cxr 10/06 reviewed, b lat infilt increased ett too high Chest x-ray reviewed dated 10/03/2020. Extensive bilateral infiltrates. Slightly decreased in the right lower lobe. Impression . IMPRESSION: 1. Acute hypoxic respiratory failure secondary to COVID-19 viral pneumonia/ARDS/acute lung injury.----- worsening,now intubated 10/01/20. Currently on 100% oxygen and 8 of PEEP. 2. Underlying morbid obesity with a BMI of 58, is another main contributing factor to the severity of hypoxia. 3. No significant tobacco history. 4. Abnormal chest x-ray with bilateral interstitial infiltrates consistent with viral pneumonia. 5. electrolyte abnl resolved 6. High-grade fever secondary to COVID-19 viral infection. Plan . Updated 10/07/2020 Continue current vent support 26/500/100/10 vec gtt started 10/06 titrate peep fio2 as tolerated cxr reviewed, advanced ett 2 cm on 10/06 t max 105 id on case abx changed to zosyn zyvox micafungin added today fu cxs Continue maximum sedation along and paralytics. Symptomatic treatment of fever Continue IV steroids for full 10-day course, started on 09/30/2020 Continue remdesivir for full course Continue tube feeding recommendations DVT/GI prophylaxis:lovenox Discussed with RN and RT dr kohler discussed w patient's brother Thony. continue present aggressive care. critically ill Critical care time 30 minutes no overlap Updated 10/06/2020 Continue current vent support 20/500/100/8 uses accessory muscles desat sat 88% will start vec gtt abg reviewed, increase peep to 10 rr to 26 cxr reviewed, advance ett 2 cm t max 103 consult id Continue maximum sedation along with as needed paralytics. Symptomatic treatment of fever Continue IV steroids for full 10-day course, started on 09/30/2020 Continue remdesivir for full course Continue empiric antibiotics, currently on Rocephin and doxycycline Continue tube feeding recommendations DVT/GI prophylaxis:lovenox Discussed with RN and RT dr kohler discussed w patient's brother Thony. continue present aggressive care. Critical care time 30 minutes Updated 10/05/2020 Continue current vent support 20/500/100/8 Continue maximum sedation along with as needed paralytics. Chest x-ray and ABG, make changes as needed Symptomatic treatment of fever Continue IV steroids for full 10-day course, started on 09/30/2020 Continue remdesivir for full course Continue empiric antibiotics, currently on Rocephin and doxycycline Continue tube feeding recommendations DVT/GI prophylaxis:lovenox Discussed with RN and RT I talked to patient's brother Thony. I have updated him about her condition. We will continue present aggressive care. Critical care time 30 minutes Updated 10/04/2020 Continue current vent support 20/500/90/8 Chest x-ray and ABG, make changes as needed Symptomatic treatment of fever Continue IV steroids for full 10-day course, started on 09/30/2020 Continue remdesivir for full course Continue empiric antibiotics, currently on Rocephin and doxycycline Continue tube feeding recommendations DVT/GI prophylaxis:lovenox Discussed with RN and RT Critical care time 30 minutes Updated 10/03/2020 Continue current vent support 20/500/100/8 Chest x-ray and ABG, make changes as needed Symptomatic treatment of fever Continue IV steroids for full 10-day course, started on 09/30/2020 Continue remdesivir for full course Continue empiric antibiotics, currently on Rocephin and doxycycline Continue tube feeding recommendations DVT/GI prophylaxis:lovenox Discussed with RN and RT Critical care time 30 minutes DEMETRICE ODOM MD Oct 07, 2020 05:06
[2020-10-07 05:29] LABS: CALCIUM 8.5 mg/dL (8.5-10.1); CREATININE 0.9 mg/dL (0.6-1.0); GFR 86.2; POTASSIUM 4.6 mmol/L (3.5-5.1)
[2020-10-07] MEDS: PIPERACILLIN/TAZOBACTAM 3.375 GM in IV NORMAL SALINE 50ML 50 ML IV SCH ×4 (05:54→23:52)
[2020-10-07] MEDS: ACETAMINOPHEN 650 MG/20.3 ML SOLUTION. PEG PRN ×3 (06:01→18:07)
[2020-10-07 08:04] LABS: BASE EXCESS ABG 4 mmol/L (-3-3); CORRECTED PCO2 ABG 50 mmHg; CORRECTED PH ABG 7.39; CORRECTED PO2 ABG 75 mmHg; HCO3 ABG 29 mmol/L (21-28); PCO2 ABG 44 mmHg (35-46); PO2 ABG 60 mmHg (85-108); SAT O2 ABG 91 % (92-99)
[2020-10-07] MEDS: ELECTROLYTE (ICU) PROTOCOL. MC SCH (09:00)
--- NOTE | 2020-10-07 09:05 | PDOC ---
Infectious Disease Note Subjective: Subjective Patient intubated, sedated Temperature 105.2 F On cooling blanket Discussed with nursing staff Vital Signs: Vital Signs Vital Signs Date Time Temp Pulse Resp B/P (MAP) Pulse Ox O2 Delivery O2 Flow Rate FiO2 10/07/20 07:35 93 Ventilator 10/07/20 06:00 103 26 143/76 (98) 10/07/20 04:00 104.9 104.9 10/07/20 01:20 98.0 Physical Exam: PHYSICAL EXAM GENERAL: Morbidly obese female, intubated, sedated. On cooling blanket HEENT: Normocephalic, atraumatic. Anicteric. ET tube, OGT tube present. NECK: Supple. LUNGS: Coarse breath sounds anteriorly. HEART: S1, S2. No murmurs. ABDOMEN: Obese, soft. Bowel sounds present. GENITOURINARY: Wolf in place. EXTREMITIES: No edema, no cyanosis. DERMATOLOGIC: Warm, dry, no generalized rash. NEUROLOGIC: Intubated and sedated. PSYCHIATRIC: Unable to assess. Right upper extremity PICC line looks clean. Medications: Inpatient Meds: Medications reviewed. Labs: Lab Laboratory Tests Test 10/06/20 13:46 10/06/20 18:13 10/07/20 00:09 10/07/20 00:32 Glucose (Fingerstick) 189 mg/dL (70-99) 231 mg/dL (70-99) 242 mg/dL (70-99) Urine Collection Type Unknown Urine Color Yellow Urine Clarity Cloudy Urine pH 6.0 (<5.0-8.0) Urine Specific [place] >=1.030 (1.000-1.030) Urine Protein 30 mg/dL (NEG-TRACE) Urine Glucose (UA) 250 mg/dL (NEG) Urine Ketones (Stick) Negative mg/dL (NEG) Urine Blood Moderate (NEG) Urine Nitrite Negative (NEG) Urine Bilirubin Negative (NEG) Urine Urobilinogen Dipstick 0.2 mg/dL (0.2 mg/dL) Urine Leukocyte Esterase Negative (NEG) Urine RBC Tntc /HPF (0-2) Urine WBC 5-10 /HPF (0-4) Urine Squamous Epithelial Cells Few /LPF Urine Bacteria Few /HPF (0-FEW) Urine Yeast Present /HPF Test 10/07/20 04:45 10/07/20 04:48 10/07/20 07:35 White Blood Count 12.0 x10^3/uL (4.0-11.0) Red Blood Count 4.13 x10^6/uL (3.50-5.40) Hemoglobin 11.3 g/dL (12.0-15.5) Hematocrit 34.6 % (36.0-47.0) Mean Corpuscular Volume 84 fL (79-100) Mean Corpuscular Hemoglobin 27 pg (25-35) Mean Corpuscular Hemoglobin Concent 33 g/dL (31-37) Red Cell Distribution Width 14.8 % (11.5-14.5) Platelet Count 268 x10^3/uL (140-400) Neutrophils (%) (Auto) 84 % (31-73) Lymphocytes (%) (Auto) 7 % (24-48) Monocytes (%) (Auto) 9 % (0-9) Eosinophils (%) (Auto) 0 % (0-3) Basophils (%) (Auto) 1 % (0-3) Neutrophils # (Auto) 10.0 x10^3/uL (1.8-7.7) Lymphocytes # (Auto) 0.9 x10^3/uL (1.0-4.8) Monocytes # (Auto) 1.0 x10^3/uL (0.0-1.1) Eosinophils # (Auto) 0.0 x10^3/uL (0.0-0.7) Basophils # (Auto) 0.1 x10^3/uL (0.0-0.2) Sodium Level 143 mmol/L (136-145) Potassium Level 4.6 mmol/L (3.5-5.1) Chloride Level 109 mmol/L (98-107) Carbon Dioxide Level 30 mmol/L (21-32) Anion Gap 4 (6-14) Blood Urea Nitrogen 16 mg/dL (7-20) Creatinine 0.9 mg/dL (0.6-1.0) Estimated GFR (Cockcroft-Gault) 86.2 Glucose Level 212 mg/dL (70-99) Calcium Level 8.5 mg/dL (8.5-10.1) Ferritin 202 ng/mL (8-252) Glucose (Fingerstick) 189 mg/dL (70-99) O2 Saturation 91 % (92-99) Arterial Blood pH 7.44 (7.35-7.45) Arterial Blood pH (Temp corrected) 7.39 Arterial Blood pCO2 at Patient Temp 44 mmHg (35-46) Arterial Blood pCO2 (Temp correct) 50 mmHg Arterial Blood pO2 at Patient Temp 60 mmHg (85-108) Arterial Blood pO2 (Temp corrected) 75 mmHg Arterial Blood HCO3 29 mmol/L (21-28) Arterial Blood Base Excess 4 mmol/L (-3-3) Objective: Assessment: Fever of 105.2 F likely from COVID 1. COVID-19 pneumonia. Status post remdesivir, on steroids 2. Acute hypoxic respiratory failure secondary to COVID-19.s/p intubation 3. Abnormal LFTs likely from COVID 4. Morbid obesity. 5. Diabetes mellitus. 6. Hypertension. 7. Hypokalemia. Plan: Plan of Care Zosyn and Zyvox. Add micafungin Check ferritin, CRP greater than 100, LDH 554 Actemra or other immuno modulators treatment are not available per pharmacy Follow up labs and cultures. Continue supportive care. Critically ill. Prognosis guarded DENYS KHALIL MD Oct 07, 2020 09:05
--- NOTE | 2020-10-07 09:26 | PDOC ---
[employer] PROGRESS NOTE Date of Service DOS: DATE: 10/07/20 TIME: 09:22 Chief Complaint Chief Complaint Covid 19 pneumonia/ ARDS Viral sepsis Acute hypoxic resp failure Super morbid obesity Extensive pulmonary opacities with areas of consolidation // multilobar pneumonia versus noncardiogenic pulmonary edema from ARDS. plan ADMIT ICU BED Consult pulmonary dvt prophylaxis Vapotherm 40 L 100% with additional 100% nonrebreather, plan intubation 8-16 IV STEROIDS COVID 19 PROTOCOL IV DOXYCYCLINE 100MG BID SERIAL CXR Critically ill History of Present Illness History of Present Illness 34 year old female past medical history hypertension diabetes presented with a chief complaint of shortness of breath. diagnosed with COVID-19 this past Thursday. in er c/o shortness of breath cough fever muscle aches x1 week. //not vaccinated against COVID-19. Patient states over the last 2 days shortness of breath is progressed to become worse. Patient states she cannot catch her breath therefore she called 911. Upon EMS arrival patient's oxygen saturation in the upper 80s on room air. On arrival in ER patient patient on 15 L nonrebreather NOW IN NEED OF INTUBATION FOR Covid 19 pneumonia // Viral sepsis Acute hypoxic resp failure Super morbid obesity CXR C/W Extensive pulmonary opacities with areas of consolidation // multilobar pneumonia versus noncardiogenic pulmonary edema from ARDS. 10/02/2020: Afe low-grade fever in ICU yesterday (99.6 F). Intubated in ICU yesterday, on vent with FiO2 100%, PEEP 8. She was initiated on remdesivir. We will continue treatment with IV steroids and antibiotics. Still hyperglycemic today; will adjust insulin. Appreciate pulmonology recommendations and management patient. Critical care time 30 minutes spent reviewing charts, reviewing labs, examination, discussion with RN. 10/03/2020: Febrile overnight with T-max 101.1 F. On vent with FiO2 100%, PEEP 8. Chest x-ray today showed extensive pulmonary infiltrates again demonstrated with some improved aeration at the left perihilar upper lobe and lingula. Morning labs pending at this time. Continue IV antibiotics. Continue IV Decadron to complete 10-day treatment. Continue supportive care. Critical care time 30 minutes spent reviewing charts, reviewing labs, reviewing imaging, and discussion with RN. 10/04/2020: Febrile overnight with T-max 100.3 F. On ventilator with FiO2 100%, PEEP 8. Last dose of remdesivir today. Continue IV antibiotics. Continue IV Decadron to complete 10-day treatment. Continue supportive care. Critical care time 30 minutes spent reviewing charts, reviewing labs, reviewing imaging, and discussion with RN. 10/05/2020: Afebrile overnight. On vent with FiO2 100%, PEEP 8. She has completed remdesivir. We will continue with IV steroids and IV antibiotics to complete 10-day treatment (last day should be 10/11/2020). Continue supportive care. Critical care time 30 minutes spent reviewing charts, reviewing labs, reviewing imaging, and discussion with RN. 10/06/2020: Febrile overnight with T-max 100.3 F. On vent with FiO2 100%, PEEP 8. WBC 15.1. Continue Tylenol as needed (rectal suppository prn if needed). We will continue with IV steroids and IV antibiotics to complete 10-day treatment (last day should be 10/11/2020). Continue supportive care. Critical care time 30 minutes spent reviewing charts, reviewing labs, reviewing imaging, and discussion with RN. 10/07/2020: Febrile overnight with T-max 104.9 F. CRP significantly elevated. Discussed with pharmacy, no abdominal available at this time. Continue Tylenol as needed (rectal suppository prn if needed). Cooling blanket as needed. Chest x-ray yesterday showed increased diffuse pulmonary consolidations. Will continue with IV steroids and IV antibiotics to complete 10-day treatment (last day should be 10/11/2020). Continue supportive care. Critical care time 30 minutes spent reviewing charts, reviewing labs, reviewing imaging, and discussion with RN. Vitals/I&O Vitals/I&O: Vital Signs Date Time Temp Pulse Resp B/P (MAP) Pulse Ox O2 Delivery O2 Flow Rate FiO2 10/07/20 07:35 93 Ventilator 10/07/20 06:00 103 26 143/76 (98) 10/07/20 04:00 104.9 104.9 10/07/20 01:20 98.0 I & O 10/06/20 10/06/20 10/07/20 15:00 23:00 07:00 Intake Total 390 ml 3020 ml 2658.6 ml Output Total 475 ml 410 ml 540 ml Balance -85 ml 2610 ml 2118.6 ml Physical Exam Physical Exam: GENERAL: Morbidly obese female, intubated, sedated. On cooling blanket HEENT: Normocephalic, atraumatic. Anicteric. ET tube, OGT tube present. NECK: Supple. LUNGS: Coarse breath sounds anteriorly. HEART: S1, S2. No murmurs. ABDOMEN: Obese, soft. Bowel sounds present. GENITOURINARY: Wolf in place. EXTREMITIES: No edema, no cyanosis. DERMATOLOGIC: Warm, dry, no generalized rash. NEUROLOGIC: Intubated and sedated. PSYCHIATRIC: Unable to assess. Right upper extremity PICC line looks clean. General: Other (Intubated and sedated) Heart: Regular rate Lungs: Other (Increased work of breathing) Abdomen: Soft, No tenderness Extremities: No clubbing, No cyanosis Skin: No rashes, No breakdown Labs Labs: Laboratory Tests Test 10/06/20 13:46 10/06/20 18:13 10/07/20 00:09 10/07/20 00:32 Glucose (Fingerstick) 189 mg/dL (70-99) 231 mg/dL (70-99) 242 mg/dL (70-99) Urine Collection Type Unknown Urine Color Yellow Urine Clarity Cloudy Urine pH 6.0 (<5.0-8.0) Urine Specific [place] >=1.030 (1.000-1.030) Urine Protein 30 mg/dL (NEG-TRACE) Urine Glucose (UA) 250 mg/dL (NEG) Urine Ketones (Stick) Negative mg/dL (NEG) Urine Blood Moderate (NEG) Urine Nitrite Negative (NEG) Urine Bilirubin Negative (NEG) Urine Urobilinogen Dipstick 0.2 mg/dL (0.2 mg/dL) Urine Leukocyte Esterase Negative (NEG) Urine RBC Tntc /HPF (0-2) Urine WBC 5-10 /HPF (0-4) Urine Squamous Epithelial Cells Few /LPF Urine Bacteria Few /HPF (0-FEW) Urine Yeast Present /HPF Test 10/07/20 04:45 10/07/20 04:48 10/07/20 07:35 White Blood Count 12.0 x10^3/uL (4.0-11.0) Red Blood Count 4.13 x10^6/uL (3.50-5.40) Hemoglobin 11.3 g/dL (12.0-15.5) Hematocrit 34.6 % (36.0-47.0) Mean Corpuscular Volume 84 fL (79-100) Mean Corpuscular Hemoglobin 27 pg (25-35) Mean Corpuscular Hemoglobin Concent 33 g/dL (31-37) Red Cell Distribution Width 14.8 % (11.5-14.5) Platelet Count 268 x10^3/uL (140-400) Neutrophils (%) (Auto) 84 % (31-73) Lymphocytes (%) (Auto) 7 % (24-48) Monocytes (%) (Auto) 9 % (0-9) Eosinophils (%) (Auto) 0 % (0-3) Basophils (%) (Auto) 1 % (0-3) Neutrophils # (Auto) 10.0 x10^3/uL (1.8-7.7) Lymphocytes # (Auto) 0.9 x10^3/uL (1.0-4.8) Monocytes # (Auto) 1.0 x10^3/uL (0.0-1.1) Eosinophils # (Auto) 0.0 x10^3/uL (0.0-0.7) Basophils # (Auto) 0.1 x10^3/uL (0.0-0.2) Sodium Level 143 mmol/L (136-145) Potassium Level 4.6 mmol/L (3.5-5.1) Chloride Level 109 mmol/L (98-107) Carbon Dioxide Level 30 mmol/L (21-32) Anion Gap 4 (6-14) Blood Urea Nitrogen 16 mg/dL (7-20) Creatinine 0.9 mg/dL (0.6-1.0) Estimated GFR (Cockcroft-Gault) 86.2 Glucose Level 212 mg/dL (70-99) Calcium Level 8.5 mg/dL (8.5-10.1) Ferritin 202 ng/mL (8-252) Glucose (Fingerstick) 189 mg/dL (70-99) O2 Saturation 91 % (92-99) Arterial Blood pH 7.44 (7.35-7.45) Arterial Blood pH (Temp corrected) 7.39 Arterial Blood pCO2 at Patient Temp 44 mmHg (35-46) Arterial Blood pCO2 (Temp correct) 50 mmHg Arterial Blood pO2 at Patient Temp 60 mmHg (85-108) Arterial Blood pO2 (Temp corrected) 75 mmHg Arterial Blood HCO3 29 mmol/L (21-28) Arterial Blood Base Excess 4 mmol/L (-3-3) Assessment and Plan Assessmemt and Plan Problems Medical Problems: (1) COVID-19 Status: Acute (2) Hypoxia Status: Acute Comment Review of Relevant I have reviewed the following items adryan (where applicable) has been applied. Medications: Current Medications Medications (Trade) Dose Ordered Sig/Vidal Route PRN Reason Start Time Stop Time Status Last Admin Dose Admin Piperacillin Sod/ Tazobactam Sod 3.375 gm/Sodium Chloride 50 ml @ 100 mls/hr Q6HRS IV 10/06/20 12:00 10/07/20 05:54 Linezolid (Zyvox) 600 mg BID PO 10/06/20 12:00 10/07/20 09:20 DC 10/06/20 20:42 Justifications for Admission Other Justification NINOSKA CARMONA MD Oct 07, 2020 09:26
[2020-10-07] MEDS: MICAFUNGIN 100 MG in IV DEXTROSE 5% 100ML 100 ML IV SCH (09:37)
[2020-10-07] MEDS: ASPIRIN CHEWABLE 81 MG TABLET. PO SCH (09:38)
[2020-10-07] MEDS: MULTIVITAMINS,THERAPEUTIC 5 ML ORAL LIQUID. PEG SCH (09:38)
[2020-10-07] MEDS: FAMOTIDINE 20 MG/2 ML VIAL IVP SCH ×2 (09:38→20:28)
[2020-10-07] MEDS: glyBURIDE 1.25 MG TABLET PO SCH ×3 (09:38→21:00)
[2020-10-07] MEDS: INSULIN GLARGINE SYRINGE. SQ SCH ×2 (09:42→20:30)
[2020-10-07] MEDS: DEXAMETHASONE SOD PHOS 4 MG/ML VIAL IVP SCH (09:43)
[2020-10-07] MEDS: DOXYCYCLINE HYCLATE 100 MG TABLET PO SCH ×2 (09:47→20:28)
[2020-10-08] VITALS (24 sets, daily range): BP systolic 117–158; BP diastolic 74–99
[2020-10-08] MEDS: VECURONIUM BROMIDE 50 MG in IV NORMAL SALINE 50ML 50 ML IV PRN ×3 (01:27→21:11)
[2020-10-08] MEDS: MIDAZOLAM 100mg/100ml NS BAG 100 ML IV PRN ×2 (01:29→12:12)
[2020-10-08] MEDS: PROPOFOL 100 ML IV PRN ×10 (02:18→22:10)
[2020-10-08] MEDS: DEXMEDETOMIDINE 400 MCG in IV NORMAL SALINE 100ML 96 ML IV PRN ×8 (03:59→22:58)
[2020-10-08] MEDS: PIPERACILLIN/TAZOBACTAM 3.375 GM in IV NORMAL SALINE 50ML 50 ML IV SCH ×3 (05:22→17:18)
[2020-10-08 05:37] LABS: BASO # 0.1 x10^3/uL (0.0-0.2); BASO % 1 % (0-3); EOS # 0.1 x10^3/uL (0.0-0.7); EOS % 1 % (0-3); HEMATOCRIT 33.8 % (36.0-47.0); HEMOGLOBIN 11.1 g/dL (12.0-15.5); LYMPH % 9 % (24-48); MEAN CORPUSCULAR HEMOGLOBIN 27 pg (25-35); MEAN CORPUSCULAR HGB CONC 33 g/dL (31-37); MEAN CORPUSCULAR VOLUME 83 fL (79-100); MONO # 0.8 x10^3/uL (0.0-1.1); MONO % 6 % (0-9); NEUT # 10.3 x10^3/uL (1.8-7.7); NEUT % 84 % (31-73); PLATELET COUNT 235 x10^3/uL (140-400); RED BLOOD COUNT 4.06 x10^6/uL (3.50-5.40); RED CELL DISTRIBUTION WIDTH 14.8 % (11.5-14.5); WHITE BLOOD COUNT 12.3 x10^3/uL (4.0-11.0)
[2020-10-08 05:42] LABS: CALCIUM 8.4 mg/dL (8.5-10.1); CREATININE 0.7 mg/dL (0.6-1.0); GFR 115.2; POTASSIUM 4.4 mmol/L (3.5-5.1)
[2020-10-08] MEDS: INSULIN LISPRO 300 UNITS/3 ML VIAL. SQ SCH ×6 (06:10→17:33)
--- NOTE | 2020-10-08 06:20 | PDOC ---
PULMONARY PROGRESS NOTES DATE: 10/08/20 TIME: 06:15 Subjective intubated 10/01/20 Fever overnight Remains on vent support 100% and PEEP of 10 On vecuronium drip No overnight concerns from nursing Vitals Vital Signs Date Time Temp Pulse Resp B/P (MAP) Pulse Ox O2 Delivery O2 Flow Rate FiO2 10/08/20 06:00 90 26 136/88 (104) 100 Ventilator 10/08/20 04:00 100.9 100.9 Comments Patient seen during sedated on vent nc at RRR accessory muscle use obese intubated No obvious rash or edema Lungs: Other (Increased work of breathing) Labs Laboratory Tests Test 10/06/20 08:00 10/06/20 13:46 10/06/20 18:13 10/07/20 00:09 O2 Saturation 81 % (92-99) Arterial Blood pH 7.36 (7.35-7.45) Arterial Blood pCO2 at Patient Temp 51 mmHg (35-46) Arterial Blood pO2 at Patient Temp 46 mmHg (85-108) Arterial Blood HCO3 28 mmol/L (21-28) Arterial Blood Base Excess 2 mmol/L (-3-3) Glucose (Fingerstick) 189 mg/dL (70-99) 231 mg/dL (70-99) 242 mg/dL (70-99) Test 10/07/20 00:32 10/07/20 04:45 10/07/20 04:48 10/07/20 07:35 Urine Collection Type Unknown Urine Color Yellow Urine Clarity Cloudy Urine pH 6.0 (<5.0-8.0) Urine Specific [place] >=1.030 (1.000-1.030) Urine Protein 30 mg/dL (NEG-TRACE) Urine Glucose (UA) 250 mg/dL (NEG) Urine Ketones (Stick) Negative mg/dL (NEG) Urine Blood Moderate (NEG) Urine Nitrite Negative (NEG) Urine Bilirubin Negative (NEG) Urine Urobilinogen Dipstick 0.2 mg/dL (0.2 mg/dL) Urine Leukocyte Esterase Negative (NEG) Urine RBC Tntc /HPF (0-2) Urine WBC 5-10 /HPF (0-4) Urine Squamous Epithelial Cells Few /LPF Urine Bacteria Few /HPF (0-FEW) Urine Yeast Present /HPF White Blood Count 12.0 x10^3/uL (4.0-11.0) Red Blood Count 4.13 x10^6/uL (3.50-5.40) Hemoglobin 11.3 g/dL (12.0-15.5) Hematocrit 34.6 % (36.0-47.0) Mean Corpuscular Volume 84 fL (79-100) Mean Corpuscular Hemoglobin 27 pg (25-35) Mean Corpuscular Hemoglobin Concent 33 g/dL (31-37) Red Cell Distribution Width 14.8 % (11.5-14.5) Platelet Count 268 x10^3/uL (140-400) Neutrophils (%) (Auto) 84 % (31-73) Lymphocytes (%) (Auto) 7 % (24-48) Monocytes (%) (Auto) 9 % (0-9) Eosinophils (%) (Auto) 0 % (0-3) Basophils (%) (Auto) 1 % (0-3) Neutrophils # (Auto) 10.0 x10^3/uL (1.8-7.7) Lymphocytes # (Auto) 0.9 x10^3/uL (1.0-4.8) Monocytes # (Auto) 1.0 x10^3/uL (0.0-1.1) Eosinophils # (Auto) 0.0 x10^3/uL (0.0-0.7) Basophils # (Auto) 0.1 x10^3/uL (0.0-0.2) Sodium Level 143 mmol/L (136-145) Potassium Level 4.6 mmol/L (3.5-5.1) Chloride Level 109 mmol/L (98-107) Carbon Dioxide Level 30 mmol/L (21-32) Anion Gap 4 (6-14) Blood Urea Nitrogen 16 mg/dL (7-20) Creatinine 0.9 mg/dL (0.6-1.0) Estimated GFR (Cockcroft-Gault) 86.2 Glucose Level 212 mg/dL (70-99) Calcium Level 8.5 mg/dL (8.5-10.1) Ferritin 202 ng/mL (8-252) Glucose (Fingerstick) 189 mg/dL (70-99) O2 Saturation 91 % (92-99) Arterial Blood pH 7.44 (7.35-7.45) Arterial Blood pH (Temp corrected) 7.39 Arterial Blood pCO2 at Patient Temp 44 mmHg (35-46) Arterial Blood pCO2 (Temp correct) 50 mmHg Arterial Blood pO2 at Patient Temp 60 mmHg (85-108) Arterial Blood pO2 (Temp corrected) 75 mmHg Arterial Blood HCO3 29 mmol/L (21-28) Arterial Blood Base Excess 4 mmol/L (-3-3) Test 10/07/20 12:19 10/07/20 17:52 10/07/20 23:40 10/08/20 05:15 Glucose (Fingerstick) 208 mg/dL (70-99) 257 mg/dL (70-99) 239 mg/dL (70-99) White Blood Count 12.3 x10^3/uL (4.0-11.0) Red Blood Count 4.06 x10^6/uL (3.50-5.40) Hemoglobin 11.1 g/dL (12.0-15.5) Hematocrit 33.8 % (36.0-47.0) Mean Corpuscular Volume 83 fL (79-100) Mean Corpuscular Hemoglobin 27 pg (25-35) Mean Corpuscular Hemoglobin Concent 33 g/dL (31-37) Red Cell Distribution Width 14.8 % (11.5-14.5) Platelet Count 235 x10^3/uL (140-400) Neutrophils (%) (Auto) 84 % (31-73) Lymphocytes (%) (Auto) 9 % (24-48) Monocytes (%) (Auto) 6 % (0-9) Eosinophils (%) (Auto) 1 % (0-3) Basophils (%) (Auto) 1 % (0-3) Neutrophils # (Auto) 10.3 x10^3/uL (1.8-7.7) Lymphocytes # (Auto) 1.0 x10^3/uL (1.0-4.8) Monocytes # (Auto) 0.8 x10^3/uL (0.0-1.1) Eosinophils # (Auto) 0.1 x10^3/uL (0.0-0.7) Basophils # (Auto) 0.1 x10^3/uL (0.0-0.2) Sodium Level 138 mmol/L (136-145) Potassium Level 4.4 mmol/L (3.5-5.1) Chloride Level 105 mmol/L (98-107) Carbon Dioxide Level 29 mmol/L (21-32) Anion Gap 4 (6-14) Blood Urea Nitrogen 14 mg/dL (7-20) Creatinine 0.7 mg/dL (0.6-1.0) Estimated GFR (Cockcroft-Gault) 115.2 Glucose Level 213 mg/dL (70-99) Calcium Level 8.4 mg/dL (8.5-10.1) Laboratory Tests Test 10/07/20 07:35 10/07/20 12:19 10/07/20 17:52 10/07/20 23:40 O2 Saturation 91 % (92-99) Arterial Blood pH 7.44 (7.35-7.45) Arterial Blood pH (Temp corrected) 7.39 Arterial Blood pCO2 at Patient Temp 44 mmHg (35-46) Arterial Blood pCO2 (Temp correct) 50 mmHg Arterial Blood pO2 at Patient Temp 60 mmHg (85-108) Arterial Blood pO2 (Temp corrected) 75 mmHg Arterial Blood HCO3 29 mmol/L (21-28) Arterial Blood Base Excess 4 mmol/L (-3-3) Glucose (Fingerstick) 208 mg/dL (70-99) 257 mg/dL (70-99) 239 mg/dL (70-99) Test 10/08/20 05:15 White Blood Count 12.3 x10^3/uL (4.0-11.0) Red Blood Count 4.06 x10^6/uL (3.50-5.40) Hemoglobin 11.1 g/dL (12.0-15.5) Hematocrit 33.8 % (36.0-47.0) Mean Corpuscular Volume 83 fL (79-100) Mean Corpuscular Hemoglobin 27 pg (25-35) Mean Corpuscular Hemoglobin Concent 33 g/dL (31-37) Red Cell Distribution Width 14.8 % (11.5-14.5) Platelet Count 235 x10^3/uL (140-400) Neutrophils (%) (Auto) 84 % (31-73) Lymphocytes (%) (Auto) 9 % (24-48) Monocytes (%) (Auto) 6 % (0-9) Eosinophils (%) (Auto) 1 % (0-3) Basophils (%) (Auto) 1 % (0-3) Neutrophils # (Auto) 10.3 x10^3/uL (1.8-7.7) Lymphocytes # (Auto) 1.0 x10^3/uL (1.0-4.8) Monocytes # (Auto) 0.8 x10^3/uL (0.0-1.1) Eosinophils # (Auto) 0.1 x10^3/uL (0.0-0.7) Basophils # (Auto) 0.1 x10^3/uL (0.0-0.2) Sodium Level 138 mmol/L (136-145) Potassium Level 4.4 mmol/L (3.5-5.1) Chloride Level 105 mmol/L (98-107) Carbon Dioxide Level 29 mmol/L (21-32) Anion Gap 4 (6-14) Blood Urea Nitrogen 14 mg/dL (7-20) Creatinine 0.7 mg/dL (0.6-1.0) Estimated GFR (Cockcroft-Gault) 115.2 Glucose Level 213 mg/dL (70-99) Calcium Level 8.4 mg/dL (8.5-10.1) Medications Active Scripts Medications Dose Route/Sig Max Daily Dose Days Date Category Fluoxetine Hcl 60 Mg Tablet 1 Tab PO DAILY 09/30/20 Reported Losartan Potassium 50 Mg Tablet 1 Tab PO DAILY 09/30/20 Reported Hydrochlorothiazide 25 Mg Tablet 1 Tab PO DAILY 09/30/20 Reported Labetalol Hcl 200 Mg Tablet 1 Tab PO BID 12/28/14 Rx Lasix (Furosemide) 20 Mg Tablet 1 Tab PO DAILY 12/28/14 Rx Percocet 5-325 Mg Tablet (Oxycodone/Acetaminophen) 1 Each Tablet 1 Tab PO Q4HRS W/A 12/28/14 Rx Ibuprofen 800 Mg Tablet 800 Mg PO Q6H PRN 12/28/14 Rx Methyldopa 500 Mg Tablet 500 Mg PO QID 12/23/14 Reported Zoloft (Sertraline Hcl) 25 Mg Tablet 25 Mg .ROUTE DAILY 12/23/14 Reported Glyburide 2.5 Mg Tablet 2.5 Mg PO QID 12/23/14 Reported Procardia (Nifedipine) 10 Mg Capsule 60 Mg PO DAILY 12/23/14 Reported Tylenol (Acetaminophen) 325 Mg Tablet 325 Mg PO 08/25/13 Reported Prena1 Plus Combo Pack ( No.39/Iron/Fa #6/Dha) 1 Each Combo..pkg 1 Each PO 08/25/13 Reported Comments Chest x-ray reviewed 10/08. No change in bilateral interstitial infiltrates. cxr 10/06 reviewed, b lat infilt increased ett too high Chest x-ray reviewed dated 10/03/2020. Extensive bilateral infiltrates. Slightly decreased in the right lower lobe. Impression . IMPRESSION: 1. Acute hypoxic respiratory failure secondary to COVID-19 viral pneumonia/ARDS/acute lung injury.----- worsening,now intubated 10/01/20. 2. Underlying morbid obesity with a BMI of 58, is another main contributing factor to the severity of hypoxia. 3. No significant tobacco history. 4. Abnormal chest x-ray with bilateral interstitial infiltrates consistent with viral pneumonia. 5. electrolyte abnl resolved 6. High-grade fever secondary to COVID-19 viral infection. Currently covered with broad-spectrum antibiotic per infectious disease recommendation. Plan . Updated 10/08/2020 Continue current vent support 26/500/100/10 Continue adequate sedation, on paralytics Follow ID recommendations in regards to antibiotics, currently on Zosyn, doxy, Naomy, Follow cultures Continue IV steroids for full 10-day course, started on 09/30/2020 Continue remdesivir for full course Continue tube feeding for nutritional support DVT/GI prophylaxis:lovenox Discussed with RN and RT Have talked to patient's brother Thony. Explained to him about her critical condition. All questions answered. Critical care time 30 minutes Updated 10/07/2020 Continue current vent support 26/500/100/10 vec gtt started 10/06 titrate peep fio2 as tolerated cxr reviewed, advanced ett 2 cm on 10/06 t max 105 id on case abx changed to zosyn zyvox micafungin added today fu cxs Continue maximum sedation along and paralytics. Symptomatic treatment of fever Continue IV steroids for full 10-day course, started on 09/30/2020 Continue remdesivir for full course Continue tube feeding recommendations DVT/GI prophylaxis:lovenox Discussed with RN and RT dr kohler discussed w patient's brother Thony. continue present aggressive care. critically ill Critical care time 30 minutes no overlap NILO KOHLER MD Oct 08, 2020 06:20
--- NOTE | 2020-10-08 07:38 | RAD ---
EXAMINATION: Chest radiograph. VIEWS: Single view COMPARISON: 10/07/2020 INDICATION:34 years, Female, respiratory failure, ARDS. FINDINGS: Right costophrenic angle is off image. Stable enlarged cardiomediastinal silhouette. Diffuse bilatera l airspace opacities, unchanged since prior exam. No sizable pleural effusion or pneumothorax. No acu te osseous process. Endotracheal tube tip locates approximately 6.1 cm proximal to the masood. Enteri c tube tip is off image, presumably in the stomach. Right PICC line venous catheter remains unchanged in position. IMPRESSION: Diffuse bilateral airspace opacities, unchanged since prior exam. Electronically signed by: Casey Radford MD (10/08/2020 7:35 AM) JOYCE
[2020-10-08] MEDS: ASPIRIN CHEWABLE 81 MG TABLET. PO SCH (08:05)
[2020-10-08] MEDS: FAMOTIDINE 20 MG/2 ML VIAL IVP SCH ×2 (08:06→20:54)
[2020-10-08] MEDS: glyBURIDE 1.25 MG TABLET PO SCH ×4 (08:06→21:00)
[2020-10-08] MEDS: DOXYCYCLINE HYCLATE 100 MG TABLET PO SCH ×2 (08:07→20:54)
[2020-10-08] MEDS: DEXAMETHASONE SOD PHOS 4 MG/ML VIAL IVP SCH (08:07)
[2020-10-08] MEDS: MULTIVITAMINS,THERAPEUTIC 5 ML ORAL LIQUID. PEG SCH (08:07)
[2020-10-08] MEDS: INSULIN GLARGINE SYRINGE. SQ SCH ×2 (08:08→21:05)
--- NOTE | 2020-10-08 08:18 | PDOC ---
Infectious Disease Note Subjective: Subjective Patient intubated, sedated Fever pattern improving temperature 100.9 On cooling blanket Temperature [id number] F Discussed with nursing staff Vital Signs: Vital Signs Vital Signs Date Time Temp Pulse Resp B/P (MAP) Pulse Ox O2 Delivery O2 Flow Rate FiO2 10/08/20 06:00 90 26 136/88 (104) 100 Ventilator 10/08/20 04:00 100.9 100.9 Physical Exam: PHYSICAL EXAM GENERAL: Morbidly obese female, intubated, sedated. On cooling blanket HEENT: Normocephalic, atraumatic. Anicteric. ET tube, OGT tube present. LUNGS: Coarse breath sounds anteriorly. HEART: S1, S2. No murmurs. ABDOMEN: Obese, soft. Bowel sounds present. Large pannus present GENITOURINARY: Wolf in place. EXTREMITIES: No edema, no cyanosis. DERMATOLOGIC: Warm, dry, no generalized rash. NEUROLOGIC: Intubated and sedated. PSYCHIATRIC: Unable to assess. Right upper extremity PICC line clean. Medications: Inpatient Meds: Medications reviewed. Labs: Lab Laboratory Tests Test 10/07/20 12:19 10/07/20 17:52 10/07/20 23:40 10/08/20 05:15 Glucose (Fingerstick) 208 mg/dL (70-99) 257 mg/dL (70-99) 239 mg/dL (70-99) White Blood Count 12.3 x10^3/uL (4.0-11.0) Red Blood Count 4.06 x10^6/uL (3.50-5.40) Hemoglobin 11.1 g/dL (12.0-15.5) Hematocrit 33.8 % (36.0-47.0) Mean Corpuscular Volume 83 fL (79-100) Mean Corpuscular Hemoglobin 27 pg (25-35) Mean Corpuscular Hemoglobin Concent 33 g/dL (31-37) Red Cell Distribution Width 14.8 % (11.5-14.5) Platelet Count 235 x10^3/uL (140-400) Neutrophils (%) (Auto) 84 % (31-73) Lymphocytes (%) (Auto) 9 % (24-48) Monocytes (%) (Auto) 6 % (0-9) Eosinophils (%) (Auto) 1 % (0-3) Basophils (%) (Auto) 1 % (0-3) Neutrophils # (Auto) 10.3 x10^3/uL (1.8-7.7) Lymphocytes # (Auto) 1.0 x10^3/uL (1.0-4.8) Monocytes # (Auto) 0.8 x10^3/uL (0.0-1.1) Eosinophils # (Auto) 0.1 x10^3/uL (0.0-0.7) Basophils # (Auto) 0.1 x10^3/uL (0.0-0.2) Sodium Level 138 mmol/L (136-145) Potassium Level 4.4 mmol/L (3.5-5.1) Chloride Level 105 mmol/L (98-107) Carbon Dioxide Level 29 mmol/L (21-32) Anion Gap 4 (6-14) Blood Urea Nitrogen 14 mg/dL (7-20) Creatinine 0.7 mg/dL (0.6-1.0) Estimated GFR (Cockcroft-Gault) 115.2 Glucose Level 213 mg/dL (70-99) Calcium Level 8.4 mg/dL (8.5-10.1) Objective: Assessment: Fever of 105.2 F likely from COVID 1. COVID-19 pneumonia. Status post remdesivir, on steroids 2. Acute hypoxic respiratory failure secondary to COVID-19.s/p intubation 3. Abnormal LFTs likely from COVID 4. Morbid obesity. 5. Diabetes mellitus. 6. Hypertension. 7. Hypokalemia. Plan: Plan of Care Continue Zosyn and doxycycline Linezolid was discontinued due to high-grade fevers on 10/07/2020 Continue micafungin Actemra or other immuno modulators treatment are not available per pharmacy at this center at this time Follow up labs and cultures. Continue supportive care. Critically ill. Prognosis guarded Discussed with nursing staff DENYS KHALIL MD Oct 08, 2020 08:18
[2020-10-08] MEDS: ELECTROLYTE (ICU) PROTOCOL. MC SCH (09:00)
[2020-10-08 09:11] LABS: BASE EXCESS ABG 1 mmol/L (-3-3); HCO3 ABG 25 mmol/L (21-28); PCO2 ABG 39 mmHg (35-46); PO2 ABG 61 mmHg (85-108); SAT O2 ABG 91 % (92-99)
[2020-10-08] MEDS: MICAFUNGIN 100 MG in IV DEXTROSE 5% 100ML 100 ML IV SCH (10:19)
--- NOTE | 2020-10-08 13:09 | PDOC ---
[employer] PROGRESS NOTE Date of Service DOS: DATE: 10/08/20 TIME: 13:08 Chief Complaint Chief Complaint Covid 19 pneumonia/ ARDS Viral sepsis Acute hypoxic resp failure Super morbid obesity Extensive pulmonary opacities with areas of consolidation // multilobar pneumonia versus noncardiogenic pulmonary edema from ARDS. plan ADMIT ICU BED Consult pulmonary dvt prophylaxis Vapotherm 40 L 100% with additional 100% nonrebreather, plan intubation 8-16 IV STEROIDS COVID 19 PROTOCOL IV DOXYCYCLINE 100MG BID SERIAL CXR Critically ill History of Present Illness History of Present Illness 34 year old female past medical history hypertension diabetes presented with a chief complaint of shortness of breath. diagnosed with COVID-19 this past Thursday. in er c/o shortness of breath cough fever muscle aches x1 week. //not vaccinated against COVID-19. Patient states over the last 2 days shortness of breath is progressed to become worse. Patient states she cannot catch her breath therefore she called 911. Upon EMS arrival patient's oxygen saturation in the upper 80s on room air. On arrival in ER patient patient on 15 L nonrebreather NOW IN NEED OF INTUBATION FOR Covid 19 pneumonia // Viral sepsis Acute hypoxic resp failure Super morbid obesity CXR C/W Extensive pulmonary opacities with areas of consolidation // multilobar pneumonia versus noncardiogenic pulmonary edema from ARDS. 10/02/2020: Afe low-grade fever in ICU yesterday (99.6 F). Intubated in ICU yesterday, on vent with FiO2 100%, PEEP 8. She was initiated on remdesivir. We will continue treatment with IV steroids and antibiotics. Still hyperglycemic today; will adjust insulin. Appreciate pulmonology recommendations and management patient. Critical care time 30 minutes spent reviewing charts, reviewing labs, examination, discussion with RN. 10/03/2020: Febrile overnight with T-max 101.1 F. On vent with FiO2 100%, PEEP 8. Chest x-ray today showed extensive pulmonary infiltrates again demonstrated with some improved aeration at the left perihilar upper lobe and lingula. Morning labs pending at this time. Continue IV antibiotics. Continue IV Decadron to complete 10-day treatment. Continue supportive care. Critical care time 30 minutes spent reviewing charts, reviewing labs, reviewing imaging, and discussion with RN. 10/04/2020: Febrile overnight with T-max 100.3 F. On ventilator with FiO2 100%, PEEP 8. Last dose of remdesivir today. Continue IV antibiotics. Continue IV Decadron to complete 10-day treatment. Continue supportive care. Critical care time 30 minutes spent reviewing charts, reviewing labs, reviewing imaging, and discussion with RN. 10/05/2020: Afebrile overnight. On vent with FiO2 100%, PEEP 8. She has completed remdesivir. We will continue with IV steroids and IV antibiotics to complete 10-day treatment (last day should be 10/11/2020). Continue supportive care. Critical care time 30 minutes spent reviewing charts, reviewing labs, reviewing imaging, and discussion with RN. 10/06/2020: Febrile overnight with T-max 100.3 F. On vent with FiO2 100%, PEEP 8. WBC 15.1. Continue Tylenol as needed (rectal suppository prn if needed). We will continue with IV steroids and IV antibiotics to complete 10-day treatment (last day should be 10/11/2020). Continue supportive care. Critical care time 30 minutes spent reviewing charts, reviewing labs, reviewing imaging, and discussion with RN. 10/07/2020: Febrile overnight with T-max 104.9 F. CRP significantly elevated. Discussed with pharmacy, no abdominal available at this time. Continue Tylenol as needed (rectal suppository prn if needed). Cooling blanket as needed. Chest x-ray yesterday showed increased diffuse pulmonary consolidations. Will continue with IV steroids and IV antibiotics to complete 10-day treatment (last day should be 10/11/2020). Continue supportive care. Critical care time 30 minutes spent reviewing charts, reviewing labs, reviewing imaging, and discussion with RN. 10/08/2020 No acute events overnight. T-max of 100.1 in the last 24 hours. Chest x-ray shows no acute change. Currently saturating 100% on vent settings of 26/500/100/10. Patient's chart, labs, images were reviewed and discussed with RN. A total of 34 minutes of critical care time was spent in reviewing chart, labs, and images. Discussed with RN and SW. Vitals/I&O Vitals/I&O: Vital Signs Date Time Temp Pulse Resp B/P (MAP) Pulse Ox O2 Delivery O2 Flow Rate FiO2 10/08/20 12:00 Mechanical Ventilator 8/23/21 12:00 100.5 89 26 131/87 (102) 100 100.5 I & O 10/07/20 10/07/20 10/08/20 14:59 22:59 06:59 Intake Total 600 ml 2325 ml 2598 ml Output Total 380 ml 575 ml 435 ml Balance 220 ml 1750 ml 2163 ml Physical Exam Physical Exam: GENERAL: Morbidly obese female, intubated, sedated. On cooling blanket HEENT: Normocephalic, atraumatic. Anicteric. ET tube, OGT tube present. LUNGS: Coarse breath sounds anteriorly. HEART: S1, S2. No murmurs. ABDOMEN: Obese, soft. Bowel sounds present. Large pannus present GENITOURINARY: Wolf in place. EXTREMITIES: No edema, no cyanosis. DERMATOLOGIC: Warm, dry, no generalized rash. NEUROLOGIC: Intubated and sedated. PSYCHIATRIC: Unable to assess. Right upper extremity PICC line clean. General: Other (Intubated and sedated) Heart: Regular rate Lungs: Other (Increased work of breathing) Abdomen: Soft, No tenderness Extremities: No clubbing, No cyanosis Skin: No rashes, No breakdown Labs Labs: Laboratory Tests Test 10/07/20 17:52 10/07/20 23:40 10/08/20 05:15 10/08/20 08:00 Glucose (Fingerstick) 257 mg/dL (70-99) 239 mg/dL (70-99) White Blood Count 12.3 x10^3/uL (4.0-11.0) Red Blood Count 4.06 x10^6/uL (3.50-5.40) Hemoglobin 11.1 g/dL (12.0-15.5) Hematocrit 33.8 % (36.0-47.0) Mean Corpuscular Volume 83 fL (79-100) Mean Corpuscular Hemoglobin 27 pg (25-35) Mean Corpuscular Hemoglobin Concent 33 g/dL (31-37) Red Cell Distribution Width 14.8 % (11.5-14.5) Platelet Count 235 x10^3/uL (140-400) Neutrophils (%) (Auto) 84 % (31-73) Lymphocytes (%) (Auto) 9 % (24-48) Monocytes (%) (Auto) 6 % (0-9) Eosinophils (%) (Auto) 1 % (0-3) Basophils (%) (Auto) 1 % (0-3) Neutrophils # (Auto) 10.3 x10^3/uL (1.8-7.7) Lymphocytes # (Auto) 1.0 x10^3/uL (1.0-4.8) Monocytes # (Auto) 0.8 x10^3/uL (0.0-1.1) Eosinophils # (Auto) 0.1 x10^3/uL (0.0-0.7) Basophils # (Auto) 0.1 x10^3/uL (0.0-0.2) Sodium Level 138 mmol/L (136-145) Potassium Level 4.4 mmol/L (3.5-5.1) Chloride Level 105 mmol/L (98-107) Carbon Dioxide Level 29 mmol/L (21-32) Anion Gap 4 (6-14) Blood Urea Nitrogen 14 mg/dL (7-20) Creatinine 0.7 mg/dL (0.6-1.0) Estimated GFR (Cockcroft-Gault) 115.2 Glucose Level 213 mg/dL (70-99) Calcium Level 8.4 mg/dL (8.5-10.1) O2 Saturation 91 % (92-99) Arterial Blood pH 7.43 (7.35-7.45) Arterial Blood pCO2 at Patient Temp 39 mmHg (35-46) Arterial Blood pO2 at Patient Temp 61 mmHg (85-108) Arterial Blood HCO3 25 mmol/L (21-28) Arterial Blood Base Excess 1 mmol/L (-3-3) FiO2 100/vent Test 10/08/20 11:56 Glucose (Fingerstick) 200 mg/dL (70-99) Assessment and Plan Assessmemt and Plan Problems Medical Problems: (1) COVID-19 Status: Acute (2) Hypoxia Status: Acute Comment Review of Relevant I have reviewed the following items adryan (where applicable) has been applied. Medications: Current Medications Medications (Trade) Dose Ordered Sig/Vidal Route PRN Reason Start Time Stop Time Status Last Admin Dose Admin Insulin Glargine (Lantus Syringe) 30 unit BID SQ 10/07/20 21:00 10/08/20 08:08 Justifications for Admission Other Justification AR AGUILAR MD Oct 08, 2020 13:09
[2020-10-08] MEDS: fentaNYL HIGH DOSE PCA 55 ML IV PRN (13:13)
--- NOTE | 2020-10-08 22:00 | NUR ---
Glyburide not given as patients blood glucose was 205 via POCT and was given 30units of Lantus.
[2020-10-09] VITALS (24 sets, daily range): BP systolic 19–150; BP diastolic 81–96
[2020-10-09] MEDS: PROPOFOL 100 ML IV PRN ×12 (00:42→23:59)
[2020-10-09] MEDS: PIPERACILLIN/TAZOBACTAM 3.375 GM in IV NORMAL SALINE 50ML 50 ML IV SCH ×5 (00:43→23:29)
[2020-10-09] MEDS: INSULIN LISPRO 300 UNITS/3 ML VIAL. SQ SCH ×10 (00:44→23:59)
[2020-10-09] MEDS: DEXMEDETOMIDINE 400 MCG in IV NORMAL SALINE 100ML 96 ML IV PRN ×9 (01:38→23:36)
[2020-10-09 05:48] LABS: BASO # 0.1 x10^3/uL (0.0-0.2); BASO % 1 % (0-3); EOS # 0.1 x10^3/uL (0.0-0.7); EOS % 1 % (0-3); HEMATOCRIT 29.2 % (36.0-47.0); LYMPH % 9 % (24-48); MEAN CORPUSCULAR VOLUME 84 fL (79-100); MONO # 0.6 x10^3/uL (0.0-1.1); MONO % 5 % (0-9); NEUT # 9.5 x10^3/uL (1.8-7.7); NEUT % 85 % (31-73); PLATELET COUNT 209 x10^3/uL (140-400); RED BLOOD COUNT 3.46 x10^6/uL (3.50-5.40); RED CELL DISTRIBUTION WIDTH 14.7 % (11.5-14.5); WHITE BLOOD COUNT 11.2 x10^3/uL (4.0-11.0)
[2020-10-09] MEDS: fentaNYL HIGH DOSE PCA 55 ML IV PRN ×2 (06:40→23:54)
[2020-10-09 07:08] LABS: HEMOGLOBIN 9.2 g/dL (12.0-15.5); MEAN CORPUSCULAR HEMOGLOBIN 27 pg (25-35)
[2020-10-09 07:09] LABS: MEAN CORPUSCULAR HGB CONC 32 g/dL (31-37)
[2020-10-09 07:14] LABS: CALCIUM 6.8 mg/dL (8.5-10.1); CREATININE 0.4 mg/dL (0.6-1.0); GFR 219.8; POTASSIUM 3.8 mmol/L (3.5-5.1)
[2020-10-09] MEDS ORDERED: IV NORMAL SALINE 1000ML BAG 1,000 ML IV PRN (08:00)
--- NOTE | 2020-10-09 08:05 | PDOC ---
Infectious Disease Note Subjective: Subjective Patient intubated, sedated Fever pattern improved On cooling blanket Temperature Sob890.9 Discussed with nursing staff Vital Signs: Vital Signs Vital Signs Date Time Temp Pulse Resp B/P (MAP) Pulse Ox O2 Delivery O2 Flow Rate FiO2 10/09/20 07:10 26 100 Ventilator 10/09/20 07:00 80 123/86 (98) 10/09/20 04:00 98.6 98.6 Physical Exam: PHYSICAL EXAM GENERAL: Morbidly obese female, intubated, sedated. On cooling blanket HEENT: Normocephalic, atraumatic. Anicteric. ET tube, OGT tube present. LUNGS: Coarse breath sounds anteriorly. HEART: S1, S2. No murmurs. ABDOMEN: Obese, soft. Bowel sounds present. Large pannus present GENITOURINARY: Wolf in place. EXTREMITIES: Trace edema, no cyanosis. DERMATOLOGIC: Warm, dry, no generalized rash. NEUROLOGIC: Intubated and sedated. Right upper extremity PICC line clean. Medications: Inpatient Meds: Medications reviewed. Labs: Lab Laboratory Tests Test 10/08/20 08:00 10/08/20 11:56 10/08/20 17:28 10/08/20 21:15 O2 Saturation 91 % (92-99) Arterial Blood pH 7.43 (7.35-7.45) Arterial Blood pCO2 at Patient Temp 39 mmHg (35-46) Arterial Blood pO2 at Patient Temp 61 mmHg (85-108) Arterial Blood HCO3 25 mmol/L (21-28) Arterial Blood Base Excess 1 mmol/L (-3-3) FiO2 100/vent Glucose (Fingerstick) 200 mg/dL (70-99) 245 mg/dL (70-99) 205 mg/dL (70-99) Test 10/09/20 00:31 10/09/20 05:00 10/09/20 06:14 10/09/20 06:15 Glucose (Fingerstick) 179 mg/dL (70-99) 168 mg/dL (70-99) White Blood Count 11.2 x10^3/uL (4.0-11.0) Red Blood Count 3.46 x10^6/uL (3.50-5.40) Hemoglobin 9.2 g/dL (12.0-15.5) Hematocrit 29.2 % (36.0-47.0) Mean Corpuscular Volume 84 fL (79-100) Mean Corpuscular Hemoglobin 27 pg (25-35) Mean Corpuscular Hemoglobin Concent 32 g/dL (31-37) Red Cell Distribution Width 14.7 % (11.5-14.5) Platelet Count 209 x10^3/uL (140-400) Neutrophils (%) (Auto) 85 % (31-73) Lymphocytes (%) (Auto) 9 % (24-48) Monocytes (%) (Auto) 5 % (0-9) Eosinophils (%) (Auto) 1 % (0-3) Basophils (%) (Auto) 1 % (0-3) Neutrophils # (Auto) 9.5 x10^3/uL (1.8-7.7) Lymphocytes # (Auto) 1.0 x10^3/uL (1.0-4.8) Monocytes # (Auto) 0.6 x10^3/uL (0.0-1.1) Eosinophils # (Auto) 0.1 x10^3/uL (0.0-0.7) Basophils # (Auto) 0.1 x10^3/uL (0.0-0.2) Sodium Level 128 mmol/L (136-145) Potassium Level 3.8 mmol/L (3.5-5.1) Chloride Level 97 mmol/L (98-107) Carbon Dioxide Level 25 mmol/L (21-32) Anion Gap 6 (6-14) Blood Urea Nitrogen 11 mg/dL (7-20) Creatinine 0.4 mg/dL (0.6-1.0) Estimated GFR (Cockcroft-Gault) 219.8 Glucose Level 155 mg/dL (70-99) Calcium Level 6.8 mg/dL (8.5-10.1) Objective: Assessment: Fever improving 1. COVID-19 pneumonia. Status post remdesivir, on steroids 2. Acute hypoxic respiratory failure secondary to COVID-19.s/p intubation 3. Abnormal LFTs likely from COVID 4. Morbid obesity. 5. Diabetes mellitus. 6. Hypertension. 7. Hypokalemia.Hyponatremia Plan: Plan of Care Continue Zosyn and doxycycline Linezolid was discontinued due to high-grade fevers on 10/07/2020 Continue micafungin for now Follow up labs and cultures. Continue supportive care. Critically ill. Prognosis guarded Discussed with nursing staff DENYS KHALIL MD Oct 09, 2020 08:05
[2020-10-09 08:19] LABS: BASE EXCESS ABG 3 mmol/L (-3-3); HCO3 ABG 28 mmol/L (21-28); PCO2 ABG 43 mmHg (35-46); PO2 ABG 63 mmHg (85-108); SAT O2 ABG 91 % (92-99)
[2020-10-09] MEDS: DOXYCYCLINE HYCLATE 100 MG TABLET PO SCH ×2 (08:36→20:50)
[2020-10-09] MEDS: ASPIRIN CHEWABLE 81 MG TABLET. PO SCH (08:36)
[2020-10-09] MEDS: DEXAMETHASONE SOD PHOS 4 MG/ML VIAL IVP SCH (08:36)
[2020-10-09] MEDS: MULTIVITAMINS,THERAPEUTIC 5 ML ORAL LIQUID. PEG SCH (08:37)
[2020-10-09] MEDS: glyBURIDE 1.25 MG TABLET PO SCH ×4 (08:37→20:52)
[2020-10-09 08:40] LABS: ALBUMIN 1.1 g/dL (3.4-5.0); ALK PHOS 89 U/L (46-116); ALT (SGPT) 129 U/L (14-59); AST (SGOT) 49 U/L (15-37); DIRECT BILIRUBIN < 0.1 mg/dL (0.0-0.2); TOTAL BILIRUBIN 0.6 mg/dL (0.2-1.0); TOTAL PROTEIN 4.8 g/dL (6.4-8.2)
[2020-10-09] MEDS: ELECTROLYTE (ICU) PROTOCOL. MC SCH (09:00)
[2020-10-09 09:11] LABS: FIO2 ABG 100/VENT
[2020-10-09] MEDS: VECURONIUM BROMIDE 50 MG in IV NORMAL SALINE 50ML 50 ML IV PRN ×2 (09:27→21:14)
[2020-10-09] MEDS: INSULIN GLARGINE SYRINGE. SQ SCH ×2 (10:11→20:52)
[2020-10-09] MEDS: MICAFUNGIN 100 MG in IV DEXTROSE 5% 100ML 100 ML IV SCH (10:12)
[2020-10-09] MEDS: FAMOTIDINE 20 MG/2 ML VIAL IVP SCH ×2 (11:01→20:50)
--- NOTE | 2020-10-09 11:15 | PDOC ---
PULMONARY PROGRESS NOTES DATE: 10/09/20 TIME: 11:11 Subjective intubated 10/01/20 Fever overnight Remains on vent support 100% and PEEP of 10 On vecuronium drip No overnight concerns from nursing Vitals Vital Signs Date Time Temp Pulse Resp B/P (MAP) Pulse Ox O2 Delivery O2 Flow Rate FiO2 10/09/20 09:47 100 Ventilator 10/09/20 09:00 80 26 19/81 (61) 10/09/20 08:00 97.4 97.4 Comments Patient seen during pandemic sedated on vent nc at RRR accessory muscle use obese intubated No obvious rash or edema Labs Laboratory Tests Test 10/07/20 12:19 10/07/20 17:52 10/07/20 23:40 10/08/20 05:15 Glucose (Fingerstick) 208 mg/dL (70-99) 257 mg/dL (70-99) 239 mg/dL (70-99) White Blood Count 12.3 x10^3/uL (4.0-11.0) Red Blood Count 4.06 x10^6/uL (3.50-5.40) Hemoglobin 11.1 g/dL (12.0-15.5) Hematocrit 33.8 % (36.0-47.0) Mean Corpuscular Volume 83 fL (79-100) Mean Corpuscular Hemoglobin 27 pg (25-35) Mean Corpuscular Hemoglobin Concent 33 g/dL (31-37) Red Cell Distribution Width 14.8 % (11.5-14.5) Platelet Count 235 x10^3/uL (140-400) Neutrophils (%) (Auto) 84 % (31-73) Lymphocytes (%) (Auto) 9 % (24-48) Monocytes (%) (Auto) 6 % (0-9) Eosinophils (%) (Auto) 1 % (0-3) Basophils (%) (Auto) 1 % (0-3) Neutrophils # (Auto) 10.3 x10^3/uL (1.8-7.7) Lymphocytes # (Auto) 1.0 x10^3/uL (1.0-4.8) Monocytes # (Auto) 0.8 x10^3/uL (0.0-1.1) Eosinophils # (Auto) 0.1 x10^3/uL (0.0-0.7) Basophils # (Auto) 0.1 x10^3/uL (0.0-0.2) Sodium Level 138 mmol/L (136-145) Potassium Level 4.4 mmol/L (3.5-5.1) Chloride Level 105 mmol/L (98-107) Carbon Dioxide Level 29 mmol/L (21-32) Anion Gap 4 (6-14) Blood Urea Nitrogen 14 mg/dL (7-20) Creatinine 0.7 mg/dL (0.6-1.0) Estimated GFR (Cockcroft-Gault) 115.2 Glucose Level 213 mg/dL (70-99) Calcium Level 8.4 mg/dL (8.5-10.1) Test 10/08/20 08:00 10/08/20 11:56 10/08/20 17:28 10/08/20 21:15 O2 Saturation 91 % (92-99) Arterial Blood pH 7.43 (7.35-7.45) Arterial Blood pCO2 at Patient Temp 39 mmHg (35-46) Arterial Blood pO2 at Patient Temp 61 mmHg (85-108) Arterial Blood HCO3 25 mmol/L (21-28) Arterial Blood Base Excess 1 mmol/L (-3-3) FiO2 100/vent Glucose (Fingerstick) 200 mg/dL (70-99) 245 mg/dL (70-99) 205 mg/dL (70-99) Test 10/09/20 00:31 10/09/20 05:00 10/09/20 06:14 10/09/20 06:15 Glucose (Fingerstick) 179 mg/dL (70-99) 168 mg/dL (70-99) White Blood Count 11.2 x10^3/uL (4.0-11.0) Red Blood Count 3.46 x10^6/uL (3.50-5.40) Hemoglobin 9.2 g/dL (12.0-15.5) Hematocrit 29.2 % (36.0-47.0) Mean Corpuscular Volume 84 fL (79-100) Mean Corpuscular Hemoglobin 27 pg (25-35) Mean Corpuscular Hemoglobin Concent 32 g/dL (31-37) Red Cell Distribution Width 14.7 % (11.5-14.5) Platelet Count 209 x10^3/uL (140-400) Neutrophils (%) (Auto) 85 % (31-73) Lymphocytes (%) (Auto) 9 % (24-48) Monocytes (%) (Auto) 5 % (0-9) Eosinophils (%) (Auto) 1 % (0-3) Basophils (%) (Auto) 1 % (0-3) Neutrophils # (Auto) 9.5 x10^3/uL (1.8-7.7) Lymphocytes # (Auto) 1.0 x10^3/uL (1.0-4.8) Monocytes # (Auto) 0.6 x10^3/uL (0.0-1.1) Eosinophils # (Auto) 0.1 x10^3/uL (0.0-0.7) Basophils # (Auto) 0.1 x10^3/uL (0.0-0.2) Sodium Level 128 mmol/L (136-145) Potassium Level 3.8 mmol/L (3.5-5.1) Chloride Level 97 mmol/L (98-107) Carbon Dioxide Level 25 mmol/L (21-32) Anion Gap 6 (6-14) Blood Urea Nitrogen 11 mg/dL (7-20) Creatinine 0.4 mg/dL (0.6-1.0) Estimated GFR (Cockcroft-Gault) 219.8 Glucose Level 155 mg/dL (70-99) Calcium Level 6.8 mg/dL (8.5-10.1) Total Bilirubin 0.6 mg/dL (0.2-1.0) Direct Bilirubin < 0.1 mg/dL (0.0-0.2) Aspartate Amino Transf (AST/SGOT) 49 U/L (15-37) Alanine Aminotransferase (ALT/SGPT) 129 U/L (14-59) Alkaline Phosphatase 89 U/L (46-116) Total Protein 4.8 g/dL (6.4-8.2) Albumin 1.1 g/dL (3.4-5.0) Test 10/09/20 08:00 O2 Saturation 91 % (92-99) Arterial Blood pH 7.43 (7.35-7.45) Arterial Blood pCO2 at Patient Temp 43 mmHg (35-46) Arterial Blood pO2 at Patient Temp 63 mmHg (85-108) Arterial Blood HCO3 28 mmol/L (21-28) Arterial Blood Base Excess 3 mmol/L (-3-3) FiO2 100/vent Laboratory Tests Test 10/08/20 11:56 10/08/20 17:28 10/08/20 21:15 10/09/20 00:31 Glucose (Fingerstick) 200 mg/dL (70-99) 245 mg/dL (70-99) 205 mg/dL (70-99) 179 mg/dL (70-99) Test 10/09/20 05:00 10/09/20 06:14 10/09/20 06:15 10/09/20 08:00 White Blood Count 11.2 x10^3/uL (4.0-11.0) Red Blood Count 3.46 x10^6/uL (3.50-5.40) Hemoglobin 9.2 g/dL (12.0-15.5) Hematocrit 29.2 % (36.0-47.0) Mean Corpuscular Volume 84 fL (79-100) Mean Corpuscular Hemoglobin 27 pg (25-35) Mean Corpuscular Hemoglobin Concent 32 g/dL (31-37) Red Cell Distribution Width 14.7 % (11.5-14.5) Platelet Count 209 x10^3/uL (140-400) Neutrophils (%) (Auto) 85 % (31-73) Lymphocytes (%) (Auto) 9 % (24-48) Monocytes (%) (Auto) 5 % (0-9) Eosinophils (%) (Auto) 1 % (0-3) Basophils (%) (Auto) 1 % (0-3) Neutrophils # (Auto) 9.5 x10^3/uL (1.8-7.7) Lymphocytes # (Auto) 1.0 x10^3/uL (1.0-4.8) Monocytes # (Auto) 0.6 x10^3/uL (0.0-1.1) Eosinophils # (Auto) 0.1 x10^3/uL (0.0-0.7) Basophils # (Auto) 0.1 x10^3/uL (0.0-0.2) Glucose (Fingerstick) 168 mg/dL (70-99) Sodium Level 128 mmol/L (136-145) Potassium Level 3.8 mmol/L (3.5-5.1) Chloride Level 97 mmol/L (98-107) Carbon Dioxide Level 25 mmol/L (21-32) Anion Gap 6 (6-14) Blood Urea Nitrogen 11 mg/dL (7-20) Creatinine 0.4 mg/dL (0.6-1.0) Estimated GFR (Cockcroft-Gault) 219.8 Glucose Level 155 mg/dL (70-99) Calcium Level 6.8 mg/dL (8.5-10.1) Total Bilirubin 0.6 mg/dL (0.2-1.0) Direct Bilirubin < 0.1 mg/dL (0.0-0.2) Aspartate Amino Transf (AST/SGOT) 49 U/L (15-37) Alanine Aminotransferase (ALT/SGPT) 129 U/L (14-59) Alkaline Phosphatase 89 U/L (46-116) Total Protein 4.8 g/dL (6.4-8.2) Albumin 1.1 g/dL (3.4-5.0) O2 Saturation 91 % (92-99) Arterial Blood pH 7.43 (7.35-7.45) Arterial Blood pCO2 at Patient Temp 43 mmHg (35-46) Arterial Blood pO2 at Patient Temp 63 mmHg (85-108) Arterial Blood HCO3 28 mmol/L (21-28) Arterial Blood Base Excess 3 mmol/L (-3-3) FiO2 100/vent Medications Active Scripts Medications Dose Route/Sig Max Daily Dose Days Date Category Fluoxetine Hcl 60 Mg Tablet 1 Tab PO DAILY 09/30/20 Reported Losartan Potassium 50 Mg Tablet 1 Tab PO DAILY 09/30/20 Reported Hydrochlorothiazide 25 Mg Tablet 1 Tab PO DAILY 09/30/20 Reported Labetalol Hcl 200 Mg Tablet 1 Tab PO BID 12/28/14 Rx Lasix (Furosemide) 20 Mg Tablet 1 Tab PO DAILY 12/28/14 Rx Percocet 5-325 Mg Tablet (Oxycodone/Acetaminophen) 1 Each Tablet 1 Tab PO Q4HRS W/A 12/28/14 Rx Ibuprofen 800 Mg Tablet 800 Mg PO Q6H PRN 12/28/14 Rx Methyldopa 500 Mg Tablet 500 Mg PO QID 12/23/14 Reported Zoloft (Sertraline Hcl) 25 Mg Tablet 25 Mg .ROUTE DAILY 12/23/14 Reported Glyburide 2.5 Mg Tablet 2.5 Mg PO QID 12/23/14 Reported Procardia (Nifedipine) 10 Mg Capsule 60 Mg PO DAILY 12/23/14 Reported Tylenol (Acetaminophen) 325 Mg Tablet 325 Mg PO 08/25/13 Reported Prena1 Plus Combo Pack ( No.39/Iron/Fa #6/Dha) 1 Each Combo..pkg 1 Each PO 08/25/13 Reported Comments Chest x-ray reviewed 10/08. No change in bilateral interstitial infiltrates. cxr 10/06 reviewed, b lat infilt increased ett too high Chest x-ray reviewed dated 10/03/2020. Extensive bilateral infiltrates. Slightly decreased in the right lower lobe. Impression . IMPRESSION: 1. Acute hypoxic respiratory failure secondary to COVID-19 viral pneumonia/ARDS/acute lung injury.----- worsening,now intubated 10/01/20. 2. Underlying morbid obesity with a BMI of 58, is another main contributing factor to the severity of hypoxia. 3. No significant tobacco history. 4. Abnormal chest x-ray with bilateral interstitial infiltrates consistent with viral pneumonia. 5. electrolyte abnl resolved 6. High-grade fever secondary to COVID-19 viral infection. Currently covered with broad-spectrum antibiotic per infectious disease recommendation. Plan . Updated 10/09/2020 Continue current vent support 26/500/100/10 Continue adequate sedation, on paralytics Follow ID recommendations in regards to antibiotics, currently on Zosyn, doxy, Naomy, Follow cultures Continue IV steroids for full 10-day course, started on 09/30/2020 Continue remdesivir for full course Continue tube feeding for nutritional support DVT/GI prophylaxis:lovenox Discussed with RN and RT Have talked to patient's brother Thony 10/08. Explained to him about her critical condition. All questions answered. Critical care time 30 minutes Updated 10/08/2020 Continue current vent support 26/500/100/10 Continue adequate sedation, on paralytics Follow ID recommendations in regards to antibiotics, currently on Zosyn, doxy, M ica, Follow cultures Continue IV steroids for full 10-day course, started on 09/30/2020 Continue remdesivir for full course Continue tube feeding for nutritional support DVT/GI prophylaxis:lovenox Discussed with RN and RT Have talked to patient's brother Thony. Explained to him about her critical condition. All questions answered. Critical care time 30 minutes Updated 10/07/2020 Continue current vent support 26/500/100/10 vec gtt started 10/06 titrate peep fio2 as tolerated cxr reviewed, advanced ett 2 cm on 10/06 t max 105 id on case abx changed to zosyn zyvox micafungin added today fu cxs Continue maximum sedation along and paralytics. Symptomatic treatment of fever Continue IV steroids for full 10-day course, started on 09/30/2020 Continue remdesivir for full course Continue tube feeding recommendations DVT/GI prophylaxis:lovenox Discussed with RN and RT dr kohler discussed w patient's brother Thony. continue present aggressive care. critically ill Critical care time 30 minutes no overlap NILO KOHLER MD Oct 09, 2020 11:15
[2020-10-09] MEDS: MIDAZOLAM 100mg/100ml NS BAG 100 ML IV PRN (11:33)
--- NOTE | 2020-10-09 12:14 | PDOC ---
[employer] PROGRESS NOTE Date of Service DOS: DATE: 10/09/20 TIME: 12:13 Chief Complaint Chief Complaint Covid 19 pneumonia/ ARDS Viral sepsis Acute hypoxic resp failure Super morbid obesity Extensive pulmonary opacities with areas of consolidation // multilobar pneumonia versus noncardiogenic pulmonary edema from ARDS Hyponatremia plan ADMIT ICU BED Consult pulmonary dvt prophylaxis Vapotherm 40 L 100% with additional 100% nonrebreather, plan intubation 8-16 IV STEROIDS COVID 19 PROTOCOL IV DOXYCYCLINE 100MG BID SERIAL CXR Critically ill History of Present Illness History of Present Illness 34 year old female past medical history hypertension diabetes presented with a chief complaint of shortness of breath. diagnosed with COVID-19 this past Thursday. in er c/o shortness of breath cough fever muscle aches x1 week. //not vaccinated against COVID-19. Patient states over the last 2 days shortness of breath is progressed to become worse. Patient states she cannot catch her breath therefore she called 911. Upon EMS arrival patient's oxygen saturation in the upper 80s on room air. On arrival in ER patient patient on 15 L nonrebreather NOW IN NEED OF INTUBATION FOR Covid 19 pneumonia // Viral sepsis Acute hypoxic resp failure Super morbid obesity CXR C/W Extensive pulmonary opacities with areas of consolidation // multilobar pneumonia versus noncardiogenic pulmonary edema from ARDS. 10/02/2020: Afe low-grade fever in ICU yesterday (99.6 F). Intubated in ICU yesterday, on vent with FiO2 100%, PEEP 8. She was initiated on remdesivir. We will continue treatment with IV steroids and antibiotics. Still hyperglycemic today; will adjust insulin. Appreciate pulmonology recommendations and management patient. Critical care time 30 minutes spent reviewing charts, revi rice labs, examination, discussion with RN. 10/03/2020: Febrile overnight with T-max 101.1 F. On vent with FiO2 100%, PEEP 8. Chest x-ray today showed extensive pulmonary infiltrates again demonstrated with some improved aeration at the left perihilar upper lobe and lingula. Morning labs pending at this time. Continue IV antibiotics. Continue IV Decadron to complete 10-day treatment. Continue supportive care. Critical care time 30 minutes spent reviewing charts, reviewing labs, reviewing imaging, and discussion with RN. 10/04/2020: Febrile overnight with T-max 100.3 F. On ventilator with FiO2 100%, PEEP 8. Last dose of remdesivir today. Continue IV antibiotics. Continue IV Decadron to complete 10-day treatment. Continue supportive care. Critical care time 30 minutes spent reviewing charts, reviewing labs, reviewing imaging, and discussion with RN. 10/05/2020: Afebrile overnight. On vent with FiO2 100%, PEEP 8. She has completed remdesivir. We will continue with IV steroids and IV antibiotics to complete 10- day treatment (last day should be 10/11/2020). Continue supportive care. Critical care time 30 minutes spent reviewing charts, reviewing labs, reviewing imaging, and discussion with RN. 10/06/2020: Febrile overnight with T-max 100.3 F. On vent with FiO2 100%, PEEP 8. WBC 15.1. Continue Tylenol as needed (rectal suppository prn if needed). We will continue with IV steroids and IV antibiotics to complete 10-day treatment (last day should be 10/11/2020). Continue supportive care. Critical care time 30 minutes spent reviewing charts, reviewing labs, reviewing imaging, and discussion with RN. 10/07/2020: Febrile overnight with T-max 104.9 F. CRP significantly elevated. Discussed with pharmacy, no abdominal available at this time. Continue Tylenol as needed (rectal suppository prn if needed). Cooling blanket as needed. Chest x-ray yesterday showed increased diffuse pulmonary consolidations. Will continue with IV steroids and IV antibiotics to complete 10-day treatment (last day should be 10/11/2020). Continue supportive care. Critical care time 30 minutes spent reviewing charts, reviewing labs, reviewing imaging, and discussion with RN. 10/08/2020 No acute events overnight. T-max of 100.1 in the last 24 hours. Chest x-ray shows no acute change. Currently saturating 100% on vent settings of 26/500/100/10. Patient's chart, labs, images were reviewed and discussed with RN. A total of 34 minutes of critical care time was spent in reviewing chart, labs, and images. Discussed with RN and SW. 10/09/2020 Patient seen and examined bedside. Afebrile in the last 24 hours. Patient saturating 100% on vent settings of 26/500/100/10. Hyponatremic at 128. Started NS at 50 cc/h for at least 24 hours. Repeat chemistries in the a.m. Patient's chart, labs, images were reviewed and discussed with RN A total of 2 minutes of critical care time was spent in reviewing chart, labs, and images. Discussed with RN and SW. Vitals/I&O Vitals/I&O: Vital Signs Date Time Temp Pulse Resp B/P (MAP) Pulse Ox O2 Delivery O2 Flow Rate FiO2 10/09/20 11:17 100 Ventilator 10/09/20 11:00 83 26 129/84 (99) 10/09/20 08:00 97.4 97.4 I & O 10/08/20 10/08/20 10/09/20 15:00 23:00 07:00 Intake Total 500 ml 2695 ml 1618 ml Output Total 445 ml 420 ml 420 ml Balance 55 ml 2275 ml 1198 ml Physical Exam Physical Exam: GENERAL: Morbidly obese female, intubated, sedated. On cooling blanket HEENT: Normocephalic, atraumatic. Anicteric. ET tube, OGT tube present. LUNGS: Coarse breath sounds anteriorly. HEART: S1, S2. No murmurs. ABDOMEN: Obese, soft. Bowel sounds present. Large pannus present GENITOURINARY: Wolf in place. EXTREMITIES: Trace edema, no cyanosis. DERMATOLOGIC: Warm, dry, no generalized rash. NEUROLOGIC: Intubated and sedated. Right upper extremity PICC line clean. General: Other (Intubated and sedated) Heart: Regular rate Abdomen: Soft, No tenderness Extremities: No clubbing, No cyanosis Skin: No rashes, No breakdown Labs Labs: Laboratory Tests Test 10/08/20 17:28 10/08/20 21:15 10/09/20 00:31 10/09/20 05:00 Glucose (Fingerstick) 245 mg/dL (70-99) 205 mg/dL (70-99) 179 mg/dL (70-99) White Blood Count 11.2 x10^3/uL (4.0-11.0) Red Blood Count 3.46 x10^6/uL (3.50-5.40) Hemoglobin 9.2 g/dL (12.0-15.5) Hematocrit 29.2 % (36.0-47.0) Mean Corpuscular Volume 84 fL (79-100) Mean Corpuscular Hemoglobin 27 pg (25-35) Mean Corpuscular Hemoglobin Concent 32 g/dL (31-37) Red Cell Distribution Width 14.7 % (11.5-14.5) Platelet Count 209 x10^3/uL (140-400) Neutrophils (%) (Auto) 85 % (31-73) Lymphocytes (%) (Auto) 9 % (24-48) Monocytes (%) (Auto) 5 % (0-9) Eosinophils (%) (Auto) 1 % (0-3) Basophils (%) (Auto) 1 % (0-3) Neutrophils # (Auto) 9.5 x10^3/uL (1.8-7.7) Lymphocytes # (Auto) 1.0 x10^3/uL (1.0-4.8) Monocytes # (Auto) 0.6 x10^3/uL (0.0-1.1) Eosinophils # (Auto) 0.1 x10^3/uL (0.0-0.7) Basophils # (Auto) 0.1 x10^3/uL (0.0-0.2) Test 10/09/20 06:14 10/09/20 06:15 10/09/20 08:00 Glucose (Fingerstick) 168 mg/dL (70-99) Sodium Level 128 mmol/L (136-145) Potassium Level 3.8 mmol/L (3.5-5.1) Chloride Level 97 mmol/L (98-107) Carbon Dioxide Level 25 mmol/L (21-32) Anion Gap 6 (6-14) Blood Urea Nitrogen 11 mg/dL (7-20) Creatinine 0.4 mg/dL (0.6-1.0) Estimated GFR (Cockcroft-Gault) 219.8 Glucose Level 155 mg/dL (70-99) Calcium Level 6.8 mg/dL (8.5-10.1) Total Bilirubin 0.6 mg/dL (0.2-1.0) Direct Bilirubin < 0.1 mg/dL (0.0-0.2) Aspartate Amino Transf (AST/SGOT) 49 U/L (15-37) Alanine Aminotransferase (ALT/SGPT) 129 U/L (14-59) Alkaline Phosphatase 89 U/L (46-116) Total Protein 4.8 g/dL (6.4-8.2) Albumin 1.1 g/dL (3.4-5.0) O2 Saturation 91 % (92-99) Arterial Blood pH 7.43 (7.35-7.45) Arterial Blood pCO2 at Patient Temp 43 mmHg (35-46) Arterial Blood pO2 at Patient Temp 63 mmHg (85-108) Arterial Blood HCO3 28 mmol/L (21-28) Arterial Blood Base Excess 3 mmol/L (-3-3) FiO2 100/vent Assessment and Plan Assessmemt and Plan Problems Medical Problems: (1) COVID-19 Status: Acute (2) Hypoxia Status: Acute Comment Review of Relevant I have reviewed the following items adryan (where applicable) has been applied. Justifications for Admission Other Justification AR AGUILAR MD Oct 09, 2020 12:14
[2020-10-10] VITALS (24 sets, daily range): BP systolic 91–142; BP diastolic 60–84
[2020-10-10] MEDS: MIDAZOLAM 100mg/100ml NS BAG 100 ML IV PRN ×2 (00:10→11:48)
[2020-10-10] MEDS: DEXMEDETOMIDINE 400 MCG in IV NORMAL SALINE 100ML 96 ML IV PRN ×9 (01:55→23:56)
[2020-10-10] MEDS: PROPOFOL 100 ML IV PRN ×9 (02:13→21:55)
[2020-10-10] MEDS: PIPERACILLIN/TAZOBACTAM 3.375 GM in IV NORMAL SALINE 50ML 50 ML IV SCH ×4 (05:35→23:43)
[2020-10-10] MEDS: INSULIN LISPRO 300 UNITS/3 ML VIAL. SQ SCH ×6 (05:41→18:08)
[2020-10-10 06:03] LABS: BASO % 0 % (0-3); EOS # 0.1 x10^3/uL (0.0-0.7); EOS % 0 % (0-3); HEMATOCRIT 28.9 % (36.0-47.0); LYMPH # 1.1 x10^3/uL (1.0-4.8); LYMPH % 8 % (24-48); MEAN CORPUSCULAR VOLUME 85 fL (79-100); MONO # 0.5 x10^3/uL (0.0-1.1); MONO % 4 % (0-9); NEUT # 10.9 x10^3/uL (1.8-7.7); NEUT % 87 % (31-73); PLATELET COUNT 248 x10^3/uL (140-400); RED CELL DISTRIBUTION WIDTH 14.3 % (11.5-14.5); WHITE BLOOD COUNT 12.6 x10^3/uL (4.0-11.0)
[2020-10-10] MEDS: VECURONIUM BROMIDE 50 MG in IV NORMAL SALINE 50ML 50 ML IV PRN ×2 (06:27→14:47)
[2020-10-10 07:59] LABS: HEMOGLOBIN 9.3 g/dL (12.0-15.5)
[2020-10-10 08:00] LABS: MEAN CORPUSCULAR HEMOGLOBIN 27 pg (25-35); MEAN CORPUSCULAR HGB CONC 32 g/dL (31-37)
--- NOTE | 2020-10-10 08:00 | PDOC ---
Infectious Disease Note Subjective: Subjective Patient intubated, sedated Off cooling blanket Temperature [id number] Discussed with nursing staff Vital Signs: Vital Signs Vital Signs Date Time Temp Pulse Resp B/P (MAP) Pulse Ox O2 Delivery O2 Flow Rate FiO2 10/10/20 06:00 95 25 125/82 (96) 99 Ventilator 10/10/20 04:00 99.9 99.9 10/10/20 00:25 98.0 Physical Exam: PHYSICAL EXAM GENERAL: Morbidly obese female, intubated, sedated. On cooling blanket HEENT: Normocephalic, atraumatic. Anicteric. ET tube, OGT tube present. LUNGS: Coarse breath sounds anteriorly. HEART: S1, S2. No murmurs. ABDOMEN: Obese, soft. Bowel sounds present. Large pannus present GENITOURINARY: Wolf in place. EXTREMITIES: Trace edema, no cyanosis. DERMATOLOGIC: Warm, dry, no generalized rash. NEUROLOGIC: Intubated and sedated. Right upper extremity PICC line clean. Medications: Inpatient Meds: Medications reviewed. Labs: Lab Laboratory Tests Test 10/09/20 08:00 10/09/20 12:09 10/09/20 17:46 10/09/20 23:59 O2 Saturation 91 % (92-99) Arterial Blood pH 7.43 (7.35-7.45) Arterial Blood pCO2 at Patient Temp 43 mmHg (35-46) Arterial Blood pO2 at Patient Temp 63 mmHg (85-108) Arterial Blood HCO3 28 mmol/L (21-28) Arterial Blood Base Excess 3 mmol/L (-3-3) FiO2 100/vent Glucose (Fingerstick) 212 mg/dL (70-99) 252 mg/dL (70-99) 126 mg/dL (70-99) Test 10/10/20 05:15 10/10/20 05:41 Sodium Level 129 mmol/L (136-145) Potassium Level 4.2 mmol/L (3.5-5.1) Chloride Level 97 mmol/L (98-107) Carbon Dioxide Level 24 mmol/L (21-32) Anion Gap 8 (6-14) Blood Urea Nitrogen 12 mg/dL (7-20) Creatinine 0.4 mg/dL (0.6-1.0) Estimated GFR (Cockcroft-Gault) 219.8 Glucose Level 98 mg/dL (70-99) Calcium Level 7.1 mg/dL (8.5-10.1) Glucose (Fingerstick) 112 mg/dL (70-99) Objective: Assessment: Fever improving 1. COVID-19 pneumonia. Status post remdesivir, on steroids 2. Acute hypoxic respiratory failure secondary to COVID-19.s/p intubation 3. Abnormal LFTs likely from COVID 4. Morbid obesity. 5. Diabetes mellitus. 6. Hypertension. 7. Hypokalemia.Hyponatremia Plan: Plan of Care Continue Zosyn and doxycycline Linezolid was discontinued due to high-grade fevers on 10/07/2020 Continue micafungin Follow up labs and cultures. Continue supportive care. Critically ill. Prognosis guarded Discussed with nursing staff DENYS KHALIL MD Oct 10, 2020 08:00
[2020-10-10 08:12] LABS: BASE EXCESS ABG 3 mmol/L (-3-3); HCO3 ABG 28 mmol/L (21-28); PCO2 ABG 44 mmHg (35-46); PO2 ABG 55 mmHg (85-108); SAT O2 ABG 87 % (92-99)
[2020-10-10 08:13] LABS: FIO2 ABG 90
[2020-10-10] MEDS: MULTIVITAMINS,THERAPEUTIC 5 ML ORAL LIQUID. PEG SCH (08:39)
[2020-10-10] MEDS: ASPIRIN CHEWABLE 81 MG TABLET. PO SCH (08:39)
[2020-10-10] MEDS: DEXAMETHASONE SOD PHOS 4 MG/ML VIAL IVP SCH (08:40)
[2020-10-10] MEDS: glyBURIDE 1.25 MG TABLET PO SCH ×4 (08:40→19:47)
[2020-10-10] MEDS: FAMOTIDINE 20 MG/2 ML VIAL IVP SCH ×2 (08:40→19:47)
[2020-10-10] MEDS: DOXYCYCLINE HYCLATE 100 MG TABLET PO SCH ×2 (08:41→19:47)
[2020-10-10] MEDS: ELECTROLYTE (ICU) PROTOCOL. MC SCH (09:00)
[2020-10-10] MEDS: INSULIN GLARGINE SYRINGE. SQ SCH ×2 (09:18→19:48)
[2020-10-10] MEDS: MICAFUNGIN 100 MG in IV DEXTROSE 5% 100ML 100 ML IV SCH (09:21)
[2020-10-10 09:49] LABS: CALCIUM 8.2 mg/dL (8.5-10.1); CREATININE 0.6 mg/dL (0.6-1.0); GFR 137.7; POTASSIUM 4.1 mmol/L (3.5-5.1)
--- NOTE | 2020-10-10 11:42 | PDOC ---
PULMONARY PROGRESS NOTES DATE: 10/10/20 TIME: 11:39 Subjective Remains on vent support 100% and PEEP of 10 No overnight concerns from nursing Vitals Vital Signs Date Time Temp Pulse Resp B/P (MAP) Pulse Ox O2 Delivery O2 Flow Rate FiO2 10/10/20 10:00 96 26 95/65 (75) 100 Ventilator 10/10/20 08:00 98.8 98.8 10/10/20 00:25 98.0 Comments Patient seen during pandemic sedated on vent nc at RRR accessory muscle use obese intubated No obvious rash or edema Labs Laboratory Tests Test 10/08/20 11:56 10/08/20 17:28 10/08/20 21:15 10/09/20 00:31 Glucose (Fingerstick) 200 mg/dL (70-99) 245 mg/dL (70-99) 205 mg/dL (70-99) 179 mg/dL (70-99) Test 10/09/20 05:00 10/09/20 06:14 10/09/20 06:15 10/09/20 08:00 White Blood Count 11.2 x10^3/uL (4.0-11.0) Red Blood Count 3.46 x10^6/uL (3.50-5.40) Hemoglobin 9.2 g/dL (12.0-15.5) Hematocrit 29.2 % (36.0-47.0) Mean Corpuscular Volume 84 fL (79-100) Mean Corpuscular Hemoglobin 27 pg (25-35) Mean Corpuscular Hemoglobin Concent 32 g/dL (31-37) Red Cell Distribution Width 14.7 % (11.5-14.5) Platelet Count 209 x10^3/uL (140-400) Neutrophils (%) (Auto) 85 % (31-73) Lymphocytes (%) (Auto) 9 % (24-48) Monocytes (%) (Auto) 5 % (0-9) Eosinophils (%) (Auto) 1 % (0-3) Basophils (%) (Auto) 1 % (0-3) Neutrophils # (Auto) 9.5 x10^3/uL (1.8-7.7) Lymphocytes # (Auto) 1.0 x10^3/uL (1.0-4.8) Monocytes # (Auto) 0.6 x10^3/uL (0.0-1.1) Eosinophils # (Auto) 0.1 x10^3/uL (0.0-0.7) Basophils # (Auto) 0.1 x10^3/uL (0.0-0.2) Glucose (Fingerstick) 168 mg/dL (70-99) Sodium Level 128 mmol/L (136-145) Potassium Level 3.8 mmol/L (3.5-5.1) Chloride Level 97 mmol/L (98-107) Carbon Dioxide Level 25 mmol/L (21-32) Anion Gap 6 (6-14) Blood Urea Nitrogen 11 mg/dL (7-20) Creatinine 0.4 mg/dL (0.6-1.0) Estimated GFR (Cockcroft-Gault) 219.8 Glucose Level 155 mg/dL (70-99) Calcium Level 6.8 mg/dL (8.5-10.1) Total Bilirubin 0.6 mg/dL (0.2-1.0) Direct Bilirubin < 0.1 mg/dL (0.0-0.2) Aspartate Amino Transf (AST/SGOT) 49 U/L (15-37) Alanine Aminotransferase (ALT/SGPT) 129 U/L (14-59) Alkaline Phosphatase 89 U/L (46-116) Total Protein 4.8 g/dL (6.4-8.2) Albumin 1.1 g/dL (3.4-5.0) O2 Saturation 91 % (92-99) Arterial Blood pH 7.43 (7.35-7.45) Arterial Blood pCO2 at Patient Temp 43 mmHg (35-46) Arterial Blood pO2 at Patient Temp 63 mmHg (85-108) Arterial Blood HCO3 28 mmol/L (21-28) Arterial Blood Base Excess 3 mmol/L (-3-3) FiO2 100/vent Test 10/09/20 12:09 10/09/20 17:46 10/09/20 23:59 10/10/20 05:15 Glucose (Fingerstick) 212 mg/dL (70-99) 252 mg/dL (70-99) 126 mg/dL (70-99) White Blood Count 12.6 x10^3/uL (4.0-11.0) Red Blood Count 3.40 x10^6/uL (3.50-5.40) Hemoglobin 9.3 g/dL (12.0-15.5) Hematocrit 28.9 % (36.0-47.0) Mean Corpuscular Volume 85 fL (79-100) Mean Corpuscular Hemoglobin 27 pg (25-35) Mean Corpuscular Hemoglobin Concent 32 g/dL (31-37) Red Cell Distribution Width 14.3 % (11.5-14.5) Platelet Count 248 x10^3/uL (140-400) Neutrophils (%) (Auto) 87 % (31-73) Lymphocytes (%) (Auto) 8 % (24-48) Monocytes (%) (Auto) 4 % (0-9) Eosinophils (%) (Auto) 0 % (0-3) Basophils (%) (Auto) 0 % (0-3) Neutrophils # (Auto) 10.9 x10^3/uL (1.8-7.7) Lymphocytes # (Auto) 1.1 x10^3/uL (1.0-4.8) Monocytes # (Auto) 0.5 x10^3/uL (0.0-1.1) Eosinophils # (Auto) 0.1 x10^3/uL (0.0-0.7) Basophils # (Auto) 0.0 x10^3/uL (0.0-0.2) Test 10/10/20 05:41 10/10/20 08:08 10/10/20 09:15 Glucose (Fingerstick) 112 mg/dL (70-99) O2 Saturation 87 % (92-99) Arterial Blood pH 7.42 (7.35-7.45) Arterial Blood pCO2 at Patient Temp 44 mmHg (35-46) Arterial Blood pO2 at Patient Temp 55 mmHg (85-108) Arterial Blood HCO3 28 mmol/L (21-28) Arterial Blood Base Excess 3 mmol/L (-3-3) FiO2 90 Sodium Level 137 mmol/L (136-145) Potassium Level 4.1 mmol/L (3.5-5.1) Chloride Level 103 mmol/L (98-107) Carbon Dioxide Level 32 mmol/L (21-32) Anion Gap 2 (6-14) Blood Urea Nitrogen 15 mg/dL (7-20) Creatinine 0.6 mg/dL (0.6-1.0) Estimated GFR (Cockcroft-Gault) 137.7 Glucose Level 130 mg/dL (70-99) Calcium Level 8.2 mg/dL (8.5-10.1) Laboratory Tests Test 10/09/20 12:09 10/09/20 17:46 10/09/20 23:59 10/10/20 05:15 Glucose (Fingerstick) 212 mg/dL (70-99) 252 mg/dL (70-99) 126 mg/dL (70-99) White Blood Count 12.6 x10^3/uL (4.0-11.0) Red Blood Count 3.40 x10^6/uL (3.50-5.40) Hemoglobin 9.3 g/dL (12.0-15.5) Hematocrit 28.9 % (36.0-47.0) Mean Corpuscular Volume 85 fL (79-100) Mean Corpuscular Hemoglobin 27 pg (25-35) Mean Corpuscular Hemoglobin Concent 32 g/dL (31-37) Red Cell Distribution Width 14.3 % (11.5-14.5) Platelet Count 248 x10^3/uL (140-400) Neutrophils (%) (Auto) 87 % (31-73) Lymphocytes (%) (Auto) 8 % (24-48) Monocytes (%) (Auto) 4 % (0-9) Eosinophils (%) (Auto) 0 % (0-3) Basophils (%) (Auto) 0 % (0-3) Neutrophils # (Auto) 10.9 x10^3/uL (1.8-7.7) Lymphocytes # (Auto) 1.1 x10^3/uL (1.0-4.8) Monocytes # (Auto) 0.5 x10^3/uL (0.0-1.1) Eosinophils # (Auto) 0.1 x10^3/uL (0.0-0.7) Basophils # (Auto) 0.0 x10^3/uL (0.0-0.2) Test 10/10/20 05:41 10/10/20 08:08 10/10/20 09:15 Glucose (Fingerstick) 112 mg/dL (70-99) O2 Saturation 87 % (92-99) Arterial Blood pH 7.42 (7.35-7.45) Arterial Blood pCO2 at Patient Temp 44 mmHg (35-46) Arterial Blood pO2 at Patient Temp 55 mmHg (85-108) Arterial Blood HCO3 28 mmol/L (21-28) Arterial Blood Base Excess 3 mmol/L (-3-3) FiO2 90 Sodium Level 137 mmol/L (136-145) Potassium Level 4.1 mmol/L (3.5-5.1) Chloride Level 103 mmol/L (98-107) Carbon Dioxide Level 32 mmol/L (21-32) Anion Gap 2 (6-14) Blood Urea Nitrogen 15 mg/dL (7-20) Creatinine 0.6 mg/dL (0.6-1.0) Estimated GFR (Cockcroft-Gault) 137.7 Glucose Level 130 mg/dL (70-99) Calcium Level 8.2 mg/dL (8.5-10.1) Medications Active Scripts Medications Dose Route/Sig Max Daily Dose Days Date Category Fluoxetine Hcl 60 Mg Tablet 1 Tab PO DAILY 09/30/20 Reported Losartan Potassium 50 Mg Tablet 1 Tab PO DAILY 09/30/20 Reported Hydrochlorothiazide 25 Mg Tablet 1 Tab PO DAILY 09/30/20 Reported Labetalol Hcl 200 Mg Tablet 1 Tab PO BID 12/28/14 Rx Lasix (Furosemide) 20 Mg Tablet 1 Tab PO DAILY 12/28/14 Rx Percocet 5-325 Mg Tablet (Oxycodone/Acetaminophen) 1 Each Tablet 1 Tab PO Q4HRS W/A 12/28/14 Rx Ibuprofen 800 Mg Tablet 800 Mg PO Q6H PRN 12/28/14 Rx Methyldopa 500 Mg Tablet 500 Mg PO QID 12/23/14 Reported Zoloft (Sertraline Hcl) 25 Mg Tablet 25 Mg .ROUTE DAILY 12/23/14 Reported Glyburide 2.5 Mg Tablet 2.5 Mg PO QID 12/23/14 Reported Procardia (Nifedipine) 10 Mg Capsule 60 Mg PO DAILY 12/23/14 Reported Tylenol (Acetaminophen) 325 Mg Tablet 325 Mg PO 08/25/13 Reported Prena1 Plus Combo Pack ( No.39/Iron/Fa #6/Dha) 1 Each Combo..pkg 1 Each PO 08/25/13 Reported Comments Chest x-ray reviewed 10/08. No change in bilateral interstitial infiltrates. cxr 10/06 reviewed, b lat infilt increased ett too high Chest x-ray reviewed dated 10/03/2020. Extensive bilateral infiltrates. Slightly decreased in the right lower lobe. Impression . IMPRESSION: 1. Acute hypoxic respiratory failure secondary to COVID-19 viral pneumonia/ARDS/acute lung injury.----- worsening,now intubated 10/01/20. 2. Underlying morbid obesity with a BMI of 58, is another main contributing factor to the severity of hypoxia. 3. No significant tobacco history. 4. Abnormal chest x-ray with bilateral interstitial infiltrates consistent with viral pneumonia. 5. electrolyte abnl resolved 6. High-grade fever secondary to COVID-19 viral infection. Currently covered with broad-spectrum antibiotic per infectious disease recommendation. Plan . Updated 10/10/2020 Continue current vent support 26/500/100/10 Continue adequate sedation, on paralytics Follow CXR/ ABG- no change stoday Follow ID recommendations in regards to antibiotics DC steroids for full 10-day course, started on 09/30/2020 Continue remdesivir for full course Continue tube feeding for nutritional support DVT/GI prophylaxis:lovenox Discussed with RN and RT Critical care time 30 minutes Updated 10/09/2020 Continue current vent support 26/500/100/10 Continue adequate sedation, on paralytics Follow ID recommendations in regards to antibiotics, currently on Zosyn, doxy, Naomy, Follow cultures Continue IV steroids for full 10-day course, started on 09/30/2020 Continue remdesivir for full course Continue tube feeding for nutritional support DVT/GI prophylaxis:lovenox Discussed with RN and RT Have talked to patient's brother Thony 10/08. Explained to him about her critical condition. All questions answered. Critical care time 30 minutes Updated 10/08/2020 Continue current vent support 26/500/100/10 Continue adequate sedation, on paralytics Follow ID recommendations in regards to antibiotics, currently on Zosyn, doxy, Naomy, Follow cultures Continue IV steroids for full 10-day course, started on 09/30/2020 Continue remdesivir for full course Continue tube feeding for nutritional support DVT/GI prophylaxis:lovenox Discussed with RN and RT Have talked to patient's brother Thony. Explained to him about her critical condition. All questions answered. Critical care time 30 minutes NILO CURTIS MD Oct 10, 2020 11:42
--- NOTE | 2020-10-10 12:33 | PDOC ---
[employer] PROGRESS NOTE Date of Service DOS: DATE: 10/10/20 TIME: 12:31 Chief Complaint Chief Complaint Covid 19 pneumonia/ ARDS Viral sepsis Acute hypoxic resp failure Super morbid obesity Extensive pulmonary opacities with areas of consolidation // multilobar pneumonia versus noncardiogenic pulmonary edema from ARDS Hyponatremia plan ADMIT ICU BED Consult pulmonary dvt prophylaxis Vapotherm 40 L 100% with additional 100% nonrebreather, plan intubation 8-16 IV STEROIDS COVID 19 PROTOCOL IV DOXYCYCLINE 100MG BID SERIAL CXR Critically ill History of Present Illness History of Present Illness 34 year old female past medical history hypertension diabetes presented with a chief complaint of shortness of breath. diagnosed with COVID-19 this past Thursday. in er c/o shortness of breath cough fever muscle aches x1 week. //not vaccinated against COVID-19. Patient states over the last 2 days shortness of breath is progressed to become worse. Patient states she cannot catch her breath therefore she called 911. Upon EMS arrival patient's oxygen saturation in the upper 80s on room air. On arrival in ER patient patient on 15 L nonrebreather NOW IN NEED OF INTUBATION FOR Covid 19 pneumonia // Viral sepsis Acute hypoxic resp failure Super morbid obesity CXR C/W Extensive pulmonary opacities with areas of consolidation // multilobar pneumonia versus noncardiogenic pulmonary edema from ARDS. 10/02/2020: Afe low-grade fever in ICU yesterday (99.6 F). Intubated in ICU yesterday, on vent with FiO2 100%, PEEP 8. She was initiated on remdesivir. We will continue treatment with IV steroids and antibiotics. Still hyperglycemic today; will adjust insulin. Appreciate pulmonology recommendations and management patient. Critical care time 30 minutes spent reviewing charts, revi rice labs, examination, discussion with RN. 10/03/2020: Febrile overnight with T-max 101.1 F. On vent with FiO2 100%, PEEP 8. Chest x-ray today showed extensive pulmonary infiltrates again demonstrated with some improved aeration at the left perihilar upper lobe and lingula. Morning labs pending at this time. Continue IV antibiotics. Continue IV Decadron to complete 10-day treatment. Continue supportive care. Critical care time 30 minutes spent reviewing charts, reviewing labs, reviewing imaging, and discussion with RN. 10/04/2020: Febrile overnight with T-max 100.3 F. On ventilator with FiO2 100%, PEEP 8. Last dose of remdesivir today. Continue IV antibiotics. Continue IV Decadron to complete 10-day treatment. Continue supportive care. Critical care time 30 minutes spent reviewing charts, reviewing labs, reviewing imaging, and discussion with RN. 10/05/2020: Afebrile overnight. On vent with FiO2 100%, PEEP 8. She has completed remdesivir. We will continue with IV steroids and IV antibiotics to complete 10- day treatment (last day should be 10/11/2020). Continue supportive care. Critical care time 30 minutes spent reviewing charts, reviewing labs, reviewing imaging, and discussion with RN. 10/06/2020: Febrile overnight with T-max 100.3 F. On vent with FiO2 100%, PEEP 8. WBC 15.1. Continue Tylenol as needed (rectal suppository prn if needed). We will continue with IV steroids and IV antibiotics to complete 10-day treatment (last day should be 10/11/2020). Continue supportive care. Critical care time 30 minutes spent reviewing charts, reviewing labs, reviewing imaging, and discussion with RN. 10/07/2020: Febrile overnight with T-max 104.9 F. CRP significantly elevated. Discussed with pharmacy, no abdominal available at this time. Continue Tylenol as needed (rectal suppository prn if needed). Cooling blanket as needed. Chest x-ray yesterday showed increased diffuse pulmonary consolidations. Will continue with IV steroids and IV antibiotics to complete 10-day treatment (last day should be 10/11/2020). Continue supportive care. Critical care time 30 minutes spent reviewing charts, reviewing labs, reviewing imaging, and discussion with RN. 10/08/2020 No acute events overnight. T-max of 100.1 in the last 24 hours. Chest x-ray shows no acute change. Currently saturating 100% on vent settings of 26/500/100/10. Patient's chart, labs, images were reviewed and discussed with RN. A total of 34 minutes of critical care time was spent in reviewing chart, labs, and images. Discussed with RN and SW. 10/09/2020 Patient seen and examined bedside. Afebrile in the last 24 hours. Patient saturating 100% on vent settings of 26/500/100/10. Hyponatremic at 128. Started NS at 50 cc/h for at least 24 hours. Repeat chemistries in the a.m. Patient's chart, labs, images were reviewed and discussed with RN A total of 32 minutes of critical care time was spent in reviewing chart, labs, and images. Discussed with RN and VINCE. 10/10/2020 No acute events overnight. T-max of 100.1. Patient currently saturating 99% on vent settings of 26/500/100/10. Continues to have hyponatremia of 129. We will continue NS fluids. Repeat chemistries in the a.m. Patient's chart, labs, images were reviewed and discussed with RN A total of 31 minutes of critical care time was spent in reviewing chart, labs, and images. Discussed with RN and SW. Vitals/I&O Vitals/I&O: Vital Signs Date Time Temp Pulse Resp B/P (MAP) Pulse Ox O2 Delivery O2 Flow Rate FiO2 10/10/20 11:57 100 Ventilator 10/10/20 10:00 96 26 95/65 (75) 10/10/20 08:00 98.8 98.8 10/10/20 00:25 98.0 I & O 10/09/20 10/09/20 10/10/20 15:00 23:00 07:00 Intake Total 620 ml 3916 ml 1656 ml Output Total 1150 ml 1075 ml 225 ml Balance -530 ml 2841 ml 1431 ml Physical Exam Physical Exam: GENERAL: Morbidly obese female, intubated, sedated. On cooling blanket HEENT: Normocephalic, atraumatic. Anicteric. ET tube, OGT tube present. LUNGS: Coarse breath sounds anteriorly. HEART: S1, S2. No murmurs. ABDOMEN: Obese, soft. Bowel sounds present. Large pannus present GENITOURINARY: Wolf in place. EXTREMITIES: Trace edema, no cyanosis. DERMATOLOGIC: Warm, dry, no generalized rash. NEUROLOGIC: Intubated and sedated. Right upper extremity PICC line clean. General: Other (Intubated and sedated) Heart: Regular rate Abdomen: Soft, No tenderness Extremities: No clubbing, No cyanosis Skin: No rashes, No breakdown Labs Labs: Laboratory Tests Test 10/09/20 17:46 10/09/20 23:59 10/10/20 05:15 10/10/20 05:41 Glucose (Fingerstick) 252 mg/dL (70-99) 126 mg/dL (70-99) 112 mg/dL (70-99) White Blood Count 12.6 x10^3/uL (4.0-11.0) Red Blood Count 3.40 x10^6/uL (3.50-5.40) Hemoglobin 9.3 g/dL (12.0-15.5) Hematocrit 28.9 % (36.0-47.0) Mean Corpuscular Volume 85 fL (79-100) Mean Corpuscular Hemoglobin 27 pg (25-35) Mean Corpuscular Hemoglobin Concent 32 g/dL (31-37) Red Cell Distribution Width 14.3 % (11.5-14.5) Platelet Count 248 x10^3/uL (140-400) Neutrophils (%) (Auto) 87 % (31-73) Lymphocytes (%) (Auto) 8 % (24-48) Monocytes (%) (Auto) 4 % (0-9) Eosinophils (%) (Auto) 0 % (0-3) Basophils (%) (Auto) 0 % (0-3) Neutrophils # (Auto) 10.9 x10^3/uL (1.8-7.7) Lymphocytes # (Auto) 1.1 x10^3/uL (1.0-4.8) Monocytes # (Auto) 0.5 x10^3/uL (0.0-1.1) Eosinophils # (Auto) 0.1 x10^3/uL (0.0-0.7) Basophils # (Auto) 0.0 x10^3/uL (0.0-0.2) Test 10/10/20 08:08 10/10/20 09:15 10/10/20 11:43 O2 Saturation 87 % (92-99) Arterial Blood pH 7.42 (7.35-7.45) Arterial Blood pCO2 at Patient Temp 44 mmHg (35-46) Arterial Blood pO2 at Patient Temp 55 mmHg (85-108) Arterial Blood HCO3 28 mmol/L (21-28) Arterial Blood Base Excess 3 mmol/L (-3-3) FiO2 90 Sodium Level 137 mmol/L (136-145) Potassium Level 4.1 mmol/L (3.5-5.1) Chloride Level 103 mmol/L (98-107) Carbon Dioxide Level 32 mmol/L (21-32) Anion Gap 2 (6-14) Blood Urea Nitrogen 15 mg/dL (7-20) Creatinine 0.6 mg/dL (0.6-1.0) Estimated GFR (Cockcroft-Gault) 137.7 Glucose Level 130 mg/dL (70-99) Calcium Level 8.2 mg/dL (8.5-10.1) Glucose (Fingerstick) 140 mg/dL (70-99) Assessment and Plan Assessmemt and Plan Problems Medical Problems: (1) COVID-19 Status: Acute (2) Hypoxia Status: Acute Comment Review of Relevant I have reviewed the following items adryan (where applicable) has been applied. Justifications for Admission Other Justification AR AGUILAR MD Oct 10, 2020 12:33
--- NOTE | 2020-10-10 15:43 | NUR ---
SS following up with discharge planning. SS reviewed pt chart and discussed with pt RN. Pt is currently on the vent at 100%. COVID19 positive. Pt on IV Zosyn, IV Micafungin, and PO Doxycycline. Pt on Fentanyl, Versed, Propofol, Precedex, and Vec. Not stable. SS will continue to follow for discharge planning.
[2020-10-10] MEDS: ACETAMINOPHEN 650 MG/20.3 ML SOLUTION. PEG PRN (16:11)
[2020-10-10] MEDS: fentaNYL HIGH DOSE PCA 55 ML IV PRN (18:36)
[2020-10-11] VITALS (24 sets, daily range): BP systolic 99–111; BP diastolic 67–73
[2020-10-11] MEDS: ACETAMINOPHEN 650 MG/20.3 ML SOLUTION. PEG PRN (00:26)
[2020-10-11] MEDS: PROPOFOL 100 ML IV PRN ×11 (00:28→22:16)
[2020-10-11] MEDS: MIDAZOLAM 100mg/100ml NS BAG 100 ML IV PRN ×2 (00:29→13:30)
[2020-10-11] MEDS: VECURONIUM BROMIDE 50 MG in IV NORMAL SALINE 50ML 50 ML IV PRN ×3 (00:34→21:39)
[2020-10-11] MEDS: DEXMEDETOMIDINE 400 MCG in IV NORMAL SALINE 100ML 96 ML IV PRN ×6 (02:46→21:40)
[2020-10-11] MEDS: PIPERACILLIN/TAZOBACTAM 3.375 GM in IV NORMAL SALINE 50ML 50 ML IV SCH (05:49)
[2020-10-11] MEDS: INSULIN LISPRO 300 UNITS/3 ML VIAL. SQ SCH ×10 (06:00→23:37)
[2020-10-11] MEDS: glyBURIDE 1.25 MG TABLET PO SCH (07:30)
--- NOTE | 2020-10-11 08:00 | PDOC ---
Infectious Disease Note Subjective: Subjective Patient intubated, sedated Temperature [id number] FiO2 100% PEEP 10 Discussed with nursing staff Vital Signs: Vital Signs Vital Signs Date Time Temp Pulse Resp B/P (MAP) Pulse Ox O2 Delivery O2 Flow Rate FiO2 10/11/20 06:00 100.1 92 25 100/71 (81) 88 Ventilator 100.1 10/10/20 18:36 98.0 Physical Exam: PHYSICAL EXAM GENERAL: Morbidly obese female, intubated, sedated. On cooling blanket HEENT: Normocephalic, atraumatic. Anicteric. ET tube, OGT tube present. LUNGS: Coarse breath sounds anteriorly. HEART: S1, S2. No murmurs. ABDOMEN: Obese, soft. Bowel sounds present. Large pannus present GENITOURINARY: Wolf in place. Changed on October 10 EXTREMITIES: Trace edema, no cyanosis. DERMATOLOGIC: Warm, dry, no generalized rash. NEUROLOGIC: Intubated and sedated. Right upper extremity PICC line clean. Medications: Inpatient Meds: Medications reviewed. Labs: Lab Laboratory Tests Test 10/10/20 08:08 10/10/20 09:15 10/10/20 11:43 10/10/20 17:25 O2 Saturation 87 % (92-99) Arterial Blood pH 7.42 (7.35-7.45) Arterial Blood pCO2 at Patient Temp 44 mmHg (35-46) Arterial Blood pO2 at Patient Temp 55 mmHg (85-108) Arterial Blood HCO3 28 mmol/L (21-28) Arterial Blood Base Excess 3 mmol/L (-3-3) FiO2 90 Sodium Level 137 mmol/L (136-145) Potassium Level 4.1 mmol/L (3.5-5.1) Chloride Level 103 mmol/L (98-107) Carbon Dioxide Level 32 mmol/L (21-32) Anion Gap 2 (6-14) Blood Urea Nitrogen 15 mg/dL (7-20) Creatinine 0.6 mg/dL (0.6-1.0) Estimated GFR (Cockcroft-Gault) 137.7 Glucose Level 130 mg/dL (70-99) Calcium Level 8.2 mg/dL (8.5-10.1) Glucose (Fingerstick) 140 mg/dL (70-99) 240 mg/dL (70-99) Test 10/10/20 20:01 10/10/20 23:51 10/11/20 05:57 Glucose (Fingerstick) 180 mg/dL (70-99) 81 mg/dL (70-99) 108 mg/dL (70-99) Objective: Assessment: Fever improving 1. COVID-19 pneumonia. Status post remdesivir, on steroids 2. Acute hypoxic respiratory failure secondary to COVID-19.s/p intubation 3. Abnormal LFTs likely from COVID 4. Morbid obesity. 5. Diabetes mellitus. 6. Hypertension. 7. Hypokalemia.Hyponatremia Plan: Plan of Care Cultures remain nonrevealing Wolf changed October 10 Change Zosyn to Merrem Linezolid was discontinued due to high-grade fevers of 105*F on 10/07/2020 Continue doxycycline Continue micafungin Follow up labs and cultures. Continue supportive care. Critically ill. Prognosis poor Discussed with nursing staff DENYS KHALIL MD Oct 11, 2020 07:59
[2020-10-11] MEDS: ELECTROLYTE (ICU) PROTOCOL. MC SCH (09:00)
[2020-10-11 09:16] LABS: BASE EXCESS ABG 2 mmol/L (-3-3); HCO3 ABG 26 mmol/L (21-28); PCO2 ABG 43 mmHg (35-46); PO2 ABG 55 mmHg (85-108); SAT O2 ABG 87 % (92-99)
[2020-10-11] MEDS: DOXYCYCLINE HYCLATE 100 MG TABLET PO SCH ×2 (09:16→20:44)
[2020-10-11] MEDS: ASPIRIN CHEWABLE 81 MG TABLET. PO SCH (09:16)
[2020-10-11] MEDS: MULTIVITAMINS,THERAPEUTIC 5 ML ORAL LIQUID. PEG SCH (09:16)
[2020-10-11] MEDS: FAMOTIDINE 20 MG/2 ML VIAL IVP SCH ×2 (09:17→20:44)
[2020-10-11 09:20] LABS: FIO2 ABG 100
[2020-10-11] MEDS: INSULIN GLARGINE SYRINGE. SQ SCH ×2 (09:20→21:24)
[2020-10-11] MEDS: MICAFUNGIN 100 MG in IV DEXTROSE 5% 100ML 100 ML IV SCH (11:03)
--- NOTE | 2020-10-11 12:05 | PDOC ---
PULMONARY PROGRESS NOTES DATE: 10/11/20 TIME: 12:01 Subjective Remains on vent support 100% and PEEP of 10 Febrile hypoxia on examination, oxygen saturations 86% No overnight concerns from nursing Vitals Vital Signs Date Time Temp Pulse Resp B/P (MAP) Pulse Ox O2 Delivery O2 Flow Rate FiO2 10/11/20 09:55 84 Ventilator 10/11/20 06:00 100.1 92 25 100/71 (81) 100.1 10/10/20 18:36 98.0 Comments Patient seen during ID pandemic sedated on vent nc at RRR accessory muscle use obese intubated No obvious rash or edema Labs Laboratory Tests Test 10/09/20 12:09 10/09/20 17:46 10/09/20 23:59 10/10/20 05:15 Glucose (Fingerstick) 212 mg/dL (70-99) 252 mg/dL (70-99) 126 mg/dL (70-99) White Blood Count 12.6 x10^3/uL (4.0-11.0) Red Blood Count 3.40 x10^6/uL (3.50-5.40) Hemoglobin 9.3 g/dL (12.0-15.5) Hematocrit 28.9 % (36.0-47.0) Mean Corpuscular Volume 85 fL (79-100) Mean Corpuscular Hemoglobin 27 pg (25-35) Mean Corpuscular Hemoglobin Concent 32 g/dL (31-37) Red Cell Distribution Width 14.3 % (11.5-14.5) Platelet Count 248 x10^3/uL (140-400) Neutrophils (%) (Auto) 87 % (31-73) Lymphocytes (%) (Auto) 8 % (24-48) Monocytes (%) (Auto) 4 % (0-9) Eosinophils (%) (Auto) 0 % (0-3) Basophils (%) (Auto) 0 % (0-3) Neutrophils # (Auto) 10.9 x10^3/uL (1.8-7.7) Lymphocytes # (Auto) 1.1 x10^3/uL (1.0-4.8) Monocytes # (Auto) 0.5 x10^3/uL (0.0-1.1) Eosinophils # (Auto) 0.1 x10^3/uL (0.0-0.7) Basophils # (Auto) 0.0 x10^3/uL (0.0-0.2) Test 10/10/20 05:41 10/10/20 08:08 10/10/20 09:15 10/10/20 11:43 Glucose (Fingerstick) 112 mg/dL (70-99) 140 mg/dL (70-99) O2 Saturation 87 % (92-99) Arterial Blood pH 7.42 (7.35-7.45) Arterial Blood pCO2 at Patient Temp 44 mmHg (35-46) Arterial Blood pO2 at Patient Temp 55 mmHg (85-108) Arterial Blood HCO3 28 mmol/L (21-28) Arterial Blood Base Excess 3 mmol/L (-3-3) FiO2 90 Sodium Level 137 mmol/L (136-145) Potassium Level 4.1 mmol/L (3.5-5.1) Chloride Level 103 mmol/L (98-107) Carbon Dioxide Level 32 mmol/L (21-32) Anion Gap 2 (6-14) Blood Urea Nitrogen 15 mg/dL (7-20) Creatinine 0.6 mg/dL (0.6-1.0) Estimated GFR (Cockcroft-Gault) 137.7 Glucose Level 130 mg/dL (70-99) Plasma/Serum Osmolality 288 mOsmol/kg (275-295) Calcium Level 8.2 mg/dL (8.5-10.1) Test 10/10/20 17:25 10/10/20 20:01 10/10/20 23:51 10/11/20 05:57 Glucose (Fingerstick) 240 mg/dL (70-99) 180 mg/dL (70-99) 81 mg/dL (70-99) 108 mg/dL (70-99) Test 10/11/20 08:00 O2 Saturation 87 % (92-99) Arterial Blood pH 7.41 (7.35-7.45) Arterial Blood pCO2 at Patient Temp 43 mmHg (35-46) Arterial Blood pO2 at Patient Temp 55 mmHg (85-108) Arterial Blood HCO3 26 mmol/L (21-28) Arterial Blood Base Excess 2 mmol/L (-3-3) FiO2 100 Laboratory Tests Test 10/10/20 17:25 10/10/20 20:01 10/10/20 23:51 10/11/20 05:57 Glucose (Fingerstick) 240 mg/dL (70-99) 180 mg/dL (70-99) 81 mg/dL (70-99) 108 mg/dL (70-99) Test 10/11/20 08:00 O2 Saturation 87 % (92-99) Arterial Blood pH 7.41 (7.35-7.45) Arterial Blood pCO2 at Patient Temp 43 mmHg (35-46) Arterial Blood pO2 at Patient Temp 55 mmHg (85-108) Arterial Blood HCO3 26 mmol/L (21-28) Arterial Blood Base Excess 2 mmol/L (-3-3) FiO2 100 Medications Active Scripts Medications Dose Route/Sig Max Daily Dose Days Date Category Fluoxetine Hcl 60 Mg Tablet 1 Tab PO DAILY 09/30/20 Reported Losartan Potassium 50 Mg Tablet 1 Tab PO DAILY 09/30/20 Reported Hydrochlorothiazide 25 Mg Tablet 1 Tab PO DAILY 09/30/20 Reported Labetalol Hcl 200 Mg Tablet 1 Tab PO BID 12/28/14 Rx Lasix (Furosemide) 20 Mg Tablet 1 Tab PO DAILY 12/28/14 Rx Percocet 5-325 Mg Tablet (Oxycodone/Acetaminophen) 1 Each Tablet 1 Tab PO Q4HRS W/A 12/28/14 Rx Ibuprofen 800 Mg Tablet 800 Mg PO Q6H PRN 12/28/14 Rx Methyldopa 500 Mg Tablet 500 Mg PO QID 12/23/14 Reported Zoloft (Sertraline Hcl) 25 Mg Tablet 25 Mg .ROUTE DAILY 12/23/14 Reported Glyburide 2.5 Mg Tablet 2.5 Mg PO QID 12/23/14 Reported Procardia (Nifedipine) 10 Mg Capsule 60 Mg PO DAILY 12/23/14 Reported Tylenol (Acetaminophen) 325 Mg Tablet 325 Mg PO 08/25/13 Reported Prena1 Plus Combo Pack ( No.39/Iron/Fa #6/Dha) 1 Each Combo..pkg 1 Each PO 08/25/13 Reported Comments Chest x-ray reviewed 10/08. No change in bilateral interstitial infiltrates. cxr 10/06 reviewed, b lat infilt increased ett too high Chest x-ray reviewed dated 10/03/2020. Extensive bilateral infiltrates. Slightly decreased in the right lower lobe. Impression . IMPRESSION: 1. Acute hypoxic respiratory failure secondary to COVID-19 viral pneumonia/ARDS/acute lung injury.----- worsening,now intubated 10/01/20. 2. Underlying morbid obesity with a BMI of 58, is another main contributing factor to the severity of hypoxia. 3. No significant tobacco history. 4. Abnormal chest x-ray with bilateral interstitial infiltrates consistent with viral pneumonia. 5. electrolyte abnl resolved 6. High-grade fever secondary to COVID-19 viral infection. Currently covered with broad-spectrum antibiotic per infectious disease recommendation. Plan . Updated 10/11/2020 Continue current vent support 26/500/100/10, increase PEEP to 12 Continue adequate sedation, on paralytics Follow CXR/ ABG-increase PEEP Follow ID recommendations in regards to antibiotics S/P remdesivir for full course, she has also completed full course of steroids Continue tube feeding for nutritional support DVT/GI prophylaxis:lovenox Discussed with RN and RT Critical care time 30 minutes TERRY HERNDON APRN Oct 11, 2020 12:04
[2020-10-11 12:12] LABS: BASO # 0.1 x10^3/uL (0.0-0.2); BASO % 0 % (0-3); EOS % 0 % (0-3); HEMATOCRIT 30.3 % (36.0-47.0); HEMOGLOBIN 10.1 g/dL (12.0-15.5); LYMPH # 1.1 x10^3/uL (1.0-4.8); LYMPH % 8 % (24-48); MEAN CORPUSCULAR HEMOGLOBIN 28 pg (25-35); MEAN CORPUSCULAR HGB CONC 33 g/dL (31-37); MEAN CORPUSCULAR VOLUME 84 fL (79-100); MONO # 0.8 x10^3/uL (0.0-1.1); MONO % 5 % (0-9); NEUT # 12.5 x10^3/uL (1.8-7.7); NEUT % 86 % (31-73); PLATELET COUNT 289 x10^3/uL (140-400); RED BLOOD COUNT 3.61 x10^6/uL (3.50-5.40); RED CELL DISTRIBUTION WIDTH 14.5 % (11.5-14.5); WHITE BLOOD COUNT 14.5 x10^3/uL (4.0-11.0)
[2020-10-11 12:31] LABS: CALCIUM 8.4 mg/dL (8.5-10.1); CREATININE 0.6 mg/dL (0.6-1.0); GFR 137.7; MAGNESIUM 2.1 mg/dL (1.8-2.4); POTASSIUM 4.2 mmol/L (3.5-5.1)
[2020-10-11] MEDS ORDERED: MINERAL OIL/PETROLATUM,WHITE OPHTH OINT 3.5GM TUBE. OU PRN (13:00)
[2020-10-11 13:13] LABS: URINE OSMOLALITY 180 mOsmol/kg (.)
[2020-10-11] MEDS: fentaNYL HIGH DOSE PCA 55 ML IV PRN (13:19)
--- NOTE | 2020-10-11 13:19 | PDOC ---
[employer] PROGRESS NOTE Date of Service DOS: DATE: 10/11/20 TIME: 13:17 Chief Complaint Chief Complaint Covid 19 pneumonia/ ARDS Viral sepsis Acute hypoxic resp failure Super morbid obesity Extensive pulmonary opacities with areas of consolidation // multilobar pneumonia versus noncardiogenic pulmonary edema from ARDS Hyponatremia plan ADMIT ICU BED Consult pulmonary dvt prophylaxis Vapotherm 40 L 100% with additional 100% nonrebreather, plan intubation 8-16 IV STEROIDS COVID 19 PROTOCOL IV DOXYCYCLINE 100MG BID SERIAL CXR Critically ill History of Present Illness History of Present Illness 34 year old female past medical history hypertension diabetes presented with a chief complaint of shortness of breath. diagnosed with COVID-19 this past Thursday. in er c/o shortness of breath cough fever muscle aches x1 week. //not vaccinated against COVID-19. Patient states over the last 2 days shortness of breath is progressed to become worse. Patient states she cannot catch her breath therefore she called 911. Upon EMS arrival patient's oxygen saturation in the upper 80s on room air. On arrival in ER patient patient on 15 L nonrebreather NOW IN NEED OF INTUBATION FOR Covid 19 pneumonia // Viral sepsis Acute hypoxic resp failure Super morbid obesity CXR C/W Extensive pulmonary opacities with areas of consolidation // multilobar pneumonia versus noncardiogenic pulmonary edema from ARDS. 10/02/2020: Afe low-grade fever in ICU yesterday (99.6 F). Intubated in ICU yesterday, on vent with FiO2 100%, PEEP 8. She was initiated on remdesivir. We will continue treatment with IV steroids and antibiotics. Still hyperglycemic today; will adjust insulin. Appreciate pulmonology recommendations and management patient. Critical care time 30 minutes spent reviewing charts, revi rice labs, examination, discussion with RN. 10/03/2020: Febrile overnight with T-max 101.1 F. On vent with FiO2 100%, PEEP 8. Chest x-ray today showed extensive pulmonary infiltrates again demonstrated with some improved aeration at the left perihilar upper lobe and lingula. Morning labs pending at this time. Continue IV antibiotics. Continue IV Decadron to complete 10-day treatment. Continue supportive care. Critical care time 30 minutes spent reviewing charts, reviewing labs, reviewing imaging, and discussion with RN. 10/04/2020: Febrile overnight with T-max 100.3 F. On ventilator with FiO2 100%, PEEP 8. Last dose of remdesivir today. Continue IV antibiotics. Continue IV Decadron to complete 10-day treatment. Continue supportive care. Critical care time 30 minutes spent reviewing charts, reviewing labs, reviewing imaging, and discussion with RN. 10/05/2020: Afebrile overnight. On vent with FiO2 100%, PEEP 8. She has completed remdesivir. We will continue with IV steroids and IV antibiotics to complete 10- day treatment (last day should be 10/11/2020). Continue supportive care. Critical care time 30 minutes spent reviewing charts, reviewing labs, reviewing imaging, and discussion with RN. 10/06/2020: Febrile overnight with T-max 100.3 F. On vent with FiO2 100%, PEEP 8. WBC 15.1. Continue Tylenol as needed (rectal suppository prn if needed). We will continue with IV steroids and IV antibiotics to complete 10-day treatment (last day should be 10/11/2020). Continue supportive care. Critical care time 30 minutes spent reviewing charts, reviewing labs, reviewing imaging, and discussion with RN. 10/07/2020: Febrile overnight with T-max 104.9 F. CRP significantly elevated. Discussed with pharmacy, no abdominal available at this time. Continue Tylenol as needed (rectal suppository prn if needed). Cooling blanket as needed. Chest x-ray yesterday showed increased diffuse pulmonary consolidations. Will continue with IV steroids and IV antibiotics to complete 10-day treatment (last day should be 10/11/2020). Continue supportive care. Critical care time 30 minutes spent reviewing charts, reviewing labs, reviewing imaging, and discussion with RN. 10/08/2020 No acute events overnight. T-max of 100.1 in the last 24 hours. Chest x-ray shows no acute change. Currently saturating 100% on vent settings of 26/500/100/10. Patient's chart, labs, images were reviewed and discussed with RN. A total of 34 minutes of critical care time was spent in reviewing chart, labs, and images. Discussed with RN and SW. 10/09/2020 Patient seen and examined bedside. Afebrile in the last 24 hours. Patient saturating 100% on vent settings of 26/500/100/10. Hyponatremic at 128. Started NS at 50 cc/h for at least 24 hours. Repeat chemistries in the a.m. Patient's chart, labs, images were reviewed and discussed with RN A total of 32 minutes of critical care time was spent in reviewing chart, labs, and images. Discussed with RN and VINCE. 10/10/2020 No acute events overnight. T-max of 100.1. Patient currently saturating 99% on vent settings of 26/500/100/10. Continues to have hyponatremia of 129. We will continue NS fluids. Repeat chemistries in the a.m. Patient's chart, labs, images were reviewed and discussed with RN A total of 31 minutes of critical care time was spent in reviewing chart, labs, and images. Discussed with RN and VINCE. 10/11/2020 No acute events overnight. Continues to have fevers to T-max of 101.1. Saturating 88% on vent settings of 26/500/100/15. Vent settings were adjusted due to low PO2 on ABGs. Will defer this to pulmonology. Sodium has normalized. Patient's chart, labs, images were reviewed and discussed with RN A total of 40 minutes of critical care time was spent in reviewing chart, labs, and images. Discussed with RN and VINCE. Vitals/I&O Vitals/I&O: Vital Signs Date Time Temp Pulse Resp B/P (MAP) Pulse Ox O2 Delivery O2 Flow Rate FiO2 10/11/20 12:13 88 Ventilator 10/11/20 06:00 100.1 92 25 100/71 (81) 100.1 10/10/20 18:36 98.0 l I & O 10/10/20 10/10/20 10/11/20 15:00 23:00 07:00 Intake Total 570 ml 5972 ml 1277 ml Output Total 640 ml 1650 ml 545 ml Balance -70 ml 4322 ml 732 ml Physical Exam Physical Exam: GENERAL: Morbidly obese female, intubated, sedated. On cooling blanket HEENT: Normocephalic, atraumatic. Anicteric. ET tube, OGT tube present. LUNGS: Coarse breath sounds anteriorly. HEART: S1, S2. No murmurs. ABDOMEN: Obese, soft. Bowel sounds present. Large pannus present GENITOURINARY: Wolf in place. Changed on October 10 EXTREMITIES: Trace edema, no cyanosis. DERMATOLOGIC: Warm, dry, no generalized rash. NEUROLOGIC: Intubated and sedated. Right upper extremity PICC line clean. General: Other (Intubated and sedated) Heart: Regular rate Abdomen: Soft, No tenderness Extremities: No clubbing, No cyanosis Skin: No rashes, No breakdown Labs Labs: Laboratory Tests Test 10/10/20 14:55 10/10/20 17:25 10/10/20 20:01 10/10/20 23:51 Urine Osmolality 180 mOsmol/kg (.) Glucose (Fingerstick) 240 mg/dL (70-99) 180 mg/dL (70-99) 81 mg/dL (70-99) Test 10/11/20 05:57 10/11/20 08:00 10/11/20 12:00 10/11/20 12:34 Glucose (Fingerstick) 108 mg/dL (70-99) 234 mg/dL (70-99) O2 Saturation 87 % (92-99) Arterial Blood pH 7.41 (7.35-7.45) Arterial Blood pCO2 at Patient Temp 43 mmHg (35-46) Arterial Blood pO2 at Patient Temp 55 mmHg (85-108) Arterial Blood HCO3 26 mmol/L (21-28) Arterial Blood Base Excess 2 mmol/L (-3-3) FiO2 100 White Blood Count 14.5 x10^3/uL (4.0-11.0) Red Blood Count 3.61 x10^6/uL (3.50-5.40) Hemoglobin 10.1 g/dL (12.0-15.5) Hematocrit 30.3 % (36.0-47.0) Mean Corpuscular Volume 84 fL (79-100) Mean Corpuscular Hemoglobin 28 pg (25-35) Mean Corpuscular Hemoglobin Concent 33 g/dL (31-37) Red Cell Distribution Width 14.5 % (11.5-14.5) Platelet Count 289 x10^3/uL (140-400) Neutrophils (%) (Auto) 86 % (31-73) Lymphocytes (%) (Auto) 8 % (24-48) Monocytes (%) (Auto) 5 % (0-9) Eosinophils (%) (Auto) 0 % (0-3) Basophils (%) (Auto) 0 % (0-3) Neutrophils # (Auto) 12.5 x10^3/uL (1.8-7.7) Lymphocytes # (Auto) 1.1 x10^3/uL (1.0-4.8) Monocytes # (Auto) 0.8 x10^3/uL (0.0-1.1) Eosinophils # (Auto) 0.0 x10^3/uL (0.0-0.7) Basophils # (Auto) 0.1 x10^3/uL (0.0-0.2) Sodium Level 139 mmol/L (136-145) Potassium Level 4.2 mmol/L (3.5-5.1) Chloride Level 103 mmol/L (98-107) Carbon Dioxide Level 30 mmol/L (21-32) Anion Gap 6 (6-14) Blood Urea Nitrogen 15 mg/dL (7-20) Creatinine 0.6 mg/dL (0.6-1.0) Estimated GFR (Cockcroft-Gault) 137.7 Glucose Level 205 mg/dL (70-99) Calcium Level 8.4 mg/dL (8.5-10.1) Magnesium Level 2.1 mg/dL (1.8-2.4) Triglycerides Level 220 mg/dL (0-150) Assessment and Plan Assessmemt and Plan Problems Medical Problems: (1) COVID-19 Status: Acute (2) Hypoxia Status: Acute Comment Review of Relevant I have reviewed the following items adryan (where applicable) has been applied. Justifications for Admission Other Justification AR AGUILAR MD Oct 11, 2020 13:19
--- NOTE | 2020-10-11 14:45 | NUR ---
SS following up with discharge planning. SS reviewed pt chart and discussed with pt RN. Pt is currently on the vent at 100%. COVID19 positive. Pt on IV Daptomycin, IV Meropenem, IV Micafungin, and PO Doxycycline. Pt on Fentanyl, Versed, Propofol, Precedex, and Vec. Not stable. SS will continue to follow for discharge planning.
[2020-10-11] MEDS: MEROPENEM 1 GM in IV NORMAL SALINE 100ML 100 ML IV SCH ×2 (14:48→21:25)
[2020-10-11] MEDS: DAPTOmycin (GENERIC) IVPB 640 MG in IV NORMAL SALINE 50ML 50 ML IV SCH (15:53)
[2020-10-12] VITALS (27 sets, daily range): BP systolic 68–157; BP diastolic 28–95
[2020-10-12] MEDS: DEXMEDETOMIDINE 400 MCG in IV NORMAL SALINE 100ML 96 ML IV PRN ×4 (00:39→08:13)
[2020-10-12] MEDS: MIDAZOLAM 100mg/100ml NS BAG 100 ML IV PRN ×2 (00:40→13:05)
[2020-10-12] MEDS: ACETAMINOPHEN 650 MG/20.3 ML SOLUTION. PEG PRN (03:17)
[2020-10-12] MEDS: PROPOFOL 100 ML IV PRN ×2 (04:37→06:42)
[2020-10-12 04:56] LABS: CALCIUM 8.8 mg/dL (8.5-10.1); CREATININE 0.7 mg/dL (0.6-1.0); GFR 115.2; POTASSIUM 3.8 mmol/L (3.5-5.1)
[2020-10-12] MEDS: INSULIN LISPRO 300 UNITS/3 ML VIAL. SQ SCH ×6 (05:30→18:00)
[2020-10-12] MEDS: MEROPENEM 1 GM in IV NORMAL SALINE 100ML 100 ML IV SCH ×3 (05:32→21:12)
[2020-10-12] MEDS: fentaNYL HIGH DOSE PCA 55 ML IV PRN (07:14)
[2020-10-12] MEDS: DOXYCYCLINE HYCLATE 100 MG TABLET PO SCH ×2 (08:01→20:02)
[2020-10-12] MEDS: ASPIRIN CHEWABLE 81 MG TABLET. PO SCH (08:01)
[2020-10-12] MEDS: MULTIVITAMINS,THERAPEUTIC 5 ML ORAL LIQUID. PEG SCH (08:01)
[2020-10-12] MEDS: FAMOTIDINE 20 MG/2 ML VIAL IVP SCH ×2 (08:01→20:02)
[2020-10-12] MEDS: VECURONIUM BROMIDE 50 MG in IV NORMAL SALINE 50ML 50 ML IV PRN ×2 (08:02→19:44)
--- NOTE | 2020-10-12 08:05 | PDOC ---
Infectious Disease Note Subjective: Subjective Status post code Patient intubated, sedated Temperature [id number] FiO2 100% On 2 pressors Discussed with nursing staff Vital Signs: Vital Signs Vital Signs Date Time Temp Pulse Resp B/P (MAP) Pulse Ox O2 Delivery O2 Flow Rate FiO2 10/12/20 07:00 108 26 87/68 (74) 78 Ventilator 10/12/20 05:00 100.6 100.6 10/11/20 13:49 98.0 Physical Exam: PHYSICAL EXAM GENERAL: Morbidly obese female, intubated, sedated. HEENT: Normocephalic, atraumatic. Anicteric. ET tube, OGT tube present. LUNGS: Coarse breath sounds anteriorly. HEART: S1, S2. No murmurs. ABDOMEN: Obese, soft. Bowel sounds present. Large pannus present GENITOURINARY: Wolf in place. Changed on October 10 EXTREMITIES: Trace edema, no cyanosis. DERMATOLOGIC: Warm, dry, no generalized rash. NEUROLOGIC: Intubated and sedated. Right upper extremity PICC line clean. Medications: Inpatient Meds: Medications reviewed. Labs: Lab Laboratory Tests Test 10/11/20 12:00 10/11/20 12:34 10/11/20 17:00 10/11/20 20:54 White Blood Count 14.5 x10^3/uL (4.0-11.0) Red Blood Count 3.61 x10^6/uL (3.50-5.40) Hemoglobin 10.1 g/dL (12.0-15.5) Hematocrit 30.3 % (36.0-47.0) Mean Corpuscular Volume 84 fL (79-100) Mean Corpuscular Hemoglobin 28 pg (25-35) Mean Corpuscular Hemoglobin Concent 33 g/dL (31-37) Red Cell Distribution Width 14.5 % (11.5-14.5) Platelet Count 289 x10^3/uL (140-400) Neutrophils (%) (Auto) 86 % (31-73) Lymphocytes (%) (Auto) 8 % (24-48) Monocytes (%) (Auto) 5 % (0-9) Eosinophils (%) (Auto) 0 % (0-3) Basophils (%) (Auto) 0 % (0-3) Neutrophils # (Auto) 12.5 x10^3/uL (1.8-7.7) Lymphocytes # (Auto) 1.1 x10^3/uL (1.0-4.8) Monocytes # (Auto) 0.8 x10^3/uL (0.0-1.1) Eosinophils # (Auto) 0.0 x10^3/uL (0.0-0.7) Basophils # (Auto) 0.1 x10^3/uL (0.0-0.2) Sodium Level 139 mmol/L (136-145) Potassium Level 4.2 mmol/L (3.5-5.1) Chloride Level 103 mmol/L (98-107) Carbon Dioxide Level 30 mmol/L (21-32) Anion Gap 6 (6-14) Blood Urea Nitrogen 15 mg/dL (7-20) Creatinine 0.6 mg/dL (0.6-1.0) Estimated GFR (Cockcroft-Gault) 137.7 Glucose Level 205 mg/dL (70-99) Calcium Level 8.4 mg/dL (8.5-10.1) Magnesium Level 2.1 mg/dL (1.8-2.4) Triglycerides Level 220 mg/dL (0-150) Glucose (Fingerstick) 234 mg/dL (70-99) 218 mg/dL (70-99) 140 mg/dL (70-99) Test 10/11/20 23:28 10/12/20 04:23 Glucose (Fingerstick) 131 mg/dL (70-99) Sodium Level 139 mmol/L (136-145) Potassium Level 3.8 mmol/L (3.5-5.1) Chloride Level 104 mmol/L (98-107) Carbon Dioxide Level 30 mmol/L (21-32) Anion Gap 5 (6-14) Blood Urea Nitrogen 15 mg/dL (7-20) Creatinine 0.7 mg/dL (0.6-1.0) Estimated GFR (Cockcroft-Gault) 115.2 Glucose Level 132 mg/dL (70-99) Calcium Level 8.8 mg/dL (8.5-10.1) Creatine Kinase 111 U/L (26-192) Objective: Assessment: Status post code 10/11/2020 Fever COVID-19 pneumonia. Status post remdesivir, on steroids Acute hypoxic respiratory failure secondary to COVID-19.s/p intubation Abnormal LFTs likely from COVID Morbid obesity. Diabetes mellitus. Hypertension. Hypokalemia.Hyponatremia Plan: Plan of Care Fevers despite broad-spectrum antibiotics, Hypotensive on pressors cultures nonrevealing, Continue Merrem, Dapto, micafungin, doxy Wolf changed October 10 Linezolid was discontinued due to high-grade fevers of 105*F on 10/07/2020 Follow up labs and cultures. Continue supportive care. Critically ill. Prognosis very poor Discussed with nursing staff DENYS KHALIL MD Oct 12, 2020 08:05
[2020-10-12] MEDS: ELECTROLYTE (ICU) PROTOCOL. MC SCH (08:26)
[2020-10-12] MEDS: INSULIN GLARGINE SYRINGE. SQ SCH (08:27)
--- NOTE | 2020-10-12 08:44 | RAD ---
EXAM: Chest, single view. HISTORY: Respiratory failure. COMPARISON: 10/07/2020 FINDINGS: A frontal view of the chest is obtained. There has been no significant change in diffuse in terstitial and alveolar infiltrate and small pleural effusions. There is no pneumothorax. There is st able enlargement of the cardiac silhouette. There is an endotracheal tube within the trachea. There i s a nasogastric tube within the stomach. There is a right PICC with the tip overlying expected locati on of the superior vena cava. IMPRESSION: 1. Stable diffuse infiltrate. 2. Stable support lines and tubes. Electronically signed by: Shannan Rodriguez MD (10/12/2020 8:41 AM) [id number]
[2020-10-12] MEDS ORDERED: NOREPINEPHRINE VIAL 8 MG in IV DEXTROSE 5% 250 ML IV PRN (08:45)
[2020-10-12 08:52] LABS: BASE EXCESS ABG -8 mmol/L (-3-3); CORRECTED PCO2 ABG 59 mmHg; CORRECTED PH ABG 7.17; CORRECTED PO2 ABG 46 mmHg; HCO3 ABG 20 mmol/L (21-28); PCO2 ABG 54 mmHg (35-46)
[2020-10-12 08:58] LABS: FIO2 ABG 100; PO2 ABG < 42 mmHg (85-108); SAT O2 ABG 60 % (92-99)
[2020-10-12] MEDS: MICAFUNGIN 100 MG in IV DEXTROSE 5% 100ML 100 ML IV SCH (09:53)
[2020-10-12] MEDS: NOREPINEPHRINE VIAL 32 MG in IV D5W 250ML IV PRN ×4 (10:48→21:11)
--- NOTE | 2020-10-12 11:21 | PDOC ---
PULMONARY PROGRESS NOTES DATE: 10/12/20 TIME: 11:17 Subjective Remains on vent support 100% and PEEP of 12 Had a vagal episode this morning. Heart rate went down in the 40s. Patient became more hypoxic. Febrile hypoxia on examination, oxygen saturations 86% Shock, now requiring 2 vasopressors. Vitals Vital Signs Date Time Temp Pulse Resp B/P (MAP) Pulse Ox O2 Delivery O2 Flow Rate FiO2 10/12/20 09:49 Ventilator 10/12/20 09:00 88 10/12/20 07:00 108 26 87/68 (74) 10/12/20 05:00 100.6 100.6 10/11/20 13:49 98.0 Comments Patient seen during pandemic sedated on vent nc at RRR accessory muscle use obese intubated No obvious rash or edema Labs Laboratory Tests Test 10/10/20 11:43 10/10/20 14:55 10/10/20 17:25 10/10/20 20:01 Glucose (Fingerstick) 140 mg/dL (70-99) 240 mg/dL (70-99) 180 mg/dL (70-99) Urine Osmolality 180 mOsmol/kg (.) Urine Random Sodium <20 mmol/L (Not Estab.) Test 10/10/20 23:51 10/11/20 05:57 10/11/20 08:00 10/11/20 12:00 Glucose (Fingerstick) 81 mg/dL (70-99) 108 mg/dL (70-99) O2 Saturation 87 % (92-99) Arterial Blood pH 7.41 (7.35-7.45) Arterial Blood pCO2 at Patient Temp 43 mmHg (35-46) Arterial Blood pO2 at Patient Temp 55 mmHg (85-108) Arterial Blood HCO3 26 mmol/L (21-28) Arterial Blood Base Excess 2 mmol/L (-3-3) FiO2 100 White Blood Count 14.5 x10^3/uL (4.0-11.0) Red Blood Count 3.61 x10^6/uL (3.50-5.40) Hemoglobin 10.1 g/dL (12.0-15.5) Hematocrit 30.3 % (36.0-47.0) Mean Corpuscular Volume 84 fL (79-100) Mean Corpuscular Hemoglobin 28 pg (25-35) Mean Corpuscular Hemoglobin Concent 33 g/dL (31-37) Red Cell Distribution Width 14.5 % (11.5-14.5) Platelet Count 289 x10^3/uL (140-400) Neutrophils (%) (Auto) 86 % (31-73) Lymphocytes (%) (Auto) 8 % (24-48) Monocytes (%) (Auto) 5 % (0-9) Eosinophils (%) (Auto) 0 % (0-3) Basophils (%) (Auto) 0 % (0-3) Neutrophils # (Auto) 12.5 x10^3/uL (1.8-7.7) Lymphocytes # (Auto) 1.1 x10^3/uL (1.0-4.8) Monocytes # (Auto) 0.8 x10^3/uL (0.0-1.1) Eosinophils # (Auto) 0.0 x10^3/uL (0.0-0.7) Basophils # (Auto) 0.1 x10^3/uL (0.0-0.2) Sodium Level 139 mmol/L (136-145) Potassium Level 4.2 mmol/L (3.5-5.1) Chloride Level 103 mmol/L (98-107) Carbon Dioxide Level 30 mmol/L (21-32) Anion Gap 6 (6-14) Blood Urea Nitrogen 15 mg/dL (7-20) Creatinine 0.6 mg/dL (0.6-1.0) Estimated GFR (Cockcroft-Gault) 137.7 Glucose Level 205 mg/dL (70-99) Calcium Level 8.4 mg/dL (8.5-10.1) Magnesium Level 2.1 mg/dL (1.8-2.4) Triglycerides Level 220 mg/dL (0-150) Test 10/11/20 12:34 10/11/20 17:00 10/11/20 20:54 10/11/20 23:28 Glucose (Fingerstick) 234 mg/dL (70-99) 218 mg/dL (70-99) 140 mg/dL (70-99) 131 mg/dL (70-99) Test 10/12/20 04:23 10/12/20 08:50 Sodium Level 139 mmol/L (136-145) Potassium Level 3.8 mmol/L (3.5-5.1) Chloride Level 104 mmol/L (98-107) Carbon Dioxide Level 30 mmol/L (21-32) Anion Gap 5 (6-14) Blood Urea Nitrogen 15 mg/dL (7-20) Creatinine 0.7 mg/dL (0.6-1.0) Estimated GFR (Cockcroft-Gault) 115.2 Glucose Level 132 mg/dL (70-99) Calcium Level 8.8 mg/dL (8.5-10.1) Creatine Kinase 111 U/L (26-192) O2 Saturation 60 % (92-99) Arterial Blood pH 7.20 (7.35-7.45) Arterial Blood pH (Temp corrected) 7.17 Arterial Blood pCO2 at Patient Temp 54 mmHg (35-46) Arterial Blood pCO2 (Temp correct) 59 mmHg Arterial Blood pO2 at Patient Temp < 42 mmHg (85-108) Arterial Blood pO2 (Temp corrected) 46 mmHg Arterial Blood HCO3 20 mmol/L (21-28) Arterial Blood Base Excess -8 mmol/L (-3-3) FiO2 100 Laboratory Tests Test 10/11/20 12:00 10/11/20 12:34 10/11/20 17:00 10/11/20 20:54 White Blood Count 14.5 x10^3/uL (4.0-11.0) Red Blood Count 3.61 x10^6/uL (3.50-5.40) Hemoglobin 10.1 g/dL (12.0-15.5) Hematocrit 30.3 % (36.0-47.0) Mean Corpuscular Volume 84 fL (79-100) Mean Corpuscular Hemoglobin 28 pg (25-35) Mean Corpuscular Hemoglobin Concent 33 g/dL (31-37) Red Cell Distribution Width 14.5 % (11.5-14.5) Platelet Count 289 x10^3/uL (140-400) Neutrophils (%) (Auto) 86 % (31-73) Lymphocytes (%) (Auto) 8 % (24-48) Monocytes (%) (Auto) 5 % (0-9) Eosinophils (%) (Auto) 0 % (0-3) Basophils (%) (Auto) 0 % (0-3) Neutrophils # (Auto) 12.5 x10^3/uL (1.8-7.7) Lymphocytes # (Auto) 1.1 x10^3/uL (1.0-4.8) Monocytes # (Auto) 0.8 x10^3/uL (0.0-1.1) Eosinophils # (Auto) 0.0 x10^3/uL (0.0-0.7) Basophils # (Auto) 0.1 x10^3/uL (0.0-0.2) Sodium Level 139 mmol/L (136-145) Potassium Level 4.2 mmol/L (3.5-5.1) Chloride Level 103 mmol/L (98-107) Carbon Dioxide Level 30 mmol/L (21-32) Anion Gap 6 (6-14) Blood Urea Nitrogen 15 mg/dL (7-20) Creatinine 0.6 mg/dL (0.6-1.0) Estimated GFR (Cockcroft-Gault) 137.7 Glucose Level 205 mg/dL (70-99) Calcium Level 8.4 mg/dL (8.5-10.1) Magnesium Level 2.1 mg/dL (1.8-2.4) Triglycerides Level 220 mg/dL (0-150) Glucose (Fingerstick) 234 mg/dL (70-99) 218 mg/dL (70-99) 140 mg/dL (70-99) Test 10/11/20 23:28 10/12/20 04:23 10/12/20 08:50 Glucose (Fingerstick) 131 mg/dL (70-99) Sodium Level 139 mmol/L (136-145) Potassium Level 3.8 mmol/L (3.5-5.1) Chloride Level 104 mmol/L (98-107) Carbon Dioxide Level 30 mmol/L (21-32) Anion Gap 5 (6-14) Blood Urea Nitrogen 15 mg/dL (7-20) Creatinine 0.7 mg/dL (0.6-1.0) Estimated GFR (Cockcroft-Gault) 115.2 Glucose Level 132 mg/dL (70-99) Calcium Level 8.8 mg/dL (8.5-10.1) Creatine Kinase 111 U/L (26-192) O2 Saturation 60 % (92-99) Arterial Blood pH 7.20 (7.35-7.45) Arterial Blood pH (Temp corrected) 7.17 Arterial Blood pCO2 at Patient Temp 54 mmHg (35-46) Arterial Blood pCO2 (Temp correct) 59 mmHg Arterial Blood pO2 at Patient Temp < 42 mmHg (85-108) Arterial Blood pO2 (Temp corrected) 46 mmHg Arterial Blood HCO3 20 mmol/L (21-28) Arterial Blood Base Excess -8 mmol/L (-3-3) FiO2 100 Medications Active Scripts Medications Dose Route/Sig Max Daily Dose Days Date Category Fluoxetine Hcl 60 Mg Tablet 1 Tab PO DAILY 09/30/20 Reported Losartan Potassium 50 Mg Tablet 1 Tab PO DAILY 09/30/20 Reported Hydrochlorothiazide 25 Mg Tablet 1 Tab PO DAILY 09/30/20 Reported Labetalol Hcl 200 Mg Tablet 1 Tab PO BID 12/28/14 Rx Lasix (Furosemide) 20 Mg Tablet 1 Tab PO DAILY 12/28/14 Rx Percocet 5-325 Mg Tablet (Oxycodone/Acetaminophen) 1 Each Tablet 1 Tab PO Q4HRS W/A 12/28/14 Rx Ibuprofen 800 Mg Tablet 800 Mg PO Q6H PRN 12/28/14 Rx Methyldopa 500 Mg Tablet 500 Mg PO QID 12/23/14 Reported Zoloft (Sertraline Hcl) 25 Mg Tablet 25 Mg .ROUTE DAILY 12/23/14 Reported Glyburide 2.5 Mg Tablet 2.5 Mg PO QID 12/23/14 Reported Procardia (Nifedipine) 10 Mg Capsule 60 Mg PO DAILY 12/23/14 Reported Tylenol (Acetaminophen) 325 Mg Tablet 325 Mg PO 08/25/13 Reported Prena1 Plus Combo Pack ( No.39/Iron/Fa #6/Dha) 1 Each Combo..pkg 1 Each PO 08/25/13 Reported Comments Chest x-ray 10/12/2020 reviewed Diffuse unchanged bilateral interstitial infiltrates. Chest x-ray reviewed 10/08. No change in bilateral interstitial infiltrates. cxr 10/06 reviewed, b lat infilt increased ett too high Chest x-ray reviewed dated 10/03/2020. Extensive bilateral infiltrates. Slightly decreased in the right lower lobe. Impression . IMPRESSION: 1. Acute hypoxic respiratory failure secondary to COVID-19 viral pneumonia/ARDS/acute lung injury.----- worsening,now intubated 10/01/20. Oxygen requirement continues to worsen. 2. Underlying morbid obesity with a BMI of 58, is another main contributing factor to the severity of hypoxia. 3. No significant tobacco history. 4. Abnormal chest x-ray with bilateral interstitial infiltrates consistent with viral pneumonia. 5. electrolyte abnl resolved 6. High-grade fever secondary to COVID-19 viral infection. Currently covered with broad-spectrum antibiotic per infectious disease recommendation. 7. Episode of bradycardia 10/12/2020 8. Shock. Currently on dopamine and Levophed. Plan . Updated 10/12/2020 Continue current vent support 26/500/100/10, increase PEEP to 14. Increase respiratory rate to 30. Prognosis extremely grim. Continue adequate sedation, on paralytics Follow CXR/ ABG-and make changes as needed. Follow ID recommendations in regards to antibiotics S/P remdesivir for full course, she has also completed full course of steroids Continue tube feeding for nutritional support DVT/GI prophylaxis:lovenox Continue with present vasopressor support. Taper off dopamine since her heart rate is in 130s. Continue Levophed and may have to increase the dose. Discussed with RN and RT Will reach out to again Critical care time 30 minutes Updated 10/11/2020 Continue current vent support 26/500/100/10, increase PEEP to 12 Continue adequate sedation, on paralytics Follow CXR/ ABG-increase PEEP Follow ID recommendations in regards to antibiotics S/P remdesivir for full course, she has also completed full course of steroids Continue tube feeding for nutritional support DVT/GI prophylaxis:lovenox Discussed with RN and RT Critical care time 30 minutes NILO CURTIS MD Oct 12, 2020 11:21
--- NOTE | 2020-10-12 12:50 | NUR ---
Patient's SPO2 steadily declining this morning. At 0840, patient's HR dropped from 110s to 40s, patient laid flat, back board placed under patient and HR slowly started coming back up. Dopamine started. Patient went into junctional rhythm at 0908, atropine given, dopamine increased. Patient then went into SVT, rate 140s-160s. Levophed started and rapidly titrated. Changes made to ventilator settings. Rapid titration notes: Patient unstable, requiring rapid titration of levophed d/t sustained MAP <65 beginning at 0853. Starting rate at 0.1 mcg/kg/min and patient stabilized at 1215 with MAP 114 with levophed gtt currently infusing at 0.8 mcg/kg/min; the max rate during this time was 0.8 mcg/kg/min of medication administered during charting block which ended at 1215. Patient unstable, requiring rapid titration of dopamine d/t sustained MAP <65 and bradycardia beginning at 0840. Starting rate at 5 mcg/kg/min and patient stabilized at 1115 with MAP 88 and HR 140s with dopamine gtt currently infusing at 0 mcg/kg/min; the max rate during this time was 10 mcg/kg/min of medication administered during charting block which ended at 1115. Pt in sinus tachycardia, HR 148, Spo2 77%.
--- NOTE | 2020-10-12 13:15 | PDOC ---
[employer] PROGRESS NOTE Date of Service DOS: DATE: 10/12/20 TIME: 13:11 Chief Complaint Chief Complaint Covid 19 pneumonia/ ARDS Septic shock requiring vasopressor support 10/12/2020 Viral sepsis Acute hypoxic resp failure Super morbid obesity Extensive pulmonary opacities with areas of consolidation // multilobar pneumonia versus noncardiogenic pulmonary edema from ARDS Hyponatremia plan ADMIT ICU BED Consult pulmonary dvt prophylaxis Vapotherm 40 L 100% with additional 100% nonrebreather, plan intubation 8- IV STEROIDS COVID 19 PROTOCOL IV DOXYCYCLINE 100MG BID SERIAL CXR Critically ill History of Present Illness History of Present Illness 34 year old female past medical history hypertension diabetes presented with a chief complaint of shortness of breath. diagnosed with COVID-19 this past Thursday. in er c/o shortness of breath cough fever muscle aches x1 week. //not vaccinated against COVID-19. Patient states over the last 2 days shortness of breath is progressed to become worse. Patient states she cannot catch her breath therefore she called 911. Upon EMS arrival patient's oxygen saturation in the upper 80s on room air. On arrival in ER patient patient on 15 L nonrebreather NOW IN NEED OF INTUBATION FOR Covid 19 pneumonia // Viral sepsis Acute hypoxic resp failure Super morbid obesity CXR C/W Extensive pulmonary opacities with areas of consolidation // multilobar pneumonia versus noncardiogenic pulmonary edema from ARDS. 10/02/2020: Afe low-grade fever in ICU yesterday (99.6 F). Intubated in ICU y day, on vent with FiO2 100%, PEEP 8. She was initiated on remdesivir. We will continue treatment with IV steroids and antibiotics. Still hyperglycemic today; will adjust insulin. Appreciate pulmonology recommendations and management patient. Critical care time 30 minutes spent reviewing charts, reviewing labs, examination, discussion with RN. 10/03/2020: Febrile overnight with T-max 101.1 F. On vent with FiO2 100%, PEEP 8. Chest x-ray today showed extensive pulmonary infiltrates again demonstrated with some improved aeration at the left perihilar upper lobe and lingula. Morning labs pending at this time. Continue IV antibiotics. Continue IV Decadron to complete 10-day treatment. Continue supportive care. Critical care time 30 minutes spent reviewing charts, reviewing labs, reviewing imaging, and discussion with RN. 10/04/2020: Febrile overnight with T-max 100.3 F. On ventilator with FiO2 100%, PEEP 8. Last dose of remdesivir today. Continue IV antibiotics. Continue IV Decadron to complete 10-day treatment. Continue supportive care. Critical care time 30 minutes spent reviewing charts, reviewing labs, reviewing imaging, and discussion with RN. 10/05/2020: Afebrile overnight. On vent with FiO2 100%, PEEP 8. She has completed remdesivir. We will continue with IV steroids and IV antibiotics to complete 10- day treatment (last day should be 10/11/2020). Continue supportive care. Critical care time 30 minutes spent reviewing charts, reviewing labs, reviewing imaging, and discussion with RN. 10/06/2020: Febrile overnight with T-max 100.3 F. On vent with FiO2 100%, PEEP 8. WBC 15.1. Continue Tylenol as needed (rectal suppository prn if needed). We will continue with IV steroids and IV antibiotics to complete 10-day treatment (last day should be 10/11/2020). Continue supportive care. Critical care time 30 minutes spent reviewing charts, reviewing labs, reviewing imaging, and discussion with RN. 10/07/2020: Febrile overnight with T-max 104.9 F. CRP significantly elevated. Discussed with pharmacy, no abdominal available at this time. Continue Tylenol as needed (rectal suppository prn if needed). Cooling blanket as needed. Chest x-ray yesterday showed increased diffuse pulmonary consolidations. Will continue with IV steroids and IV antibiotics to complete 10-day treatment (last day should be 10/11/2020). Continue supportive care. Critical care time 30 minutes spent reviewing charts, reviewing labs, reviewing imaging, and discussion with RN. 10/08/2020 No acute events overnight. T-max of 100.1 in the last 24 hours. Chest x-ray shows no acute change. Currently saturating 100% on vent settings of 26/500/100/10. Patient's chart, labs, images were reviewed and discussed with RN. A total of 34 minutes of critical care time was spent in reviewing chart, labs, and images. Discussed with RN and SW. 10/09/2020 Patient seen and examined bedside. Afebrile in the last 24 hours. Patient saturating 100% on vent settings of 26/500/100/10. Hyponatremic at 128. Started NS at 50 cc/h for at least 24 hours. Repeat chemistries in the a.m. Patient's chart, labs, images were reviewed and discussed with RN A total of 32 minutes of critical care time was spent in reviewing chart, labs, and images. Discussed with RN and VINCE. 10/10/2020 No acute events overnight. T-max of 100.1. Patient currently saturating 99% on vent settings of 26/500/100/10. Continues to have hyponatremia of 129. We will continue NS fluids. Repeat chemistries in the a.m. Patient's chart, labs, images were reviewed and discussed with RN A total of 31 minutes of critical care time was spent in reviewing chart, labs, and images. Discussed with RN and VINCE. 10/11/2020 No acute events overnight. Continues to have fevers to T-max of 101.1. Saturating 88% on vent settings of 26/500/100/15. Vent settings were adjusted due to low PO2 on ABGs. Will defer this to pulmonology. Sodium has normalized. Patient's chart, labs, images were reviewed and discussed with RN A total of 40 minutes of critical care time was spent in reviewing chart, labs, and images. Discussed with RN and VINCE. 10/12/2020 No acute events overnight. Patient continues to have high-grade fevers to 103 the last 24 hours. This morning patient did have a hypotensive and bradycardic episode with heart rate down to 40s and systolic blood pressure down to 70s. Dopamine bolus was given and started on Levophed drip. ABG showing hypercapnia and hypoxemia. Patient's overall prognosis is extremely poor due to multiple morbidities which includes her extremely high BMI, Covid infection,. Patient's chart, labs, images were reviewed and discussed with RN A total of 35 minutes of critical care time was spent in reviewing chart, labs, and images. Discussed with RN and VINCE. Vitals/I&O Vitals/I&O: Vital Signs Date Time Temp Pulse Resp B/P (MAP) Pulse Ox O2 Delivery O2 Flow Rate FiO2 10/12/20 12:00 Mechanical Ventilator 10/12/20 12:00 103.0 108 30 157/95 (115) 77 103.0 10/11/20 13:49 98.0 I & O 10/11/20 10/11/20 10/12/20 15:00 23:00 07:00 Intake Total 570 ml 3637 ml 965 ml Output Total 375 ml 900 ml 600 ml Balance 195 ml 2737 ml 365 ml Physical Exam Physical Exam: GENERAL: Morbidly obese female, intubated, sedated. HEENT: Normocephalic, atraumatic. Anicteric. ET tube, OGT tube present. LUNGS: Coarse breath sounds anteriorly. HEART: S1, S2. No murmurs. ABDOMEN: Obese, soft. Bowel sounds present. Large pannus present GENITOURINARY: Wolf in place. Changed on October 10 EXTREMITIES: Trace edema, no cyanosis. DERMATOLOGIC: Warm, dry, no generalized rash. NEUROLOGIC: Intubated and sedated. Right upper extremity PICC line clean. General: Other (Intubated and sedated) Heart: Regular rate Abdomen: Soft, No tenderness Extremities: No clubbing, No cyanosis Skin: No rashes, No breakdown Labs Labs: Laboratory Tests Test 10/11/20 17:00 10/11/20 20:54 10/11/20 23:28 10/12/20 04:23 Glucose (Fingerstick) 218 mg/dL (70-99) 140 mg/dL (70-99) 131 mg/dL (70-99) Sodium Level 139 mmol/L (136-145) Potassium Level 3.8 mmol/L (3.5-5.1) Chloride Level 104 mmol/L (98-107) Carbon Dioxide Level 30 mmol/L (21-32) Anion Gap 5 (6-14) Blood Urea Nitrogen 15 mg/dL (7-20) Creatinine 0.7 mg/dL (0.6-1.0) Estimated GFR (Cockcroft-Gault) 115.2 Glucose Level 132 mg/dL (70-99) Calcium Level 8.8 mg/dL (8.5-10.1) Creatine Kinase 111 U/L (26-192) Test 10/12/20 08:50 10/12/20 11:54 O2 Saturation 60 % (92-99) Arterial Blood pH 7.20 (7.35-7.45) Arterial Blood pH (Temp corrected) 7.17 Arterial Blood pCO2 at Patient Temp 54 mmHg (35-46) Arterial Blood pCO2 (Temp correct) 59 mmHg Arterial Blood pO2 at Patient Temp < 42 mmHg (85-108) Arterial Blood pO2 (Temp corrected) 46 mmHg Arterial Blood HCO3 20 mmol/L (21-28) Arterial Blood Base Excess -8 mmol/L (-3-3) FiO2 100 Glucose (Fingerstick) 134 mg/dL (70-99) Assessment and Plan Assessmemt and Plan Problems Medical Problems: (1) COVID-19 Status: Acute (2) Hypoxia Status: Acute Comment Review of Relevant I have reviewed the following items adryan (where applicable) has been applied. Medications: Current Medications Medications (Trade) Dose Ordered Sig/Vidal Route PRN Reason Start Time Stop Time Status Last Admin Dose Admin Meropenem 1 gm/ Sodium Chloride 100 ml @ 200 mls/hr Q8HRS IV 10/11/20 14:00 10/12/20 05:32 Daptomycin 640 mg/ Sodium Chloride 50 ml @ 100 mls/hr Q24H IV 10/11/20 16:00 10/11/20 15:53 Norepinephrine Bitartrate 8 mg/ Dextrose 258 ml @ 35.217 mls/ hr CONT PRN IV PER PROTOCOL 10/12/20 08:45 10/12/20 08:53 Norepinephrine Bitartrate 32 mg/ Dextrose 250 ml @ 8.531 mls/ hr CONT PRN IV SEE I/O RECORD 10/12/20 10:45 10/12/20 10:48 Justifications for Admission Other Justification AR AGUILAR MD Oct 12, 2020 13:15
[2020-10-12] MEDS: VASOPRESSIN 20 UNIT in IV DEXTROSE 5% 100ML 100 ML IV PRN ×2 (14:36→21:10)
--- NOTE | 2020-10-12 15:16 | NUR ---
Patient unstable, requiring rapid titration of Levophed d/t sustained MAP <65 beginning at 1420. Starting rate at 0.74 mcg/kg/min. Levophed gtt currently at maximum dose infusing at 1 mcg/kg/min. Vasopressin started at 1436. Block charting ended at 1436. Pt in sinus tachycardia, SBP via manual/doppler was 110, SPO2 72%.
[2020-10-12] MEDS: DAPTOmycin (GENERIC) IVPB 640 MG in IV NORMAL SALINE 50ML 50 ML IV SCH (15:34)
[2020-10-12] MEDS ORDERED: PHENYLEPHRINE INJ 50 MG in IV NORMAL SALINE 250ML 250 ML IV PRN (16:00)
--- NOTE | 2020-10-12 16:43 | NUR ---
Patient unstable, requiring rapid titration of phenylephrine d/t sustained MAP <65 beginning at 1605. Starting rate at 0.05 mcg/kg/min and patient at maximum dose with gtt currently infusing at 3 mcg/kg/min. Block charting ended at 1645. Via manual cuff and doppler, SBP 80. HR 144, SPO2 74.
[2020-10-12] MEDS ORDERED: PHENYLEPHRINE INJ 100 MG in IV NS 250 ML IV PRN (17:30)
--- NOTE | 2020-10-12 18:40 | PDOC ---
Provider Note Date of Service: DATE: 10/12/20 TIME: 18:36 Provider Note ANESTHESIA note: Requested for Arterial line placement for pt with Covid 19 respiratory failure. # 20 ga Arrow right radial artery with doppler assist. sterile technique with chlorhexadine prep. Good wave form on monitor. Pt on pressor agents for B/P Justifications for Admission Other Justification SUZY HARRINGTON CRNA Oct 12, 2020 18:40
[2020-10-12] MEDS ORDERED: RINGERS LACTATED IV ONE (21:30)
[2020-10-12] MEDS ORDERED: HYDROCORTISONE SOD SUCC/PF 100 MG/2 ML VIAL. IVP SCH (21:30)
[2020-10-12] MEDS ORDERED: IV RINGERS,LACTATED 500ML 500 ML IV ONE (21:30)
[2020-10-12 21:35] LABS: BASE EXCESS ABG -22 mmol/L (-3-3); HCO3 ABG 11 mmol/L (21-28); PCO2 ABG 52 mmHg (35-46)
[2020-10-12] MEDS ORDERED: SODIUM BICARB ADULT 8.4% 50 MEQ/50 ML DISP.SYRIN. ONE (21:47)
[2020-10-12] MEDS ORDERED: ATROPINE 1 MG/10 ML DISP.SYRINGE. ONE (21:47)
[2020-10-12] MEDS ORDERED: CALCIUM CHLORIDE 1,000 MG/10 ML DISP.SYRIN ONE (21:47)
[2020-10-12] MEDS ORDERED: DEXTROSE 50% 25 GM / 50ML DISP.SYRIN. IV ONE (21:47)
[2020-10-12] MEDS ORDERED: EPINEPHrine SYRINGE 1 MG/10 ML SYRINGE ONE (21:47)
--- NOTE | 2020-10-12 22:17 | PHYS DOC ---
CODE REPORT CODE REPORT I was called to the intensive care unit for a patient that had a cardiac arrest, in summary this is a very unfortunate 34-year-old female that was Covid positive and then subsequently intubated and has been on a ventilator for almost 2 weeks, the patient is maxed out on vasopressors per nursing report and is on an epi drip, Levophed, vasopressin, intubated for almost 2 weeks, they said that during the daytime she had had some episodes of hypoxia and bradycardia but approximately 930 this evening had a bradycardic arrest, when I arrived to the room the patient had CPR in progress, was ventilated, we did several rounds of ACLS, did CPR for roughly 30 minutes, epinephrine pushes will increase the patient's blood pressure for about a minute or 2, she is already on an epi drip, however the O2 sat is in the 50s, the patient is bradycardic and cannot maintain a blood pressure. In my opinion this is a very grave prognosis and is already on maximal therapy, I called her brother and had a long and detailed conversation with him, he did not want care was drawn but he gave us permission to stop the CPR, he did ask that we call him when the time of was noted, currently the patient's blood pressure is in the 60s, O2 sat is in the 30s intubated, and being bagged by respiratory, we will continue to monitor the patient and when she passes we will call and let him know. In this patient's case the family wishes were honored and patient will be allowed to pass naturally although no care was withdrawn other than CPR was terminated ANDREA ESTRADA MD Oct 12, 2020 22:17
--- NOTE | 2020-10-12 23:05 | NUR ---
PT WENT ASYSTOLE AT 2146, CODE MARIA DE JESUS WAS CALLED AND CPR STARTED PER ACLS PROTOCOL AND RECORDED PER RESUSCITATION RECORD. PT BRIEFLY GAINED PULSE BACK, DR ESTRADA CALLED AND SPOKE TO TATUM RODRIGUEZ WHO IS PT 'S BROTHER ALSO LISTED NEXT OF KIN AND HE DECIDED NO FURTHER CPR ATTEMPTS , BUT TO CONTINUE WITH CURRENT TREATMENTS. PT AT 2211, MAXED OUT ON LEVOPHED NEOSYNEPHRINE , ALSO ON VASOPRESSIN ALSO SEDATION DRUGS. I NOTIFIED TATUM OF PT'S AND HE SAID HE WOULD NOTIFY PT'S AND CHILDREN AND THAT HE AND THE PT'S WILL BE HERE IN HOUR TO SEE PT .
[2020-10-12 23:38] LABS: PO2 ABG 48 mmHg (85-108); SAT O2 ABG 65 % (92-99)
== END 2020-10-13 00:30 | DRG 870 ==
LOC: ER 04:15 → ED HOLD 04:41 → 5 SOUTH 12:05 → 6 SOUTH 21:15 → 1 WEST ICU 10-01 07:01
PROVIDERS: ADMIT Internal Medicine; ATTEND Internal Medicine
PROC: 5A0935A Assistance with Respiratory Ventilation, Less than 24 Consecutive Hours, High Flow/Velocity Cannula (ICD-10-PCS; 2020-09-30)
PROC: 5A1955Z Respiratory Ventilation, Greater than 96 Consecutive Hours (ICD-10-PCS; principal; 2020-10-01)
PROC: 5A0935A Assistance with Respiratory Ventilation, Less than 24 Consecutive Hours, High Flow/Velocity Cannula (ICD-10-PCS; 2020-10-01)
PROC: 02HV33Z Insertion of Infusion Device into Superior Vena Cava, Percutaneous Approach (ICD-10-PCS; 2020-10-01)
PROC: B548ZZA Ultrasonography of Superior Vena Cava, Guidance (ICD-10-PCS; 2020-10-01)
PROC: XW033E5 Introduction of Remdesivir Anti-infective into Peripheral Vein, Percutaneous Approach, New Technology Group 5 (ICD-10-PCS; 2020-10-01)
PROC: 0BH17EZ Insertion of Endotracheal Airway into Trachea, Via Natural or Artificial Opening (ICD-10-PCS; 2020-10-01)
PROC: 5A12012 Performance of Cardiac Output, Single, Manual (ICD-10-PCS; 2020-10-12)
PROC: 03HY32Z Insertion of Monitoring Device into Upper Artery, Percutaneous Approach (ICD-10-PCS; 2020-10-12)
DX: A41.89 Other specified sepsis (principal); J12.82 Pneumonia due to coronavirus disease 2019; J96.01 Acute respiratory failure with hypoxia; U07.1 COVID-19; R65.21 Severe sepsis with septic shock; E87.1 Hypo-osmolality and hyponatremia; Z68.44 Body mass index [BMI] 60.0-69.9, adult; E11.65 Type 2 diabetes mellitus with hyperglycemia; E66.01 Morbid (severe) obesity due to excess calories; E87.6 Hypokalemia; I10 Essential (primary) hypertension; Z82.49 Family history of ischemic heart disease and other diseases of the circulatory system; I46.9 Cardiac arrest, cause unspecified
CPT/HCPCS: 36415; 36569; 36600; 71045; 80048; 80053; 80076; 81001; 82550; 82728; 82805; 82962; 83605; 83615; 83735; 83930; 83935; 84300; 84443; 84478; 84484; 85007; 85025; 85610; 85730; 86140; 87040; 87070; 87086; 87106; 87205; 93005; 94002; 94003; 94760; 96365; 96366; 96375; J0171; J0330; J0461; J0696; J0878; J1100; J1650; J1815; J1956; J2060; J2185; J2248; J2250; J2270; J2370; J2405; J2543; J2704; J2920; J3010; J3480; J3490; J7030; J7050; J7060; J7120; 99285-25; G0378